=== PATIENT | male | born 1940 | race Caucasian/White ===

== ENCOUNTER 2020-05-05 14:12 | Inpatient (IN) | payer MEDICARE, BC ==
[~2020-05-05 14:12] MED LIST: Iopamidol 370 76% 100 ML VIAL ONE; Iopamidol 370 76% 50 ML VIAL FS ONE; Metoprolol Tartrate 5 MG/5 ML VIAL ONE; Nitroglycerin 0.4 MG TAB (25 Tab Bottle) ONE
[2020-05-05 14:35] LABS: #Eosinphils 0.1 thou/uL (0.0-0.7); #Lymphocytes 2.1 thou/uL (1.20-3.40); #Monocytes 1.1 thou/uL (0.11-0.59); #Neutrophils 8.2 thou/uL (1.40-6.50); %Basophils 0.3 % (0.0-1.0); %Eosinophils 0.4 % (0.0-10.0); %Monocytes 9.8 % (0.0-10.0); %Neutrophils 71.5 % (42.0-75.0); Hemoglobin 15.4 g/dL (14.0-18.0); Mean Corpuscular HGB CONC 33.9 g/dL (32.0-36.0); Mean Corpuscular Volume 91.4 fL (78.0-98.0); Mean Platelet Volume 9.6 fL (7.4-10.4); Platelet Count 188 thou/uL (130-400); RBC Distribution Width 11.5 % (11.5-14.5); Red Blood Cell (RBC) Count 4.96 mill/uL (4.70-6.10); White Blood Cell (WBC) Count 11.5 thou/uL (4.8-10.8)
--- NOTE | 2020-05-05 14:45 | RAD ---
Portable frontal chest radiograph: 05/05/2020 COMPARISON: None HISTORY: Chest pain FINDINGS: There is prominence of the cardiac silhouette. There is atherosclerotic ulceration aortic a rch. Cervical spine fusion hardware is present. Linear interstitial density in the perihilar regions and both lung bases noted, nonspecific and of uncertain chronicity. No focal consolidation or alveolar edema. IMPRESSION: Interstitial prominence as above.
[2020-05-05 14:56] LABS: ALT (SGPT) 24 U/L (8-55); AST (SGOT) 46 U/L (5-34); Albumin 3.8 g/dL (3.4-4.8); Alkaline Phosphatase 72 U/L (40-110); Anion Gap 16 mmol/L (10-20); BUN (Urea Nitrogen) 36 mg/dL (8.4-25.7); Bilirubin, Total 1.2 mg/dL (0.2-1.2); Calc. Creatinine Clearance 0 mL/min (70-130); Calcium 9.2 mg/dL (7.8-10.44); Carbon Dioxide 22 mmol/L (23-31); Chloride 106 mmol/L (98-107); Glucose 180 mg/dL (83-110); Potassium 4.7 mmol/L (3.5-5.1); Protein, Total 6.8 g/dL (5.8-8.1); Sodium 139 mmol/L (136-145)
[2020-05-05 15:39] LABS: CKMB 32.9 ng/mL (0-6.6)
[2020-05-05] MEDS ORDERED: Acetaminophen/Codeine 30-300mg Tablet PO PRN ×2 (16:15)
[2020-05-05] MEDS ORDERED: Nitroglycerin 0.4 MG TAB (25 Tab Bottle) SL PRN (16:15)
[2020-05-05] MEDS ORDERED: Nitroglycerin 0.4 MG TAB (25 Tab Bottle) ONE (17:08)
[2020-05-05] MEDS ORDERED: Morphine 2 MG/ML VIAL ONE ×4 (17:33→21:40)
[2020-05-05] MEDS ORDERED: Morphine 2 MG/ML VIAL SLOW IVP PRN (17:54)
[2020-05-05] MEDS ORDERED: Digoxin 0.5 MG/2 ML AMP SLOW IVP SCH (18:00)
--- NOTE | 2020-05-05 18:31 | HP ---
INDICATION FOR ADMISSION: A 79-year-old patient with acute anterolateral myocardial infarction. HISTORY OF PRESENT ILLNESS: This is a 79-year-old gentleman with a history of known coronary artery disease, who suffered a myocardial infarction approximately 4 years ago and underwent angioplasty and stent placement in [place], [place] at [facility]. He was uncertain as to which vessel had been stented. He has since then been doing relatively well. He sees a bankruptcy judge in [place], [place]. He has a history of dyslipidemia, hypercholesterolemia, hypertension, and diabetes. No tobacco abuse. No early family history of heart disease. He woke this morning around 2 o'clock with chest pain. He said the pain became worse. He then called 911. It took quite a while apparently to get him, he says about two and half hours. He then was brought to the hospital. We were seeing him urgently when the patient came in. At this time. He said his pain was still about 2 to 4/[address]-segment elevation in the leads V3 through V6 with severe elevation in V4 and V5. It is also noted in V3, he had decreased R-wave progression and what appeared to be an old inferior myocardial infarction with Q-waves in II, III, and aVF and some T-wave inversions in V1 and V2, as well as in aVL. He also has atrial fibrillation with a rapid ventricular response. He has an interventricular conduction abnormality. It was deemed having acute myocardial infarction. He denied any other significant problems. He said the pain was in the chest area heavy, did not have any radiation. He did not have any diaphoresis or worsening of shortness of breath. PAST MEDICAL HISTORY: Significant for cataract surgery. He has had a bilateral inguinal hernia repairs. He has had a myocardial infarction in the past, angioplasty and stent placement. He has had a prostatectomy. He had prostatectomy due to prostate cancer. He has had a left rotator cuff repair. He has had a C3 through C6 spinal fusion. He had more surgery, I believe second surgery was performed in the neck and later back in 1996 and 1982 for nerve entrapment. The bilateral inguinal hernia repairs were in the 1960s. He also has a history of arthritis. SOCIAL HISTORY: He is . He has children, who are alive and well with no heart disease. He has had no tobacco abuse. He has occasional alcohol use. He is retired. FAMILY HISTORY: Noncontributory. ALLERGIES: HE IS ALLERGIC TO PENICILLIN, ALSO CODEINE AND MORPHINE. REVIEW OF SYSTEMS: A 12-point review of systems mainly is unremarkable as noted in the history of present illness and also urinary incontinence. PRESENT MEDICATIONS: At home included; 1. Plavix 75 mg a day. 2. Coreg 12.5 mg b.i.d. 3. Lasix 20 mg a day. 4. Vitamins. 5. He had had a history of atrial fibrillation in the past and been on anticoagulation, but says the medication was stopped. PHYSICAL EXAMINATION: GENERAL: Reveals an elderly gentleman. He is in no acute distress at this time. VITAL SIGNS: Blood pressure is 118/78 and heart rate is in the 90s to one teens with atrial fibrillation. He is afebrile. HEENT: Shows the head to be normocephalic and atraumatic. I do not hear any carotid bruits. CHEST: Clear to auscultation anteriorly. CARDIOVASCULAR: Reveals an irregularly irregular tachycardia. I cannot hear any gross murmurs. Heart sounds are somewhat distant. ABDOMEN: Shows obesity with positive bowel sounds. EXTREMITIES: Showed no clubbing or cyanosis. He has 2+ lower extremity edema. Pedal pulses are present, but difficult to palpate. Femoral pulses are present. NEUROLOGIC: He appears to be grossly intact. LABORATORY DATA: EKG shows atrial fibrillation with acute anterolateral myocardial infarction with rapid ventricular response. Now please note that the laboratory data, which were pending at the time of original dictation, the creatinine was 2.45 with a BUN was 36, sodium was 137, chloride was 106, potassium was 4.7, and blood sugar was 180. His troponin I is 8.5 and CPK-MB was 32.9. AST is 46 with ALT of 24. Hemoglobin is 15.4, hematocrit 45.3, and WBC is 11.5 with a platelet count of 188,000. ASSESSMENT AND PLAN: Acute anterolateral myocardial infarction. The patient will be advised to undergo a cardiac catheterization on an urgent basis. I have explained the procedure and the risks to him to include bleeding, infection, possible myocardial infarction, cerebrovascular accident, renal insufficiency, allergic contrast reaction, and possibility of . He understands and agrees to proceed at now. Job ID: [id number]
[2020-05-05] MEDS ORDERED: HUMULIN R 100 UNITS in Sodium Chloride 0.9% 100 ML IVPB SCH (20:00)
[2020-05-05] MEDS ORDERED: Dextrose 50% Abboject 50 ML SYRINGE SLOW IVP PRN (20:00)
[2020-05-05] MEDS ORDERED: Heparin 10,000 UNITS/ 10 ML VIAL SLOW IVP SCH (20:00)
[2020-05-05] MEDS ORDERED: Insulin Regular 300 UNITS/3 ML VIAL SC PRN (20:00)
[2020-05-05] MEDS ORDERED: Dextrose 5% in Water 1,000 ML IV PRN (20:00)
[2020-05-05] MEDS ORDERED: Heparin 25,000 units/D5W 500 ML IV SCH (20:00)
[2020-05-05] MEDS: Carvedilol 6.25 MG TAB PO SCH (20:36)
[2020-05-05] MEDS: Insulin Regular 300 UNITS/3 ML VIAL SC PRN (20:37)
[2020-05-05] MEDS ORDERED: Furosemide 40 MG/4 ML VIAL ONE (21:24)
[2020-05-05 21:56] LABS: CKMB 31.6 ng/mL (0-6.6); Critical Call CKMB RESULT DECREASING
[2020-05-05] MEDS ORDERED: Furosemide 40 MG/4 ML VIAL SLOW IVP SCH (22:00)
--- NOTE | 2020-05-05 22:13 | RAD ---
PORTABLE SUPINE FRONTAL CHEST RADIOGRAPH: 05/05/20 COMPARISON: 05/05/20 HISTORY: Short of breath. FINDINGS: Increased linear interstitial densities noted in the perihilar regions in the medial aspect of both l tobias bases, nonspecific and grossly unchanged. There is cervical spine fusion hardware present. Heart and mediastinal contours are stable. IMPRESSION: No significant interval change. POS: PACO
[2020-05-05] MEDS ORDERED: Morphine 4 MG/ML VIAL ONE (22:23)
[2020-05-05] MEDS ORDERED: Morphine 4 MG/ML VIAL SLOW IVP SCH (22:25)
[2020-05-05] MEDS ORDERED: Nitroglycerin 50 MG/250 ML BOT 250 ML ONE (22:37)
[2020-05-05] MEDS ORDERED: Nitroglycerin 50 MG/250 ML BOT 250 ML IVPB SCH (22:45)
--- NOTE | 2020-05-05 23:40 | CON ---
DATE OF CONSULTATION: HISTORY OF PRESENT ILLNESS: This is a 79-year-old gentleman, with a history of an acute right coronary artery occlusion 3 to 4 years ago, at which time he underwent stenting of his right coronary artery in [place]. He had AFib with RVR and was to be cardioverted, but had some possible thrombus in the appendage and was treated with Coumadin for six months. He evidently had no recurrence of his AFib and his Coumadin was stopped. Unfortunately, his followup was spotty, mostly due to the patient being unhappy with his doctors. He had a statin intolerance and Zetia intolerance. He was doing relatively well until about midnight last night or about 18 hours ago when he developed chest pain that did not resolve and he was picked up by the EMS and brought to the hospital. I am not sure of the course of events because he states he requested to come to [facility], but he could not report to the emergency room until about 2 o'clock in the afternoon, so I do not know what happened in the intervening 12 hours. In any event, his troponin was elevated at 8. He was taken to the r and d lab technician, where he was found to have about a 60% left main, but also had subtotal lesions in an LAD that was rather diffusely diseased. His circumflex had moderate disease and his right coronary artery had moderate diffuse distal disease after a stented area and then about a 70% to 80% mid PDA lesion. Left ventricular systolic function was severely impaired with anteroapical akinesis. LV systolic pressure was about 92 and LVEDP was 19 to 21. PAST MEDICAL HISTORY: Patient's past medical history includes a remote stroke about 20 years ago, etiology unknown. He has a history of robotic prostatectomy in 2002 at [facility]. He has also had rotator cuff surgery, C3 through 6 fusion and then repeat surgery for nerve entrapment. He has had bilateral inguinal hernia repairs and cholecystectomy. His past medical history otherwise includes hypertension, dyslipidemia, arthritis, coronary artery disease, prostate cancer with normal PSAs recently. He has borderline diabetes. SOCIAL HISTORY: He used tobacco products. He is . HOME MEDICATIONS: Included; 1. Carvedilol 12.5 b.i.d. 2. Lasix 20 a day. 3. Vitamin D2. 4. Plavix 75 a day. ALLERGIES: HE HAS ALLERGIES TO MORPHINE, WHICH MAKES HIM CRAZY POTASSIUM. HE ALSO HAS STATIN INTOLERANCE AND DOES NOT TAKE HIS ZETIA DUE TO SIDE EFFECTS. PHYSICAL EXAMINATION: GENERAL: He is alert, cooperative gentleman, in no distress. Short statured, resting comfortably in the PACU. NECK: No carotid bruits. LUNGS: He has increase in his chest AP diameter, but clear lung trejo anteriorly. No wheezes. He does have a productive cough. CARDIAC: Irregular rhythm and I do not appreciate any murmurs. VITAL SIGNS: Blood pressure is 110 on a nitroglycerin drip and his heart rate is variable between 80 and 110. ABDOMEN: Quite obese. Nontender. EXTREMITIES: He has 2+ edema of his left lower extremity and 1+ edema of his right lower extremity and I do feel a palpable left posterior tibial pulse. LABORATORY VALUES: Troponin of 8. Creatinine 2.45. Hemoglobin 15. ASSESSMENT AND PLAN: At this time, patient appears to have had an anteroseptal infarction based on the fact that his anteroapical wall is akinetic and he had a reported normal echo about a year and a half ago. He also had reported fairly normal EKG in August of this year compared to a markedly abnormal EKG now. His LAD is diffusely diseased, but it does have a bypassable segment. However, as the patient is 18 hours into an anterior septal CO, I think urgent surgical intervention was probably not appropriate. Job ID: [id number] [facility]
[2020-05-06] MEDS ORDERED: Morphine 4 MG/ML VIAL ONE (01:04)
[2020-05-06] MEDS ORDERED: Sodium Chloride 0.9% 10 ML ONE (01:05)
[2020-05-06] MEDS ORDERED: Morphine 4 MG/ML VIAL SLOW IVP PRN (01:52)
--- NOTE | 2020-05-06 01:57 | CON ---
DATE OF CONSULTATION: REASON FOR ADMISSION: Chest pain. HISTORY OF PRESENT ILLNESS: This is a 79-year-old male patient with known history of coronary artery disease. He presents to the emergency room reporting chest pain that is localized in the retrosternal area described as pressure-like in nature, occurred at rest, lasted more than 2.5 hours. In the ER, he was found to have ST-elevation UT. He was emergently taken to the label folder. His cardiac cath did show multivessel disease not amenable to stenting. He then developed atrial fibrillation. He was started on a heparin drip and currently he is in the PACU. He continues to complain off and on chest pain. He did complain of sudden onset of shortness of breath. He denies any fevers. Denies any chills. He was seen by Cardiology and he was given digoxin for his atrial fibrillation. PAST MEDICAL HISTORY: 1. Cataract surgery. 2. Diabetes. 3. Coronary artery disease, status post UT four years ago, status post angioplasty and stent placement. 4. High cholesterol. 5. High blood pressure. 6. Status post prostatectomy for prostate cancer. 7. Status post left rotator cuff repair. 8. C3 through C6 spinal fusion. 9. Back surgery. 10. Bilateral inguinal hernia repair. 11. Arthritis. 12. Asbestosis. SOCIAL HISTORY: He does not smoke. Does not drink. FAMILY HISTORY: Noncontributory. REVIEW OF SYSTEMS: All systems reviewed except the above mentioned found to be negative. ALLERGIES: CODEINE, MORPHINE, AND PENICILLIN. PHYSICAL EXAMINATION: GENERAL: He is awake, alert, oriented, does not appear in distress. Does appear a bit tachypneic. VITAL SIGNS: His blood pressure is 151/93, his heart rate is 90, pulse ox 95% on 4 L nasal cannula. HEENT: Head is nontraumatic, normocephalic. Pupils equal, reactive. Extraocular movements are intact. He does have puffiness underneath his eyes. NECK: Supple. No adenopathy. No murmur. Thyroid is not palpable. Trachea is midline. No supraclavicular adenopathy. HEART: S1, S2. Irregular. No murmur. No gallops. No friction rubs. No displacement of PMI. LUNGS: Decreased air entry bilaterally. Diffuse expiratory wheezing. ABDOMEN: Bowel sounds are positive. Nontender abdomen. EXTREMITIES: He does have 3+ pitting edema bilateral lower extremity, which is chronic as per him. NEURO: Cranial nerves 2 through 12 within normal limits. Normal motor function. Normal sensory function. LABORATORY DATA: Blood work shows WBC of 11.5, hemoglobin of 15.4, platelets of 188. PTT 54.9. Sodium 139, bicarb 22, BUN 36, creatinine 2.45. CK-MB 32.9. Troponin 8.555, repeat 11.739. EKG shows atrial fibrillation, significant ST-segment elevation in leads V3 through V6 with severe elevation in V4 and V5. Chest x-ray shows interstitial prominence. ASSESSMENT AND PLAN: This is a 79-year-old male patient presenting with ST-elevation myocardial infarction, underwent a cardiac cath that showed multivessel disease. Recommendation is for him to undergo open-heart surgery. While he was in the label folder, developed rapid atrial fibrillation. Currently, I believe he is in congestive heart failure. As reported during the cardiac cath, his EF is 20%. Cardiac: The patient is on heparin drip. I gave him an extra dose of IV Lasix and see if he responds to that. I did stop his IV fluids for now and I am considering also using DuoNeb since he does have history of asbestosis. He does use inhalers every now and then. Renal system, electrolytes: The patient does have acute on chronic renal insufficiency. He did receive IV contrast and hence he was on IV fluids but he might be fluid overloaded, so we will hold off on the IV fluids for now until his breathing improves and then we will reassess. Also, we will recheck his electrolytes in the morning. Endocrinology. The patient is diabetic. He will be on insulin sliding scale. Deep venous thrombosis prophylaxis, on SCDs and he is on heparin drip. I did discuss with him his code status and he wishes to be a full code. Job ID: [id number]
[2020-05-06 04:17] LABS: CKMB 32.8 ng/mL (0-6.6)
[2020-05-06 04:22] LABS: Anion Gap 15 mmol/L (10-20); BUN (Urea Nitrogen) 37 mg/dL (8.4-25.7); CK (CPK) 466 U/L (30-200); Calc. Creatinine Clearance 0 mL/min (70-130); Calcium 8.7 mg/dL (7.8-10.44); Carbon Dioxide 19 mmol/L (23-31); Chloride 108 mmol/L (98-107); Glucose 176 mg/dL (83-110); Potassium 4.4 mmol/L (3.5-5.1); Sodium 138 mmol/L (136-145)
[2020-05-06] MEDS: Aspirin 325 MG TAB PO SCH (08:33)
[2020-05-06] MEDS: Furosemide 20 MG TAB PO SCH ×2 (08:34→10:25)
[2020-05-06] MEDS: Carvedilol 6.25 MG TAB PO SCH ×2 (08:34→20:59)
[2020-05-06] MEDS: Sodium Chloride 0.9% 1,000 ML IV SCH ×2 (08:34→22:13)
[2020-05-06] MEDS ORDERED: Furosemide 40 MG/4 ML VIAL ONE (08:39)
[2020-05-06 09:07] LABS: INR-International Normal Ratio 1.2; Prothrombin Time 15.2 sec (12.0-14.7)
[2020-05-06 09:08] LABS: PTT 69.7 sec (22.9-36.1)
--- NOTE | 2020-05-06 09:09 | PRG ---
DATE OF SERVICE: 05/06/2020 SUBJECTIVE: The patient is resting comfortably in bed this morning and states he feels better than yesterday. He is mildly dyspneic with conversation and does have a productive cough, which he states is a chronic condition related to allergies. He remains in atrial fibrillation with heart rate of 80 to 100. His troponin has peaked at about 11, and his total CPK was only about 466 this morning. His creatinine is 2.3. The patient is awake and alert and comfortable. He states he is very thirsty this morning, but is without chest pain. Examination was limited due to pending COVID test, but we will check his cardiac echo today. His enzymes, although elevated, did not rise to the level that would be consistent with massive anterior septal infarction, raising the question of whether some of this muscle is still viable. We will follow up with his echo, continue his heparin and no commitment at this time as to whether the patient is a candidate for coronary artery bypass grafting at this juncture. Certainly if echo shows improvement in EF, then would proceed with cabg keeping in mind recent plavix therapy Job ID: [id number] [facility]
[2020-05-06 09:38] LABS: Troponin I 13.461 ng/mL (< 0.028)
--- NOTE | 2020-05-06 09:55 | PDOC.HOSPP ---
- Subjective Encounter Date: 05/06/20 Encounter Time: 12:00 Subjective: Patient feels tired and short of breath. No chest pain. Maybe a little better than admission. - Objective Vital Signs & Weight: Vital Signs (12 hours) BP Pulse Ox 05/06/20 08:34 151/93 H 05/06/20 08:00 95 Most Recent Monitor Data Heart Rate from ECG 110 NIBP 143/91 NIBP BP-Mean 108 Respiration from ECG 27 SpO2 92 I&O: 05/05/20 05/06/20 05/07/20 06:59 06:59 06:59 Intake Total 235 Output Total 875 Balance -640 Result Diagrams: 05/05/20 14:25 05/06/20 03:30 Additional Labs: Accuchecks 05/05/20 20:19 POC Glucose 196 H Hospitalist ROS - Review of Systems Constitutional: reports: weakness. denies: fever, chills Respiratory: reports: shortness of breath. denies: cough Cardiovascular: denies: chest pain, palpitations Gastrointestinal: denies: nausea, vomiting, abdominal pain Genitourinary: denies: dysuria, hematuria - Medication Medications: Active Medications Generic Name Dose Route Start Last Admin Trade Name Freq PRN Reason Stop Dose Admin Aspirin 325 mg 05/06/20 09:00 05/06/20 08:33 Aspirin 325 Mg Tab PO 325 mg DAILY SAUD Administration Carvedilol 12.5 mg 05/05/20 21:00 05/06/20 08:34 Carvedilol 6.25 Mg Tab PO 12.5 mg BID SAUD Administration Furosemide 20 mg 05/06/20 09:00 05/06/20 08:34 Furosemide 20 Mg Tab PO 20 mg QAM SAUD Administration Heparin Sodium (Porcine) 0 units 05/05/20 20:00 05/05/20 22:08 Heparin 10,000 Units/ 10 Ml Vial SLOW IVP 2,640 unit WILLCALL SAUD Administration Sodium Chloride 1,000 mls @ 70 mls/hr 05/05/20 18:15 05/06/20 08:34 Normal Saline 0.9% IV 1,000 mls .[id number] SAUD Administration Insulin Human Regular 0 units 05/05/20 20:15 05/05/20 20:37 Insulin Regular 300 Units/3 Ml Vial SC 2 unit .MILD SLIDING PRN Administration MILD SLIDING SCALE Protocol Sodium Chloride 10 ml 05/05/20 21:00 05/06/20 08:34 Flush - Normal Saline 10 Ml Syringe IVF 10 ml Q12HR SAUD Administration - Exam General Appearance: NAD, awake alert ENT: moist mucosa Heart: RRR, no murmur, no gallops, no rubs Respiratory: CTAB, no wheezes, no rales, no ronchi Gastrointestinal: soft, non-tender, non-distended, normal bowel sounds Psychiatric: normal affect, normal behavior, A&O x 3 Hosp A/P (1) STEMI (ST elevation myocardial infarction) Status: Acute (2) CAD (coronary artery disease) Code(s): I25.10 - ATHSCL HEART DISEASE OF [place] CORONARY ARTERY W/O ANG PCTRS Status: Acute (3) Afib Code(s): I48.91 - UNSPECIFIED ATRIAL FIBRILLATION Status: Acute (4) Acute systolic (congestive) heart failure Code(s): I50.21 - ACUTE SYSTOLIC (CONGESTIVE) HEART FAILURE Status: Acute (5) Acute on chronic renal failure Code(s): N17.9 - ACUTE KIDNEY FAILURE, UNSPECIFIED; N18.9 - CHRONIC KIDNEY DISEASE, UNSPECIFIED Status: Acute - Plan Patient on heparin drip for STEMI. No plan as of yet for CABG. ECHO pending. Had fluids for renal failure with recent dye load for cardiac cath, but developed some trouble breathing last night so was given some Lasix. Heart rate in the 90s-100s with the afib.
[2020-05-06] MEDS: Insulin Regular 300 UNITS/3 ML VIAL SC PRN (10:31)
--- NOTE | 2020-05-06 10:40 | PRG ---
DATE OF SERVICE: 05/06/2020 SUBJECTIVE: This 79-year-old gentleman who presented yesterday with acute anterolateral myocardial infarction and history of coronary artery disease in the past had undergone angioplasty and stent placement to the right coronary artery and has been doing relatively well. Had a relatively normal echocardiogram less than a year ago and also had a relatively normal EKG. He presented with acute ST-segment elevation in anterolateral leads and also had atrial fibrillation with rapid ventricular response. He was taken emergently to the cardiac sleep lab technologist where he was found to have left main stenosis as well as subtotal occlusion of the left anterior descending artery in multiple areas. He also had significant disease in the distal right coronary artery and also obtuse marginal branch of left circumflex. Due to the diffuse disease in the left anterior descending artery, he was advised to at least have consultation with the CT surgeons to see whether or not he would be a candidate for bypass surgery. His ejection fraction appeared to be significantly compromised on the left ventriculogram. Ejection fraction was felt to be less than 20% to 25%. He also had some chest pain after procedure which he had most of time he left the sleep lab technologist. His chest pain was about 2/10, but then later on couple of hours later, chest pain was 4 to 5/10. This morning, he is free of any significant chest pain. He was placed on IV nitroglycerin as well as IV heparin and has remained stable otherwise throughout the night. His laboratory datashows that the peak CPK-MB thus far is only 32.8, it actually decreased slightly and then increased again to 32.8. Troponin I peak yesterday evening was 11.7. This will be repeated this morning. Does not appear that this is an acute large anterior myocardial infarction. Otherwise, I would suspect that the troponin I would be significantly more elevated. It is quite possible he has had ongoing ischemia and myocardial infarctions in the past that he was unaware of, but otherwise at this time, remains relatively stable. An echocardiogram is pending for today or tomorrow. We will determine whether or not what the ejection fraction looks like by echocardiogram and whether or not there are any other structural abnormalities. OBJECTIVE: GENERAL: This morning, he is awake. He is alert. He denies any symptoms. VITAL SIGNS: His blood pressure is 125/92, heart rate is 109, it shows atrial fibrillation, O2 saturations are 93%. He is afebrile. HEENT: Unremarkable. CHEST: Has bilateral expiratory wheezing. CARDIOVASCULAR: Irregularly irregular rhythm. No gross murmurs are noted. ABDOMEN: Shows obesity. Positive bowel sounds. EXTREMITIES: Show 2+ lower extremity edema. NEUROLOGIC: He appears to be grossly intact. LABORATORY DATA: Shows sodium 138, potassium was 4.4, BUN is 37 with a creatinine of 2.34 and on admission, creatinine was 2.45 and post cath this morning, the creatinine is 2.34 and remained stable. He did receive approximately 55 mL of contrast required for the procedure. His WBC is 11.5, hemoglobin 15.4, hematocrit 45.3, and platelet count was 188,000. IMPRESSION: 1. A 79-year-old gentleman, status post acute ST-segment elevation myocardial infarction involving the anterolateral wall of left ventricle with severe 3-vessel coronary artery disease, and also left main stenosis. He is being evaluated by CT surgery for possible bypass surgery. An echocardiogram will be pending for today. 2. History of coronary artery disease known in the past with angioplasty and stent placement. 3. Atrial fibrillation. We will continue to control the heart rate. He did have a history of atrial fibrillation in the past, had been on anticoagulation, but this medication was stopped after he had returned to sinus rhythm. 4. At this time, severe decrease in left ventricular systolic function and some evidence the patient may have congestive heart failure. We will start him on diuretics. He will need to be placed on standard medications except he cannot take SAE inhibitors due to the elevation in the renal function or creatinine, probably chronic renal insufficiency. We will add beta blockers. He has been taking Coreg 12.5 b.i.d. We will continue this medication. We will continue the heparin as well as the IV nitroglycerin to titrate to chest pain. Job ID: [id number]
--- NOTE | 2020-05-06 17:23 | CON ---
DATE OF CONSULTATION: 05/06/2020 HISTORY OF PRESENT ILLNESS: Keo Yousif a 79-year-old male, who woke up at 1 in the morning with chest discomfort radiating to both arms. He has a history of coronary stenting four years ago at [facility] in [place]. He does not remember which driver starting gate saw him. He has undergone cardiac catheterization. He has also been seen by the heart surgeon, Dr. Loredo. It is unclear at this point whether or not he is having surgery anytime in the near future. I was consulted because of his presence in the Critical Care Unit. He is felt to have an acute anterior lateral AL. PAST MEDICAL HISTORY: Remarkable for: 1. Atrial fib requiring cardioversion. 2. History of anticoagulation. 3. History of statin intolerance. 4. History of stroke 20 years ago reportedly. 5. History of prostatectomy in 2002 for cancer. 6. History of rotator cuff surgery. 7. History of cervical spine surgery. 8. History of herniorrhaphies bilaterally in his groin. 9. History of hypertension. 10. Lipid disorder. 11. History of borderline diabetes. SOCIAL HISTORY: He is not a smoker, not a drinker at this time. He is not . There is no family in the room with him. MEDICATIONS: Reviewed. FAMILY HISTORY: Negative for lung disease in early age. REVIEW OF SYSTEMS: Otherwise negative. He has never been told he has COPD. PHYSICAL EXAMINATION: VITAL SIGNS: Heart rate is 95, blood pressure 103/71, respiratory rates in the 20s, and oximetry is in low 90s. HEENT: Pupils are equal. Sclerae are anicteric. NECK: Supple. LUNGS: Clear anteriorly. HEART: Regular rhythm. ABDOMEN: Soft and nontender. EXTREMITIES: Without clubbing, cyanosis, or edema. LABORATORY DATA: White count 11.5, hemoglobin 15.4, and platelets 188. Troponin was 13 this morning. Electrolytes were unremarkable. Anion gap was 11. Creatinine was 2.34. Creatinine in our system last time it was checked was in 2011 and was normal. IMPRESSION: 1. Myocardial infarction. 2. History of coronary artery disease. 3. History of stroke. 4. Acute on chronic kidney disease. 5. Supportive care appears to have been recommended by the surgeons now because of the recent acute myocardial infarction. At some point in time, he will be a candidate for surgery, but this will be determined by the heart surgeon. He is having no respiratory issues at this point in time. This was a 70 min consult with greater than 50% of the time spent on the unit with coordination of care. Job ID: [id number] MTDD
[2020-05-06 18:17] LABS: SARS-CoV-2 MS2 Positive; SARS-CoV-2 N Gene Negative; SARS-CoV-2 S Gene Negative; SARS-CoV-2 by NAA Not Detected (NotDetected); SARS-CoV-2 orf1ab Negative
--- NOTE | 2020-05-06 21:09 | EKG ---
Test Reason : Blood Pressure : / mmHG Vent. Rate : 076 BPM Atrial Rate : 057 BPM P-R Int : 000 ms QRS Dur : 130 ms QT Int : 414 ms P-R-T Axes : 000 -64 041 degrees QTc Int : 465 ms Atrial fibrillation Left axis deviation Right bundle branch block Inferior infarct (cited on or before 05-MAY-2020) Anterior injury pattern ACUTE MT / STEMI Abnormal ECG When compared with ECG of 05-MAY-2020 14:21, (Unconfirmed) Previous ECG has undetermined rhythm, needs review Serial changes of evolving Inferior infarct Present Confirmed by Oliver ZAMBRANO ([id number]) on 05/06/2020 9:08:57 PM Referred By: JUAN MANUEL Confirmed By:Oliver ZAMBRANO
[2020-05-07] MEDS: Simethicone Chewable 80 MG TAB PO PRN (02:24)
[2020-05-07 04:48] LABS: CKMB 30.5 ng/mL (0-6.6); Critical Call CKMB RESULT DECREASING
[2020-05-07] MEDS: Carvedilol 6.25 MG TAB PO SCH ×2 (08:33→20:39)
[2020-05-07] MEDS: Furosemide 20 MG TAB PO SCH (08:34)
[2020-05-07] MEDS: Aspirin 325 MG TAB PO SCH (08:34)
[2020-05-07 08:51] LABS: Troponin I 20.153 ng/mL (< 0.028)
[2020-05-07] MEDS ORDERED: Famotidine/PF 20 mg/2ml Vial SLOW IVP SCH (09:00)
[2020-05-07] MEDS: Ondansetron ODT 4 MG TAB SL PRN (09:14)
[2020-05-07] MEDS ORDERED: FLU VACC QS2020-21(65YR UP)/PF 240 MCG/0.7 ML SYRINGE IM ONE (10:30)
--- NOTE | 2020-05-07 10:56 | PRG ---
DATE OF SERVICE: 05/07/2020 SUBJECTIVE: Mr. Yousif is afebrile. Heart rate is in the 70s, blood pressure 122/96. He denies chest pain. He still a sheath in. OBJECTIVE: LUNGS: Clear anteriorly. HEART: Regular rhythm. ABDOMEN: Soft and nontender. EXTREMITIES: Without asymmetry or edema. LABORATORY DATA: There is no new lab except troponin which is 20. DIAGNOSTIC DATA: His echocardiogram showed ejection fraction of 20% to 25%. IMPRESSION AND PLAN: Myocardial infarction. I talked to Dr. Loredo that surgery has not planned for at least a few weeks if he remains stable. his heparin drip will be stopped with Dr. Figueroa approval and then the sheath will be removed. We will see any reason to leave the sheath or an arterial line in. He probably needs to have a lab repeated in the morning just to make sure his hemoglobin had dropped. His renal function had deteriorated significantly. Yesterday's creatinine was improved compared to the prior day. We will continue to follow. Job ID: [id number]
[2020-05-07] MEDS ORDERED: Furosemide 40 MG/4 ML VIAL ONE (11:10)
[2020-05-07] MEDS ORDERED: DOPamine 400 MG/D5W 250 ML 250 ML IVPB SCH (11:15)
[2020-05-07] MEDS ORDERED: Furosemide 40 MG/4 ML VIAL SLOW IVP SCH (11:15)
[2020-05-07 13:19] LABS: Actual Bicarbonate (HCO3a) 14.9 mEq/L (22-28); Base Excess (BEa) -10.4 mEq/L (-2.0 to +3.0); CO2 Tension 31.4 mmHg (35.0-45.0); Calcium, Ionized (arterial) 1.15 mmol/L (1.12-1.30); Carboxyhemoglobin (COHb) 0.3 gm% (0.0-3.0); Hemoglobin (Hb) 14.3 g/dL (14.0-18.0); O2 Tension (PaO2), arterial 358.4 mmHg (> 70.0); Potassium - ABG Lab 4.32 mmol/L (3.70-5.30); pH, Arterial 7.29 (7.35-7.45)
[2020-05-07 13:21] LABS: Puncture Site L.R.
[2020-05-07] MEDS: Sodium Chloride 0.9% 1,000 ML IV SCH (15:49)
--- NOTE | 2020-05-07 17:16 | PDOC.HOSPP ---
- Subjective Encounter Date: 05/07/20 Encounter Time: 17:15 Subjective: f/u for anterolateral STEMI on prior Heparin gtt and current med mgmt with likely surgical intervention at later date if remains stable. - Objective Vital Signs & Weight: Vital Signs (12 hours) Temp Pulse Resp BP Pulse Ox 05/07/20 12:00 100 05/07/20 11:00 72 27 H 96 05/07/20 10:00 98.6 F 05/07/20 09:00 98.6 F 05/07/20 08:33 144/78 H 05/07/20 08:00 98.6 F 96 Weight Weight 194 lb 0.108 oz Most Recent Monitor Data Heart Rate from ECG 75 NIBP 118/72 NIBP BP-Mean 87 Respiration from ECG 16 SpO2 99 I&O: 05/06/20 05/07/20 05/08/20 06:59 06:59 06:59 Intake Total 235 3919 100 Output Total 875 905 700 Balance -640 3014 -600 Result Diagrams: 05/05/20 14:25 05/06/20 03:30 Additional Labs: Accuchecks 05/07/20 05/07/20 05/07/20 16:55 12:11 05:50 POC Glucose 141 H 147 H 128 H 05/06/20 05/06/20 21:20 17:16 POC Glucose 105 H 115 H Laboratory Tests 05/05/20 05/05/20 05/05/20 14:25 17:19 20:39 Creatine Kinase Troponin I 8.525 H* 9.765 H* 11.739 H* SARS-CoV-2 (PCR) 05/06/20 05/06/20 05/07/20 07:45 08:30 03:20 Creatine Kinase 430 H Troponin I 13.461 H* SARS-CoV-2 (PCR) Not Detected 05/07/20 05/07/20 03:20 08:05 Creatine Kinase Troponin I 19.609 H* 20.153 H* SARS-CoV-2 (PCR) Radiology Reviewed by me: Yes (Echo - EF 20-25%, akinetic apex, global hypokinesis) EKG Reviewed by me: Yes (Tele - A-fib in 70's) Hospitalist ROS - Medication Medications: Active Medications Generic Name Dose Route Start Last Admin Trade Name Freq PRN Reason Stop Dose Admin Aspirin 325 mg 05/06/20 09:00 05/07/20 08:34 Aspirin 325 Mg Tab PO 325 mg DAILY SAUD Administration Carvedilol 12.5 mg 05/05/20 21:00 05/07/20 08:33 Carvedilol 6.25 Mg Tab PO 12.5 mg BID SAUD Administration Furosemide 20 mg 05/06/20 09:00 05/07/20 08:34 Furosemide 20 Mg Tab PO 20 mg QAM SAUD Administration Sodium Chloride 1,000 mls @ 70 mls/hr 05/05/20 18:15 05/07/20 15:49 Normal Saline 0.9% IV Not Given .[id number] [facility] Insulin Human Regular 0 units 05/05/20 20:15 05/06/20 10:31 Insulin Regular 300 Units/3 Ml Vial SC 2 unit .MILD SLIDING PRN Administration MILD SLIDING SCALE Protocol Nitroglycerin 0.4 mg 05/05/20 16:15 05/06/20 23:05 Nitroglycerin 0.4 Mg Tab (25 Tab Bottle) SL 0.4 mg Q5MIN PRN Administration Chest Pain Ondansetron HCl 8 mg 05/07/20 09:10 05/07/20 09:14 Ondansetron Odt 4 Mg Tab SL 8 mg BID PRN Administration Nausea/Vomiting Simethicone 80 mg 05/07/20 01:49 05/07/20 02:24 Simethicone Chewable 80 Mg Tab PO 80 mg PCHS PRN Administration Gas Pain Sodium Chloride 10 ml 05/05/20 16:15 05/07/20 10:07 Flush - Normal Saline 10 Ml Syringe IVF 10 ml PRN PRN Administration Saline Flush Sodium Chloride 10 ml 05/05/20 21:00 05/07/20 10:07 Flush - Normal Saline 10 Ml Syringe IVF Not Given Q12HR [facility] - Exam General Appearance: NAD, awake alert Eye: PERRL, anicteric sclera ENT: normocephalic atraumatic, no oropharyngeal lesions Neck: supple, symmetric, no JVD, no thyromegaly, no lymphadenopathy Heart: no gallops, no rubs, normal peripheral pulses, irregular Heart - other findings: S1, S2 Respiratory - other findings: few basilar crackles and rhonchi Gastrointestinal: soft, non-tender, non-distended, normal bowel sounds, no palpable masses Gastrointestinal - other findings: obese Extremities: no cyanosis, 2+ LE edema Skin: normal turgor, no lesions Neurological: cranial nerve grossly intact, no new deficit Musculoskeletal: normal tone, generalized weakness Psychiatric: normal affect, A&O x 3 Hosp A/P (1) STEMI (ST elevation myocardial infarction) Status: Acute Qualifiers: Involved coronary artery: left main coronary artery Qualified Code(s): I21.01 - ST elevation (STEMI) myocardial infarction involving left main coronary artery Plan: Continue med mgmt, likely surgical intervention at a later date when stabilizing, continue ASA/Coreg/Nitro gtt (2) CAD (coronary artery disease) Code(s): I25.10 - ATHSCL HEART DISEASE OF [place] CORONARY ARTERY W/O ANG PCTRS Status: Acute Plan: See above #1, med mgmt and monitor clinical response (3) Acute systolic (congestive) heart failure Code(s): I50.21 - ACUTE SYSTOLIC (CONGESTIVE) HEART FAILURE Status: Acute Plan: Secondary to #1, continue Lasix/ASA/Coreg, holding SAE-i due to HONG/CKD (4) Afib Code(s): I48.91 - UNSPECIFIED ATRIAL FIBRILLATION Status: Chronic Qualifiers: Atrial fibrillation type: longstanding persistent Qualified Code(s): I48.11 - Longstanding persistent atrial fibrillation Plan: Rate-controlled currently, intermediate anticoagulation after d/c (5) Acute on chronic renal failure Code(s): N17.9 - ACUTE KIDNEY FAILURE, UNSPECIFIED; N18.9 - CHRONIC KIDNEY DISEASE, UNSPECIFIED Status: Acute Plan: Avoid nephrotoxic meds and limit contrast exposure, serial creatinine - Plan child welfare social worker, respiratory therapy, incentive spirometry, DVT proph w/SCDs Continue critical support Continue ASA/Coreg/Nitro gtt Continue Lasix CABG when clinically stabilized AM lab: BMP, CBC, PT/PTT
[2020-05-07 17:50] LABS: Hemoglobin 13.4 g/dL (14.0-18.0)
[2020-05-07 17:56] LABS: INR-International Normal Ratio 1.3; Prothrombin Time 16.6 sec (12.0-14.7)
[2020-05-07 17:57] LABS: PTT 37.8 sec (22.9-36.1)
[2020-05-07] MEDS ORDERED: Heparin 10,000 UNITS/ 10 ML VIAL SLOW IVP SCH (21:00)
[2020-05-07] MEDS ORDERED: Heparin 25,000 units/D5W 500 ML IV SCH (21:00)
[2020-05-08 03:36] LABS: INR-International Normal Ratio 1.3; Prothrombin Time 16.1 sec (12.0-14.7)
[2020-05-08] MEDS: Sodium Chloride 0.9% 1,000 ML IV SCH (03:44)
[2020-05-08 04:02] LABS: Anion Gap 16 mmol/L (10-20); BUN (Urea Nitrogen) 63 mg/dL (8.4-25.7); Calc. Creatinine Clearance 29 mL/min (70-130); Calcium 8.3 mg/dL (7.8-10.44); Carbon Dioxide 18 mmol/L (23-31); Chloride 107 mmol/L (98-107); Glucose 134 mg/dL (83-110); Potassium 4.3 mmol/L (3.5-5.1); Sodium 137 mmol/L (136-145)
[2020-05-08 04:28] LABS: Critical Call Chem Troponin I RESULT DECREASING; Troponin I 18.207 ng/mL (< 0.028)
[2020-05-08] MEDS ORDERED: Furosemide 20 MG/2 ML VIAL SLOW IVP SCH (04:45)
[2020-05-08 04:56] LABS: Band 2 % (5-11); Eosinophils 1 % (0-10); Hemoglobin 13.3 g/dL (14.0-18.0); Lymphocytes 15 % (21-51); MDiff Complete? YES; Mean Corpuscular HGB CONC 34.5 g/dL (32.0-36.0); Mean Corpuscular Hemoglobin 31.7 pg (27.0-31.0); Mean Corpuscular Volume 91.8 fL (78.0-98.0); Mean Platelet Volume 10.3 fL (7.4-10.4); Monocytes 6 % (0-10); Neutrophil 76 % (42-75); Platelet Count 155 thou/uL (130-400); RBC Distribution Width 11.4 % (11.5-14.5); Red Blood Cell (RBC) Count 4.19 mill/uL (4.70-6.10); White Blood Cell (WBC) Count 9.8 thou/uL (4.8-10.8)
--- NOTE | 2020-05-08 06:55 | PRG ---
DATE OF SERVICE: 05/08/2020 The patient is stable overnight and denies any chest pain for the past 24 hours. His blood pressure has been in the 120 range and his heart rate is 70, atrial fibrillation, occasionally pause. His I's and O's are fairly equal in the past 24 hours. His hemoglobin is 13. His creatinine is stable at 2.5. His troponin is stable at about 18. The patient still has a cough and his lung exam reveals some rhonchi. Otherwise, he has no peripheral edema at this time. Based on his echo and EKG, it appears he has had a completed anterior apical infarct. That target vessel was a not a very good target vessel to begin with, and I think conservative or medical management at this time is probably the most appropriate course of action. Job ID: [id number]
[2020-05-08] MEDS ORDERED: Aspirin 325 MG TAB PO SCH (09:00)
[2020-05-08] MEDS: Carvedilol 6.25 MG TAB PO SCH ×2 (09:00→20:18)
[2020-05-08] MEDS: Furosemide 20 MG TAB PO SCH (09:00)
[2020-05-08] MEDS ORDERED: Furosemide 40 MG/4 ML VIAL SLOW IVP SCH (09:00)
[2020-05-08] MEDS: Famotidine/PF 20 mg/2ml Vial SLOW IVP SCH (09:20)
[2020-05-08] MEDS ORDERED: Carvedilol 6.25 MG TAB PO SCH (10:15)
--- NOTE | 2020-05-08 10:40 | PRG ---
DATE OF SERVICE: 05/08/2020 SUBJECTIVE: This is a very pleasant 79-year-old gentleman, who has history of COPD, coronary artery disease, status post myocardial infarction in the past with angioplasty stent placed into the right coronary artery, who presented with anterolateral myocardial infarction. Cardiac enzymes were not significantly elevated, but the patient was having chest pain. He was taken to cardiac veterinarian laboratory animal care where he was found to have diffuse coronary artery disease with left main stenosis and 95% left anterior descending artery in several places proximal, mid, and distal as well as distal right coronary artery stenosis and plaque formation of about 30% noted in the circumflex vessel. He has remained relatively stable. He did have some episode yesterday with bradycardia and hypotension when the sheath was being removed. This was likely vagal.He has been seen by CV Surgery and is deemed not to be a very good candidate for bypass surgery at this time. He did undergo an echocardiogram, which shows ejection fraction of 20% to 25%. Only the base of the heart appears to be moving, the remainder of the segments appeared to be akinetic. It may be best to treat him medically due to his severe disease and severe decrease in left ventricular systolic function. He also has a history of COPD. He has had intermittent atrial fibrillation. He has diabetes. OBJECTIVE: VITAL SIGNS: Today show a heart rate in the 50s, he has a sinus rhythm with occasional PACs, respiratory rates in the 20 to 24 range, O2 saturations are still stable 90% range, blood pressure is 116/63. HEENT: Unremarkable. CHEST: Has diffuse rhonchi throughout. CARDIOVASCULAR: Reveals a regular rhythm. I do not have any gross murmurs. He does have a systolic murmur at the apex. ABDOMEN: Shows morbid obesity. Positive bowel sounds are present. EXTREMITIES: Show 2+ lower extremity edema. NEUROLOGIC: The patient appears to be intact. LABORATORY DATA: Today shows a WBC of 9.8, hemoglobin 13.3, and platelet count 155,000. Sodium is 137, potassium 4.3, chloride 107, BUN was 63, creatinine is 2.55, blood sugar is 134. His troponin I is 18.2, and this is actually trending downwards now. His peak troponin I after admission was 20.1. It appears that he has suffered anterior myocardial infarction in the past. This most likely is just a reinfarction of the same area on extension and would suspect with a large acute anterior myocardial infarction that he would have had significantly higher troponin I and then a peak of 20. He has been placed on heparin due to his chronic renal insufficiency and also his PTT has been maintained anywhere between 50 to 70. He has had no further chest pain within the last 24 hours. PRESENT MEDICATIONS: Include: 1. Heparin this has been IV. We will switch this over to some other oral anticoagulation. 2. He is on aspirin 325 mg a day and can switch this to 81 mg a day. 3. He is on Coreg 12.5 mg b.i.d. 4. Pepcid IV 20 mg. 5. He has been given furosemide p.o. Today, he appears to be volume overloaded. We will give IV Lasix today. 6. He is on nitroglycerin p.r.n. as needed. 7. He is on albuterol treatment. IMPRESSION: 1. A 79-year-old gentleman, status post anterolateral myocardial infarction with a history of inferior myocardial infarction in the past with severe decrease in left ventricular systolic function. He was evaluated for possible bypass surgery. However, he is a very poor candidate due to his left main stenosis and severe 3-vessel disease, which includes multiple lesions in the left anterior descending artery. We will continue to treat him aggressively with medications. Could consider starting oral anticoagulation due to his decrease in left ventricular systolic function. He will need to be evaluated for LifeVest and then again will need to be re-evaluated in the future to see whether or not he will need to undergo an AICD implant due to his severe cardiomyopathy. 2. Cardiomyopathy, which will be treated aggressively medically. 3. Intermittent atrial fibrillation. He has a first-degree AV heart block. We will continue anticoagulation. We will consider starting him on Eliquis. 4. Diabetes dealt with by the primary care service. 5. History of chronic obstructive pulmonary disease. I believe he was still smoking prior to admission. This will need to be strongly encouraged that he stop smoking altogether. We will continue to follow the patient throughout his hospital course, but appears at this time that best management for the patient is aggressive medical therapy. Job ID: [id number] MTDD
[2020-05-08] MEDS: Apixaban 2.5 MG TAB PO SCH ×2 (10:56→20:18)
[2020-05-08] MEDS ORDERED: Aspirin Chewable 81 MG TAB PO SCH (11:00)
[2020-05-08] MEDS: Aspirin 325 MG TAB PO SCH (11:05)
[2020-05-08] MEDS: Insulin Regular 300 UNITS/3 ML VIAL SC PRN ×3 (11:11→21:58)
[2020-05-08] MEDS: Ondansetron ODT 4 MG TAB SL PRN (11:24)
--- NOTE | 2020-05-08 16:53 | PRG ---
DATE OF SERVICE: 05/08/2020 Mr. Yousif remains stable. Cardiology and Cardiothoracic surgery have recommended medical management. I have added routine nebulizer treatments to his care. I will not do pulmonary function tests at this time as it will not change our management. We will continue to follow. Job ID: [id number]
--- NOTE | 2020-05-08 18:37 | PDOC.HOSPP ---
- Subjective Encounter Date: 05/08/20 Encounter Time: 17:00 Subjective: f/u for STEMI medically managed and not deemed a good candidate for CABG. Receiving Eliquis/ASA/Coreg/Lasix. - Objective Vital Signs & Weight: Vital Signs (12 hours) Temp BP 05/08/20 12:00 98.6 F 05/08/20 10:47 136/60 05/08/20 09:00 136/60 05/08/20 08:00 98.1 F Weight Weight 194 lb 0.108 oz Most Recent Monitor Data Heart Rate from ECG 63 NIBP 129/73 NIBP BP-Mean 91 Respiration from ECG 30 SpO2 100 I&O: 05/07/20 05/08/20 05/09/20 06:59 06:59 06:59 Intake Total 3919 1916.3 727 Output Total 905 1730 395 Balance 3014 186.3 332 Result Diagrams: 05/08/20 03:09 05/08/20 03:09 Additional Labs: Accuchecks 05/08/20 05/08/20 05/08/20 16:05 11:03 06:20 POC Glucose 179 H 201 H 130 H 05/07/20 21:01 POC Glucose 134 H Laboratory Tests 05/05/20 05/05/20 05/05/20 14:25 17:19 20:39 Creatine Kinase Troponin I 8.525 H* 9.765 H* 11.739 H* SARS-CoV-2 (PCR) 05/06/20 05/06/20 05/07/20 07:45 08:30 03:20 Creatine Kinase 430 H Troponin I 13.461 H* SARS-CoV-2 (PCR) Not Detected 05/07/20 05/07/20 03:20 08:05 Creatine Kinase Troponin I 19.609 H* 20.153 H* SARS-CoV-2 (PCR) EKG Reviewed by me: Yes (Tele - SR) Hospitalist ROS - Medication Medications: Active Medications Generic Name Dose Route Start Last Admin Trade Name Freq PRN Reason Stop Dose Admin Apixaban 2.5 mg 05/08/20 09:00 05/08/20 10:56 Apixaban 2.5 Mg Tab PO 2.5 mg BID SAUD Administration Famotidine 20 mg 05/08/20 09:00 05/08/20 09:20 Famotidine/Pf 20 Mg/2ml Vial SLOW IVP 20 mg 0900 SAUD Administration Insulin Human Regular 0 units 05/05/20 20:15 05/08/20 16:09 Insulin Regular 300 Units/3 Ml Vial SC 2 unit .MILD SLIDING PRN Administration MILD SLIDING SCALE Protocol Morphine Sulfate 4 mg 05/06/20 01:52 05/08/20 00:17 Morphine 4 Mg/Ml Vial SLOW IVP 4 mg Q1H PRN Administration Chest Pain Nitroglycerin 0.4 mg 05/05/20 16:15 05/06/20 23:05 Nitroglycerin 0.4 Mg Tab (25 Tab Bottle) SL 0.4 mg Q5MIN PRN Administration Chest Pain Ondansetron HCl 8 mg 05/07/20 09:10 05/08/20 11:24 Ondansetron Odt 4 Mg Tab SL 8 mg BID PRN Administration Nausea/Vomiting Simethicone 80 mg 05/07/20 01:49 05/07/20 02:24 Simethicone Chewable 80 Mg Tab PO 80 mg PCHS PRN Administration Gas Pain Sodium Chloride 10 ml 05/05/20 16:15 05/07/20 10:07 Flush - Normal Saline 10 Ml Syringe IVF 10 ml PRN PRN Administration Saline Flush Sodium Chloride 10 ml 05/05/20 21:00 05/08/20 10:35 Flush - Normal Saline 10 Ml Syringe IVF 10 ml Q12HR SAUD Administration - Exam General Appearance: NAD, awake alert Eye: PERRL, anicteric sclera ENT: normocephalic atraumatic, no oropharyngeal lesions Neck: supple, symmetric, no JVD, no thyromegaly, no lymphadenopathy Heart: RRR, no gallops, no rubs, normal peripheral pulses, murmur present Heart - other findings: S1, S2 Respiratory: no tachypnea Respiratory - other findings: coarse rhonchi, few exp wheezes Gastrointestinal: soft, non-tender, non-distended, normal bowel sounds, no palpable masses Extremities: no cyanosis, 2+ LE edema Skin: normal turgor, no lesions Neurological: cranial nerve grossly intact, no new deficit Musculoskeletal: normal tone, generalized weakness Psychiatric: normal affect, A&O x 3 Hosp A/P (1) STEMI (ST elevation myocardial infarction) Status: Acute Qualifiers: Involved coronary artery: left main coronary artery Qualified Code(s): I21.01 - ST elevation (STEMI) myocardial infarction involving left main coronary artery Plan: Continue Eliquis/ASA/Coreg/Lasix (2) CAD (coronary artery disease) Code(s): I25.10 - ATHSCL HEART DISEASE OF [place] CORONARY ARTERY W/O ANG PCTRS Status: Acute Plan: Medical mgmt as pt not deemed an appropriate candidate for surgical intervention (3) Acute systolic (congestive) heart failure Code(s): I50.21 - ACUTE SYSTOLIC (CONGESTIVE) HEART FAILURE Status: Acute Plan: EF 20-25%, LifeVest for home, continue medical mgmt, Lasix 40mg po daily (4) Afib Code(s): I48.91 - UNSPECIFIED ATRIAL FIBRILLATION Status: Chronic Qualifiers: Atrial fibrillation type: longstanding persistent Qualified Code(s): I48.11 - Longstanding persistent atrial fibrillation (5) Acute on chronic renal failure Code(s): N17.9 - ACUTE KIDNEY FAILURE, UNSPECIFIED; N18.9 - CHRONIC KIDNEY DISEASE, UNSPECIFIED Status: Acute (6) Hyperglycemia Code(s): R73.9 - HYPERGLYCEMIA, UNSPECIFIED Status: Chronic Plan: Check A1C level in am - Plan social services director, respiratory therapy, out of bed/ambulate, DVT proph w/SCDs Continue critical support Continue ASA/Coreg/Eliquis Continue Lasix Continue medical mgmt as pt not deemed a surgical candidate AM lab: BMP, CBC, A1C
[2020-05-09 03:43] LABS: #Eosinphils 0.1 thou/uL (0.0-0.7); #Lymphocytes 1.4 thou/uL (1.20-3.40); #Monocytes 1.2 thou/uL (0.11-0.59); %Basophils 0.2 % (0.0-1.0); %Eosinophils 1.3 % (0.0-10.0); %Lymphocytes 14.2 % (21.0-51.0); %Monocytes 12.5 % (0.0-10.0); %Neutrophils 71.8 % (42.0-75.0); Hemoglobin 13.4 g/dL (14.0-18.0); Mean Corpuscular HGB CONC 33.9 g/dL (32.0-36.0); Mean Corpuscular Hemoglobin 31.2 pg (27.0-31.0); Mean Platelet Volume 10.1 fL (7.4-10.4); Platelet Count 206 thou/uL (130-400); RBC Distribution Width 11.5 % (11.5-14.5); Red Blood Cell (RBC) Count 4.28 mill/uL (4.70-6.10); White Blood Cell (WBC) Count 9.8 thou/uL (4.8-10.8)
[2020-05-09 03:46] LABS: Hemoglobin A1c 6.4 % (4.0-6.0)
[2020-05-09 04:01] LABS: Anion Gap 17 mmol/L (10-20); BUN (Urea Nitrogen) 77 mg/dL (8.4-25.7); Calc. Creatinine Clearance 24 mL/min (70-130); Calcium 8.6 mg/dL (7.8-10.44); Carbon Dioxide 21 mmol/L (23-31); Chloride 104 mmol/L (98-107); Glucose 169 mg/dL (83-110); Potassium 4.5 mmol/L (3.5-5.1); Sodium 137 mmol/L (136-145)
[2020-05-09] MEDS: Insulin Regular 300 UNITS/3 ML VIAL SC PRN ×4 (06:22→20:38)
[2020-05-09] MEDS: Apixaban 2.5 MG TAB PO SCH ×2 (08:37→20:34)
[2020-05-09] MEDS: Furosemide 20 MG TAB PO SCH (08:37)
[2020-05-09] MEDS: Aspirin Chewable 81 MG TAB PO SCH (08:37)
[2020-05-09] MEDS: Famotidine/PF 20 mg/2ml Vial SLOW IVP SCH (08:37)
[2020-05-09] MEDS: Carvedilol 6.25 MG TAB PO SCH ×2 (08:37→23:14)
[2020-05-09] MEDS ORDERED: Magnesium Sulfate 3 GM in Sodium Chloride 0.9% 100 ML IVPB SCH (10:30)
--- NOTE | 2020-05-09 10:47 | RAD ---
RADIOGRAPH CHEST 1 VIEW: DATE: 05/09/2020 TIME: 10:38 AM HISTORY: 79-year-old male with congestive heart failure COMPARISON: 05/05/2020 FINDINGS: Interval development of small mild airspace densities at the medial bases of bilateral lower lobes. N ew silhouetting of the left hemidiaphragm. Lateral costophrenic angles bilaterally are questionably effaced, questionable for bilateral small pleural effusions. Upper and mid lung zones remain clear. N o pneumothorax. IMPRESSION: Worsening of aeration of the bases of bilateral lower lobes.
--- NOTE | 2020-05-09 10:50 | PRG ---
DATE OF SERVICE: 05/09/2020 SUBJECTIVE: Keo Yousif is little more bronchospastic today. OBJECTIVE: VITAL SIGNS: Blood pressure 135/79, heart rate is 60, respiratory rates in the 20s, oximetry is 97. LUNGS: Remarkable for distant breath sounds with prolonged expiratory phase. HEART: Regular rhythm. ABDOMEN: Soft. EXTREMITIES: Without asymmetry. LABORATORY DATA: White count 9.8, hemoglobin 13.4, platelets 206. BUN 77, creatinine 3.16, up from 2.55. IMPRESSION AND PLAN: 1. Status post myocardial infarction. 2. Chronic obstructive pulmonary disease with bronchospasm. Intake and output are only positive 242, so I doubt this is cardiac asthma. We will check a chest x-ray in the morning. We will give him steroids. We will give a dose of magnesium. We will continue to follow. He probably needs to stay in the Critical Care Unit for now. Job ID: [id number]
[2020-05-09] MEDS: methylPREDNISolone Sod Succ 40 MG VIAL IVP SCH ×3 (11:58→23:31)
--- NOTE | 2020-05-09 15:32 | EKG ---
Test Reason : Blood Pressure : / mmHG Vent. Rate : 113 BPM Atrial Rate : 051 BPM P-R Int : 000 ms QRS Dur : 124 ms QT Int : 376 ms P-R-T Axes : 000 -58 086 degrees QTc Int : 515 ms Undetermined rhythm Left axis deviation Right bundle branch block Left ventricular hypertrophy with repolarization abnormality Inferior infarct , age undetermined Abnormal ECG ACUTE RI / STEMI Confirmed by YANA MAHARAJ ([id number]), video news editor SOFÍA MULLER ([id number]) on 05/09/2020 3:31:59 PM Referred By: Confirmed By:YANA Gonzalez
--- NOTE | 2020-05-09 18:52 | PDOC.HOSPP ---
- Subjective Encounter Date: 05/09/20 Encounter Time: 08:45 Subjective: Patient seen and examined for medical management. Denies any chest pain, shortness of breath or palpitations. No fever or chills. - Objective Vital Signs & Weight: Vital Signs (12 hours) Temp Pulse Resp BP Pulse Ox 05/09/20 16:00 97.5 F L 05/09/20 14:30 49 L 24 H 97 05/09/20 12:00 97.9 F 05/09/20 11:11 56 L 28 H 95 05/09/20 08:37 135/79 05/09/20 08:00 98.2 F 93 L Weight Weight 194 lb 0.108 oz Most Recent Monitor Data Heart Rate from ECG 53 NIBP 153/71 NIBP BP-Mean 98 Respiration from ECG 22 SpO2 94 I&O: 05/08/20 05/09/20 05/10/20 06:59 06:59 06:59 Intake Total 1916.3 1417 829.9 Output Total 1730 1175 457 Balance 186.3 242 372.9 Result Diagrams: 05/09/20 03:06 05/09/20 03:06 Additional Labs: Accuchecks 05/09/20 05/08/20 11:38 21:01 POC Glucose 153 H 170 H Abnormal Lab Results - Last 48 hrs 05/05/20 14:26: Crossmatch See Detail 05/08/20 03:09: Carbon Dioxide 18 L, BUN 63 H, Creatinine 2.55 H 05/08/20 03:09: RBC 4.19 L, Hgb 13.3 L, Hct 38.5 L, MCH 31.7 H, RDW 11.4 L, Neutrophils % (Manual) 76 H, Band Neuts % (Manual) 2 L, Lymphocytes % (Manual) 15 L 05/08/20 03:09: Troponin I 18.207 H* 05/08/20 03:09: PT 16.1 H 05/08/20 03:09: APTT 53.1 H 05/09/20 03:06: Carbon Dioxide 21 L, BUN 77 H, Creatinine 3.16 H 05/09/20 03:06: Hemoglobin A1c 6.4 H 05/09/20 03:06: RBC 4.28 L, Hgb 13.4 L, Hct 39.4 L, MCH 31.2 H, Lymphocytes % 14.2 L, Monocytes % 12.5 H, Neutrophils # 7.0 H, Monocytes # 1.2 H EKG Reviewed by me: Yes (Sinus rhythm on telemetry) Hospitalist ROS - Review of Systems Respiratory: denies: cough, dry, shortness of breath, hemoptysis, SOB with excertion, pleuritic pain, sputum, wheezing, other Cardiovascular: denies: chest pain, palpitations, orthopnea, paroxysmal noc. dyspnea, edema, light headedness, other - Medication Medications: Active Medications Generic Name Dose Route Start Last Admin Trade Name Freq PRN Reason Stop Dose Admin Albuterol/Ipratropium 3 ml 05/09/20 10:30 05/09/20 14:30 Ipratropium/Albuterol Sulfate 3 Ml Neb NEB 3 ml [id number] SAUD Administration Apixaban 2.5 mg 05/08/20 09:00 05/09/20 08:37 Apixaban 2.5 Mg Tab PO 2.5 mg BID SAUD Administration Aspirin 81 mg 05/09/20 09:00 05/09/20 08:37 Aspirin Chewable 81 Mg Tab PO 81 mg DAILY SADU Administration Carvedilol 6.25 mg 05/08/20 21:00 05/09/20 08:37 Carvedilol 6.25 Mg Tab PO 6.25 mg BID SAUD Administration Famotidine 20 mg 05/08/20 09:00 05/09/20 08:37 Famotidine/Pf 20 Mg/2ml Vial SLOW IVP 20 mg 0900 SAUD Administration Furosemide 40 mg 05/09/20 09:00 05/09/20 08:37 Furosemide 20 Mg Tab PO 40 mg QAM SAUD Administration Insulin Human Regular 0 units 05/05/20 20:15 05/09/20 16:58 Insulin Regular 300 Units/3 Ml Vial SC 3 unit .MILD SLIDING PRN Administration MILD SLIDING SCALE Protocol Methylprednisolone Sodium Succinate 20 mg 05/09/20 12:00 05/09/20 18:01 Methylprednisolone Sod Succ 40 Mg Vial IVP 20 mg Q6HR SAUD Administration Morphine Sulfate 4 mg 05/06/20 01:52 05/08/20 00:17 Morphine 4 Mg/Ml Vial SLOW IVP 4 mg Q1H PRN Administration Chest Pain Nitroglycerin 0.4 mg 05/05/20 16:15 05/06/20 23:05 Nitroglycerin 0.4 Mg Tab (25 Tab Bottle) SL 0.4 mg Q5MIN PRN Administration Chest Pain Ondansetron HCl 8 mg 05/07/20 09:10 05/08/20 11:24 Ondansetron Odt 4 Mg Tab SL 8 mg BID PRN Administration Nausea/Vomiting Simethicone 80 mg 05/07/20 01:49 05/07/20 02:24 Simethicone Chewable 80 Mg Tab PO 80 mg PCHS PRN Administration Gas Pain Sodium Chloride 10 ml 05/05/20 16:15 05/07/20 10:07 Flush - Normal Saline 10 Ml Syringe IVF 10 ml PRN PRN Administration Saline Flush Sodium Chloride 10 ml 05/05/20 21:00 05/09/20 11:51 Flush - Normal Saline 10 Ml Syringe IVF 10 ml Q12HR SAUD Administration - Exam General Appearance: NAD Heart: RRR, no gallops Respiratory: no wheezes, no ronchi Gastrointestinal: non-tender, normal bowel sounds Extremities: no cyanosis Neurological: no new deficit Hosp A/P - Plan Acute kidney injury on CKD stage IV COPD exacerbation Acute anterolateral myocardial infarction Acute systolic heart failureejection fraction 20 to 25% due to ischemic cardiomyopathy Hypertension Coronary artery disease Chronic metabolic acidosis probably due to renal insufficiency History of prostate cancer Chronic low back pain Impaired glucose tolerance Plan: Continue nebulizer treatment with steroids. Continue aspirin, beta-blockers. Add statins if okay with cardiology hold SAE inhibitor due to renal insufficiency. Recheck labs in a.m. Discontinue Ballard catheter in a.m.
[2020-05-09] MEDS ORDERED: Polyethylene Glycol 3350 17 GM Packet PO PRN (19:04)
[2020-05-09] MEDS: Senokot S 8.6-50 MG TAB PO SCH (20:34)
[2020-05-09] MEDS ORDERED: Atorvastatin Calcium 40 MG TAB PO SCH (21:00)
[2020-05-10 03:57] LABS: #Monocytes 0.5 thou/uL (0.11-0.59); #Neutrophils 7.3 thou/uL (1.40-6.50); %Basophils 0.1 % (0.0-1.0); %Eosinophils 0.2 % (0.0-10.0); %Lymphocytes 11.7 % (21.0-51.0); %Monocytes 5.7 % (0.0-10.0); %Neutrophils 82.4 % (42.0-75.0); Hemoglobin 13.8 g/dL (14.0-18.0); Mean Corpuscular HGB CONC 34.4 g/dL (32.0-36.0); Mean Corpuscular Hemoglobin 31.6 pg (27.0-31.0); Mean Platelet Volume 10.3 fL (7.4-10.4); Platelet Count 244 thou/uL (130-400); RBC Distribution Width 11.5 % (11.5-14.5); Red Blood Cell (RBC) Count 4.36 mill/uL (4.70-6.10); White Blood Cell (WBC) Count 8.8 thou/uL (4.8-10.8)
[2020-05-10 04:14] LABS: Anion Gap 18 mmol/L (10-20); BUN (Urea Nitrogen) 82 mg/dL (8.4-25.7); Calc. Creatinine Clearance 25 mL/min (70-130); Carbon Dioxide 17 mmol/L (23-31); Cardiac Risk 8.3 (Less than 4.5); Chloride 105 mmol/L (98-107); Cholesterol 165 mg/dl (< 200 Desired); Glucose 235 mg/dL (83-110); HDL Cholesterol 20 mg/dL (>60 Neg Risk); LDL Cholesterol, Calculated 118 mg/dL; Potassium 4.7 mmol/L (3.5-5.1); Sodium 135 mmol/L (136-145); Triglycerides 137 mg/dL (Less than 150)
[2020-05-10] MEDS: methylPREDNISolone Sod Succ 40 MG VIAL IVP SCH ×4 (06:35→23:51)
[2020-05-10] MEDS: Insulin Regular 300 UNITS/3 ML VIAL SC PRN ×4 (06:37→21:06)
[2020-05-10] MEDS: Furosemide 20 MG TAB PO SCH (08:41)
[2020-05-10] MEDS: Apixaban 2.5 MG TAB PO SCH ×2 (08:42→21:10)
[2020-05-10] MEDS: Senokot S 8.6-50 MG TAB PO SCH ×2 (08:42→21:09)
[2020-05-10] MEDS: Aspirin Chewable 81 MG TAB PO SCH (08:42)
[2020-05-10] MEDS: Famotidine/PF 20 mg/2ml Vial SLOW IVP SCH (08:43)
[2020-05-10] MEDS: Carvedilol 6.25 MG TAB PO SCH ×2 (08:46→21:10)
[2020-05-10] MEDS: Simethicone Chewable 80 MG TAB PO PRN ×2 (12:50→21:17)
[2020-05-10 14:59] LABS: Actual Bicarbonate (HCO3a) 16.5 mEq/L (22-28); Base Excess (BEa) -8.1 mEq/L (-2.0 to +3.0); CO2 Tension 31.7 mmHg (35.0-45.0); Calcium, Ionized (arterial) 1.22 mmol/L (1.12-1.30); Carboxyhemoglobin (COHb) 0.1 gm% (0.0-3.0); Hemoglobin (Hb) 14.2 g/dL (14.0-18.0); O2 Tension (PaO2), arterial 98.3 mmHg (> 70.0); Potassium - ABG Lab 4.42 mmol/L (3.70-5.30); pH, Arterial 7.34 (7.35-7.45)
[2020-05-10 15:00] LABS: ALV-art Gradient 118.755 mmHg (0-20); Puncture Site L.R.
--- NOTE | 2020-05-10 17:16 | PRG ---
DATE OF SERVICE: 05/10/2020 SUBJECTIVE: Mr. Yousif continues to wheeze. He says he intermittently wheeze much of his adult life independent of his myocardial infarction, arguing that this is not cardiac asthma. I suspect he has chronic persistent asthma. He only smoked briefly when he was young man. His heart rate is in the 50s, respiratory rates in the 20s, and oximetry is 95. This afternoon, he said he was getting a little tired, so we placed him on BiPAP. Hopefully this will give him some muscle rest and then we can remove this in the morning. OBJECTIVE: VITAL SIGNS: Blood pressure this evening is 147/89. Intake and outputs -7 mL. LUNGS: Remarkable for faint wheezes. HEART: Regular rhythm. ABDOMEN: Soft. LABORATORY DATA: White count 8.8, hemoglobin 13.8, and platelets 244. Sodium 135, potassium 4.7, chloride 105, bicarb 17, BUN 82, creatinine 3.04. IMPRESSION AND PLAN: 1. Myocardial infarction with systolic cardiomyopathy. 2. Acute renal insufficiency on top of chronic kidney disease, appears to have stabilizing. 3. Chronic persistent asthma that is the biggest issue he is facing at this point in time. We will continue bilevel positive airway pressure, steroids, and nebulizer treatments, he will remain in the critical care unit for now. Job ID: [id number]
--- NOTE | 2020-05-10 19:03 | PDOC.HOSPP ---
- Subjective Encounter Date: 05/10/20 Encounter Time: 10:30 Subjective: Patient seen and examined for medical management. Denies any chest pain. Shortness of breath improving. No overnight events. - Objective Vital Signs & Weight: Vital Signs (12 hours) Temp Pulse Resp BP Pulse Ox 05/10/20 18:10 57 L 20 05/10/20 16:10 100 05/10/20 15:18 56 L 19 94 L 05/10/20 15:08 56 L 24 H 95 05/10/20 10:57 55 L 21 H 97 05/10/20 08:46 143/82 H 05/10/20 08:00 97.7 F 05/10/20 07:40 96 05/10/20 07:05 57 L 19 98 Weight Weight 194 lb 0.108 oz Most Recent Monitor Data Heart Rate from ECG 54 NIBP 164/91 NIBP BP-Mean 115 Respiration from ECG 18 SpO2 97 I&O: 05/09/20 05/10/20 05/11/20 06:59 06:59 06:59 Intake Total 1417 1069.9 720 Output Total 1175 1077 0 Balance 242 -7.1 720 Result Diagrams: 05/10/20 03:13 05/10/20 03:13 Additional Labs: Accuchecks 05/10/20 05/10/20 12:27 06:36 POC Glucose 247 H 244 H Abnormal Lab Results - Last 48 hrs 05/05/20 14:26: Crossmatch See Detail 05/09/20 03:06: Carbon Dioxide 21 L, BUN 77 H, Creatinine 3.16 H 05/09/20 03:06: Hemoglobin A1c 6.4 H 05/09/20 03:06: RBC 4.28 L, Hgb 13.4 L, Hct 39.4 L, MCH 31.2 H, Lymphocytes % 14.2 L, Monocytes % 12.5 H, Neutrophils # 7.0 H, Monocytes # 1.2 H 05/10/20 03:13: Sodium 135 L, Carbon Dioxide 17 L, BUN 82 H, Creatinine 3.04 H 05/10/20 03:13: RBC 4.36 L, Hgb 13.8 L, Hct 40.1 L, MCH 31.6 H, Neutrophils % 82.4 H, Lymphocytes % 11.7 L, Neutrophils # 7.3 H, Lymphocytes # 1.0 L 05/10/20 14:55: Bicarbonate Actual 16.5 L, ABG pH 7.34 L, ABG pCO2 31.7 L, ABG pO2 98.3 H, ABG Base Excess -8.1 L, A-a O2 Gradient 118.755 H, Sodium 131 L EKG Reviewed by me: Yes (Sinus rhythm on telemetry) Hospitalist ROS - Review of Systems Cardiovascular: denies: chest pain, palpitations, orthopnea, paroxysmal noc. dyspnea, edema, light headedness, other Gastrointestinal: denies: nausea, vomiting, abdominal pain, diarrhea, constipation, melena, hematochezia, other - Medication Medications: Active Medications Generic Name Dose Route Start Last Admin Trade Name Freq PRN Reason Stop Dose Admin Albuterol/Ipratropium 3 ml 05/09/20 10:30 05/10/20 18:10 Ipratropium/Albuterol Sulfate 3 Ml Neb NEB 3 ml [id number] SAUD Administration Apixaban 2.5 mg 05/08/20 09:00 05/10/20 08:42 Apixaban 2.5 Mg Tab PO 2.5 mg BID SAUD Administration Aspirin 81 mg 05/09/20 09:00 05/10/20 08:42 Aspirin Chewable 81 Mg Tab PO 81 mg DAILY SAUD Administration Carvedilol 6.25 mg 05/08/20 21:00 05/10/20 08:46 Carvedilol 6.25 Mg Tab PO 6.25 mg BID SAUD Administration Famotidine 20 mg 05/08/20 09:00 05/10/20 08:43 Famotidine/Pf 20 Mg/2ml Vial SLOW IVP 20 mg 0900 SAUD Administration Furosemide 40 mg 05/09/20 09:00 05/10/20 08:41 Furosemide 20 Mg Tab PO 40 mg QAM SAUD Administration Insulin Human Regular 0 units 05/05/20 20:15 05/10/20 18:20 Insulin Regular 300 Units/3 Ml Vial SC 3 unit .MILD SLIDING PRN Administration MILD SLIDING SCALE Protocol Methylprednisolone Sodium Succinate 20 mg 05/09/20 12:00 05/10/20 18:21 Methylprednisolone Sod Succ 40 Mg Vial IVP 20 mg Q6HR SAUD Administration Morphine Sulfate 4 mg 05/06/20 01:52 05/08/20 00:17 Morphine 4 Mg/Ml Vial SLOW IVP 4 mg Q1H PRN Administration Chest Pain Nitroglycerin 0.4 mg 05/05/20 16:15 05/06/20 23:05 Nitroglycerin 0.4 Mg Tab (25 Tab Bottle) SL 0.4 mg Q5MIN PRN Administration Chest Pain Ondansetron HCl 8 mg 05/07/20 09:10 05/08/20 11:24 Ondansetron Odt 4 Mg Tab SL 8 mg BID PRN Administration Nausea/Vomiting Senna/Docusate Sodium 1 tab 05/09/20 21:00 05/10/20 08:42 Senokot S 8.6-50 Mg Tab PO 1 tab BID SAUD Administration Simethicone 80 mg 05/07/20 01:49 05/10/20 12:50 Simethicone Chewable 80 Mg Tab PO 80 mg PCHS PRN Administration Gas Pain Sodium Chloride 10 ml 05/05/20 16:15 05/07/20 10:07 Flush - Normal Saline 10 Ml Syringe IVF 10 ml PRN PRN Administration Saline Flush Sodium Chloride 10 ml 05/05/20 21:00 05/10/20 08:44 Flush - Normal Saline 10 Ml Syringe IVF 10 ml Q12HR SAUD Administration - Exam General Appearance: NAD Neck: supple Heart: RRR, no gallops Respiratory: no wheezes, normal chest expansion Gastrointestinal: soft, non-distended Extremities: no cyanosis, no clubbing Hosp A/P - Plan HONG on CKD IV Asthma exacerbation Acute anterolateral myocardial infarction Acute systolic heart failureejection fraction 20 to 25% due to ischemic cardiomyopathy Hypertension Coronary artery disease Chronic metabolic acidosis probably due to renal insufficiency History of prostate cancer Chronic low back pain Impaired glucose tolerance Constipation Plan: Continue nebulizer treatment with steroids for asthma exacerbation. Continue carvedilol with aspirin and statins. Monitor renal function closely. Blood sugars elevated due to steroids. Change sliding scale to moderate. Add NPH while on steroids. Recent hemoglobin A1c was 6.4. DVT prophylaxis. Diabetic diet. Abllard catheter DC'd. Treat constipation
[2020-05-10] MEDS ORDERED: Bisacodyl 10 MG SUPP PR PRN (19:08)
[2020-05-10] MEDS ORDERED: NPH, Human Insulin Isophane 300 UNIT/3 ML VIAL SC SCH (19:15)
[2020-05-10] MEDS ORDERED: Polyethylene Glycol 3350 17 GM Packet PO SCH (21:00)
[2020-05-10] MEDS: Atorvastatin Calcium 40 MG TAB PO SCH (21:10)
[2020-05-11] MEDS: Insulin Regular 300 UNITS/3 ML VIAL SC PRN ×3 (02:33→13:21)
[2020-05-11] MEDS: methylPREDNISolone Sod Succ 40 MG VIAL IVP SCH ×3 (05:40→18:30)
--- NOTE | 2020-05-11 07:29 | PRG ---
DATE OF SERVICE: 05/11/2020 SUBJECTIVE: Mr. Yousif was on BiPAP all night. Says he feels much better. He thought he was very comfortable on BiPAP. We will take it off later this morning and see how he does. OBJECTIVE: LUNGS: Still remarkable for distant wheezes. HEART: Regular rhythm. ABDOMEN: Soft. EXTREMITIES: Without asymmetry. LABORATORY DATA: White count was not repeated today. Electrolytes are not repeated today. We will order lab on him this morning. IMPRESSION: 1. Chronic persistent asthma. 2. Severe coronary artery disease. 3. Severe cardiomyopathy. 4. Status post myocardial infarction. 5. Obesity with probable sleep apnea. Try to switch him to nocturnal BiPAP. He will remain in the critical care unit. Job ID: [id number]
[2020-05-11 08:31] LABS: Anion Gap 17 mmol/L (10-20); BUN (Urea Nitrogen) 83 mg/dL (8.4-25.7); Calc. Creatinine Clearance 24 mL/min (70-130); Calcium 9.3 mg/dL (7.8-10.44); Carbon Dioxide 25 mmol/L (23-31); Chloride 104 mmol/L (98-107); Glucose 184 mg/dL (83-110); Magnesium 3.1 mg/dL (1.6-2.6); Potassium 4.8 mmol/L (3.5-5.1); Sodium 141 mmol/L (136-145)
[2020-05-11] MEDS: Aspirin Chewable 81 MG TAB PO SCH (09:31)
[2020-05-11] MEDS: Milk Of Magnesia 30 ML UDCUP PO SCH (09:31)
[2020-05-11] MEDS: Carvedilol 6.25 MG TAB PO SCH ×2 (09:32→21:47)
[2020-05-11] MEDS: Apixaban 2.5 MG TAB PO SCH ×2 (09:32→21:47)
[2020-05-11] MEDS: Furosemide 20 MG TAB PO SCH (09:32)
[2020-05-11] MEDS: NPH, Human Insulin Isophane 300 UNIT/3 ML VIAL SC SCH (09:32)
[2020-05-11] MEDS: Senokot S 8.6-50 MG TAB PO SCH ×2 (09:35→21:47)
[2020-05-11] MEDS: Famotidine/PF 20 mg/2ml Vial SLOW IVP SCH (09:35)
[2020-05-11] MEDS ORDERED: Bisacodyl 10 MG SUPP PR PRN (10:22)
[2020-05-11] MEDS ORDERED: Fleet Enema 133 ML BOT PR PRN (10:22)
--- NOTE | 2020-05-11 12:27 | RAD ---
ABDOMEN 1 VIEW: Date: 05/11/2020 HISTORY: Abdominal pain. FINDINGS: There is moderate gaseous distention of the stomach. There is some scattered gas and fecal material i n the colon. No evidence for large or small bowel obstruction. Postop laminectomy changes of the mid and lower lumbar spine. Evidence for small pleural effusions and vascular congestion. IMPRESSION: 1. Some distention and dilatation of the stomach with air. Depending upon concern, follow-up NG tube placement might be of benefit. 2. No evidence for large or small bowel obstruction, overt calculus, or other acute process. 3. Minimal bibasilar pleural and parenchymal changes in the lungs. POS: RRE
[2020-05-11] MEDS ORDERED: Polyethylene Glycol 3350 17 GM Packet PO SCH (17:15)
[2020-05-11] MEDS: Atorvastatin Calcium 40 MG TAB PO SCH (21:46)
[2020-05-11] MEDS: Simethicone Chewable 80 MG TAB PO SCH ×2 (21:46→22:06)
[2020-05-11] MEDS: Polyethylene Glycol 3350 17 GM Packet PO SCH (21:48)
--- NOTE | 2020-05-11 22:11 | PDOC.HOSPP ---
- Subjective Encounter Date: 05/11/20 Encounter Time: 11:00 Subjective: Patient seen and examined for medical management. Required BiPAP last night. Ballard catheter was placed. Short of breath on minimal exertion. Complains of abdominal bloating from this morning. - Objective Vital Signs & Weight: Vital Signs (12 hours) Temp Pulse Resp BP Pulse Ox 05/11/20 21:47 136/77 05/11/20 20:00 98.5 F 05/11/20 18:38 69 18 96 05/11/20 16:00 98.9 F 05/11/20 14:12 55 L 19 98 05/11/20 12:00 97.8 F 05/11/20 10:30 96 05/11/20 10:28 64 20 96 Weight Weight 194 lb 0.108 oz Most Recent Monitor Data Heart Rate from ECG 69 NIBP 144/77 NIBP BP-Mean 99 Respiration from ECG 15 SpO2 94 I&O: 05/10/20 05/11/20 05/12/20 06:59 06:59 06:59 Intake Total 1069.9 1040 530 Output Total 1077 0 1070 Balance -7.1 1040 -540 Result Diagrams: 05/10/20 03:13 05/12/20 03:11 Additional Labs: Accuchecks 05/11/20 05/11/20 05/11/20 21:46 16:42 11:54 POC Glucose 189 H 120 H 182 H 05/11/20 05/10/20 05/09/20 02:19 17:06 20:37 POC Glucose 218 H 213 H 224 H 05/09/20 05/09/20 16:45 06:21 POC Glucose 221 H 165 H Radiology Reviewed by me: Yes ( KUB-gastric distention) EKG Reviewed by me: Yes (Melva wellington on telemetry) Hospitalist ROS - Review of Systems Respiratory: denies: cough, dry, shortness of breath, hemoptysis, SOB with excertion, pleuritic pain, sputum, wheezing, other Cardiovascular: denies: chest pain, palpitations, orthopnea, paroxysmal noc. dyspnea, edema, light headedness, other - Medication Medications: Active Medications Generic Name Dose Route Start Last Admin Trade Name Freq PRN Reason Stop Dose Admin Albuterol/Ipratropium 3 ml 05/09/20 10:30 05/11/20 18:38 Ipratropium/Albuterol Sulfate 3 Ml Neb NEB 3 ml [id number] SAUD Administration Apixaban 2.5 mg 05/08/20 09:00 05/11/20 21:47 Apixaban 2.5 Mg Tab PO 2.5 mg BID SAUD Administration Aspirin 81 mg 05/09/20 09:00 05/11/20 09:31 Aspirin Chewable 81 Mg Tab PO 81 mg DAILY SAUD Administration Atorvastatin Calcium 40 mg 05/10/20 21:00 05/11/20 21:46 Atorvastatin Calcium 40 Mg Tab PO 40 mg HS SAUD Administration Bisacodyl 10 mg 05/11/20 10:22 05/11/20 16:38 Bisacodyl 10 Mg Supp NV 10 mg DAILYPRN PRN Administration Constipation Carvedilol 6.25 mg 05/08/20 21:00 05/11/20 21:47 Carvedilol 6.25 Mg Tab PO 6.25 mg BID SAUD Administration Furosemide 40 mg 05/09/20 09:00 05/11/20 09:32 Furosemide 20 Mg Tab PO 40 mg QAM SAUD Administration Insulin Human NPH 10 unit 05/11/20 09:00 05/11/20 09:32 Nph, Human Insulin Isophane 300 Unit/3 Ml Vial SC 10 unit DAILY SAUD Administration Insulin Human Regular 0 units 05/10/20 19:04 05/11/20 13:21 Insulin Regular 300 Units/3 Ml Vial SC 2 unit .MODERATE SLIDING SC PRN Administration Moderate Correctional Scale Insulin Human Regular 0 units 05/10/20 19:04 05/11/20 02:33 Insulin Regular 300 Units/3 Ml Vial SC 2 unit .BEDTIME SLIDING SC PRN Administration Bedtime Correctional Scale Magnesium Hydroxide 30 ml 05/11/20 09:00 05/11/20 09:31 Milk Of Magnesia 30 Ml Udcup PO 05/13/20 09:01 30 ml DAILY SAUD Administration Methylprednisolone Sodium Succinate 20 mg 05/09/20 12:00 05/11/20 18:30 Methylprednisolone Sod Succ 40 Mg Vial IVP 20 mg Q6HR SAUD Administration Morphine Sulfate 4 mg 05/06/20 01:52 05/08/20 00:17 Morphine 4 Mg/Ml Vial SLOW IVP 4 mg Q1H PRN Administration Chest Pain Nitroglycerin 0.4 mg 05/05/20 16:15 05/06/20 23:05 Nitroglycerin 0.4 Mg Tab (25 Tab Bottle) SL 0.4 mg Q5MIN PRN Administration Chest Pain Ondansetron HCl 8 mg 05/07/20 09:10 05/08/20 11:24 Ondansetron Odt 4 Mg Tab SL 8 mg BID PRN Administration Nausea/Vomiting Polyethylene Glycol 17 gm 05/11/20 21:00 05/11/20 21:48 Polyethylene Glycol 3350 17 Gm Packet PO 17 gm BID SAUD Administration Senna/Docusate Sodium 2 tab 05/10/20 21:00 05/11/20 21:47 Senokot S 8.6-50 Mg Tab PO 2 tab BID SAUD Administration Simethicone 80 mg 05/07/20 01:49 05/10/20 21:17 Simethicone Chewable 80 Mg Tab PO 80 mg PCHS PRN Administration Gas Pain Simethicone 80 mg 05/11/20 19:00 05/11/20 22:06 Simethicone Chewable 80 Mg Tab PO Not Given PCHS SAUD Sodium Chloride 10 ml 05/05/20 16:15 05/07/20 10:07 Flush - Normal Saline 10 Ml Syringe IVF 10 ml PRN PRN Administration Saline Flush Sodium Chloride 10 ml 05/05/20 21:00 05/11/20 21:48 Flush - Normal Saline 10 Ml Syringe IVF 10 ml Q12HR SAUD Administration - Exam General Appearance: NAD Neck: supple, no JVD Heart: no gallops, irregular Respiratory: rhonchi, tachypneic Gastrointestinal: soft, non-tender, no rigidity Extremities: no cyanosis, no clubbing Neurological: no new deficit Hosp A/P - Plan DVT proph w/SCDs Acute hypoxic respiratory failure requiring noninvasive positive pressure ventilation HONG on CKD IV Asthma exacerbation Acute anterolateral myocardial infarction Acute systolic heart failureejection fraction 20 to 25% due to ischemic cardiomyopathy Hypertension Coronary artery disease Chronic metabolic acidosis probably due to renal insufficiency History of prostate cancer Chronic low back pain Impaired glucose tolerance Constipation Plan: KUB showed gastric distention. NG tube for gastric decompression. Continue nebulizer treatment. Continue steroids. Continue aspirin, carvedilol and statins. Continue current dose of NPH with sliding scale. Continue other medications as above Add Dulcolax suppository. Continue MiraLAX with Senokot-S
[2020-05-12] MEDS: methylPREDNISolone Sod Succ 40 MG VIAL IVP SCH ×4 (00:31→18:55)
[2020-05-12 03:48] LABS: Anion Gap 15 mmol/L (10-20); BUN (Urea Nitrogen) 80 mg/dL (8.4-25.7); Calc. Creatinine Clearance 26 mL/min (70-130); Carbon Dioxide 24 mmol/L (23-31); Chloride 105 mmol/L (98-107); Glucose 166 mg/dL (83-110); Potassium 4.6 mmol/L (3.5-5.1); Sodium 139 mmol/L (136-145)
[2020-05-12] MEDS ORDERED: Acetaminophen 325 MG TAB PO PRN (04:27)
[2020-05-12] MEDS: Insulin Regular 300 UNITS/3 ML VIAL SC PRN ×3 (05:22→17:26)
[2020-05-12] MEDS: Apixaban 2.5 MG TAB PO SCH ×2 (08:12→22:06)
[2020-05-12] MEDS: Multivit, Therapeutic 1 TAB PO SCH (08:12)
[2020-05-12] MEDS: Famotidine 20 MG TAB PO SCH (08:12)
[2020-05-12] MEDS: Simethicone Chewable 80 MG TAB PO SCH ×3 (08:13→18:56)
[2020-05-12] MEDS: Senokot S 8.6-50 MG TAB PO SCH ×2 (08:13→22:06)
[2020-05-12] MEDS: Carvedilol 6.25 MG TAB PO SCH ×2 (08:14→22:06)
[2020-05-12] MEDS: Aspirin Chewable 81 MG TAB PO SCH (08:14)
[2020-05-12] MEDS: Furosemide 20 MG TAB PO SCH (08:14)
[2020-05-12] MEDS: Cyanocobalamin (Vitamin B-12) 1,000 MCG TAB PO SCH (08:14)
[2020-05-12] MEDS: Folic Acid 1 MG TAB PO SCH (08:14)
[2020-05-12] MEDS: NPH, Human Insulin Isophane 300 UNIT/3 ML VIAL SC SCH (08:15)
[2020-05-12] MEDS: Milk Of Magnesia 30 ML UDCUP PO SCH (08:15)
[2020-05-12] MEDS: Polyethylene Glycol 3350 17 GM Packet PO SCH ×2 (08:15→22:06)
--- NOTE | 2020-05-12 14:44 | PDOC.FMACP ---
Advance Care Planning - Problem (1) Palliative care encounter Status: Acute Code(s): Z51.5 - ENCOUNTER FOR PALLIATIVE CARE (2) Acute systolic (congestive) heart failure Status: Acute Code(s): I50.21 - ACUTE SYSTOLIC (CONGESTIVE) HEART FAILURE (3) CAD (coronary artery disease) Status: Acute Code(s): I25.10 - ATHSCL HEART DISEASE OF [place] CORONARY ARTERY W/O ANG PCTRS (4) Afib Status: Chronic Code(s): I48.91 - UNSPECIFIED ATRIAL FIBRILLATION Qualifiers: Atrial fibrillation type: longstanding persistent Qualified Code(s): I48.11 - Longstanding persistent atrial fibrillation - Note Participants: patient, family, palliative care Summary: Palliative Care introduced Advanced Care Planning to patient and his son. The diagnosis, prognosis and goals of care were discussed. Appropriate forms and documentation to accomplish the goals of care were discussed. All questions were answered. Mr Yousif was understanding of disease process, continues to wish to remain with full resuscitation measures and aggressive therapies. Hopeful for transition to Rehab to gain strength, agreeable to life vest if needed. Discussed with continued disease trajectory hospice may be an option. MPOA and Directive to physician was completed. Original and copies given to the patient, copy placed on chart for medical records. Please also refer to Palliative Care notes in note section. Time Spent (mins): 15
--- NOTE | 2020-05-12 15:06 | PRG ---
DATE OF SERVICE: 05/12/2020 SUBJECTIVE: Mr. Yousif is stable. He slept with BiPAP until about 2:00 to 3:00 in the morning. He needs to wear it all night. I had a doubt that he has some degree of sleep apnea. OBJECTIVE: VITAL SIGNS: Blood pressure 139/79, heart rate 54, respiratory rate 16, oximetry is 92% to 99% today. LUNGS: Clear and distant. Still has slightly prolonged expiratory phase. HEART: Regular rhythm. ABDOMEN: Soft. EXTREMITIES: Unchanged. LABORATORY DATA: White count 8.8 two days ago. Sodium 139, potassium 4.6, chloride 105, bicarb 24, BUN 80, creatinine 2.85. His creatinine was 3.07 yesterday. IMPRESSION: 1. Chronic persistent asthma. 2. Myocardial infarction. 3. Systolic congestive heart failure. 4. Acute on chronic kidney disease. 5. Diabetes. 6. Obesity and deconditioning. PLAN: I am not sure he will ever be a candidate for surgery. With regard to BiPAP, initially this was used for respiratory muscle support, but now he needs it just for sleep apnea at bedtime. We will continue to follow. Job ID: [id number]
--- NOTE | 2020-05-12 20:00 | PDOC.HOSPP ---
- Subjective Encounter Date: 05/12/20 Encounter Time: 12:30 Subjective: Patient seen and examined for medical management. Shortness of breath improving. Denies any chest pain or Palpitations. Required BiPAP last night - Objective Vital Signs & Weight: Vital Signs (12 hours) Temp Pulse Resp BP Pulse Ox 05/12/20 18:43 58 L 21 H 95 05/12/20 18:00 97.4 F L 05/12/20 16:00 97.4 F L 05/12/20 15:05 56 L 21 H 95 05/12/20 11:11 60 17 97 05/12/20 08:14 125/73 Weight Weight 194 lb 0.108 oz Most Recent Monitor Data Heart Rate from ECG 54 NIBP 137/74 NIBP BP-Mean 95 Respiration from ECG 21 SpO2 95 I&O: 05/11/20 05/12/20 05/13/20 06:59 06:59 06:59 Intake Total 6023 886 2225 Output Total 0 1755 710 Balance 1040 -775 290 Result Diagrams: 05/10/20 03:13 05/13/20 03:26 Additional Labs: Accuchecks 05/12/20 05/12/20 05/12/20 11:33 05:21 02:16 POC Glucose 174 H 178 H 157 H 05/11/20 21:46 POC Glucose 189 H EKG Reviewed by me: Yes (Atrial fibrillation on telemetry) Hospitalist ROS - Review of Systems Cardiovascular: denies: chest pain, palpitations, orthopnea, paroxysmal noc. dyspnea, edema, light headedness, other Gastrointestinal: denies: nausea, vomiting, abdominal pain, diarrhea, constipation, melena, hematochezia, other - Medication Medications: Active Medications Generic Name Dose Route Start Last Admin Trade Name Freq PRN Reason Stop Dose Admin Acetaminophen 650 mg 05/12/20 04:27 05/12/20 04:34 Acetaminophen 325 Mg Tab PO 650 mg Q6H PRN Administration Fever/Mild Pain Albuterol/Ipratropium 3 ml 05/09/20 10:30 05/12/20 18:43 Ipratropium/Albuterol Sulfate 3 Ml Neb NEB 3 ml [id number] SAUD Administration Apixaban 2.5 mg 05/08/20 09:00 05/12/20 08:12 Apixaban 2.5 Mg Tab PO 2.5 mg BID SAUD Administration Aspirin 81 mg 05/09/20 09:00 05/12/20 08:14 Aspirin Chewable 81 Mg Tab PO 81 mg DAILY SAUD Administration Atorvastatin Calcium 40 mg 05/10/20 21:00 05/11/20 21:46 Atorvastatin Calcium 40 Mg Tab PO 40 mg HS SAUD Administration Bisacodyl 10 mg 05/11/20 10:22 05/11/20 16:38 Bisacodyl 10 Mg Supp PA 10 mg DAILYPRN PRN Administration Constipation Carvedilol 6.25 mg 05/08/20 21:00 05/12/20 08:14 Carvedilol 6.25 Mg Tab PO 6.25 mg BID SAUD Administration Cyanocobalamin 1,000 mcg 05/12/20 09:00 05/12/20 08:14 Cyanocobalamin (Vitamin B-12) 1,000 Mcg Tab PO 1,000 mcg DAILY SAUD Administration Famotidine 20 mg 05/12/20 09:00 05/12/20 08:12 Famotidine 20 Mg Tab PO 20 mg 0900 SAUD Administration Folic Acid 1 mg 05/12/20 09:00 05/12/20 08:14 Folic Acid 1 Mg Tab PO 1 mg DAILY SAUD Administration Furosemide 40 mg 05/09/20 09:00 05/12/20 08:14 Furosemide 20 Mg Tab PO 40 mg QAM SAUD Administration Insulin Human NPH 10 unit 05/11/20 09:00 05/12/20 08:15 Nph, Human Insulin Isophane 300 Unit/3 Ml Vial SC 10 unit DAILY SAUD Administration Insulin Human Regular 0 units 05/10/20 19:04 05/12/20 17:26 Insulin Regular 300 Units/3 Ml Vial SC 2 unit .MODERATE SLIDING SC PRN Administration Moderate Correctional Scale Insulin Human Regular 0 units 05/10/20 19:04 05/11/20 02:33 Insulin Regular 300 Units/3 Ml Vial SC 2 unit .BEDTIME SLIDING SC PRN Administration Bedtime Correctional Scale Magnesium Hydroxide 30 ml 05/11/20 09:00 05/12/20 08:15 Milk Of Magnesia 30 Ml Udcup PO 05/13/20 09:01 30 ml DAILY SAUD Administration Methylprednisolone Sodium Succinate 20 mg 05/09/20 12:00 05/12/20 18:55 Methylprednisolone Sod Succ 40 Mg Vial IVP 20 mg Q6HR SAUD Administration Morphine Sulfate 4 mg 05/06/20 01:52 05/08/20 00:17 Morphine 4 Mg/Ml Vial SLOW IVP 4 mg Q1H PRN Administration Chest Pain Multivitamins 1 tab 05/12/20 09:00 05/12/20 08:12 Multivit, Therapeutic 1 Tab PO 1 tab DAILY SAUD Administration Nitroglycerin 0.4 mg 05/05/20 16:15 05/06/20 23:05 Nitroglycerin 0.4 Mg Tab (25 Tab Bottle) SL 0.4 mg Q5MIN PRN Administration Chest Pain Ondansetron HCl 8 mg 05/07/20 09:10 05/08/20 11:24 Ondansetron Odt 4 Mg Tab SL 8 mg BID PRN Administration Nausea/Vomiting Polyethylene Glycol 17 gm 05/11/20 21:00 05/12/20 08:15 Polyethylene Glycol 3350 17 Gm Packet PO 17 gm BID SAUD Administration Senna/Docusate Sodium 2 tab 05/10/20 21:00 05/12/20 08:13 Senokot S 8.6-50 Mg Tab PO 2 tab BID SAUD Administration Simethicone 80 mg 05/07/20 01:49 05/10/20 21:17 Simethicone Chewable 80 Mg Tab PO 80 mg PCHS PRN Administration Gas Pain Simethicone 80 mg 05/11/20 19:00 05/12/20 18:56 Simethicone Chewable 80 Mg Tab PO 80 mg PCHS SAUD Administration Sodium Chloride 10 ml 05/05/20 16:15 05/07/20 10:07 Flush - Normal Saline 10 Ml Syringe IVF 10 ml PRN PRN Administration Saline Flush Sodium Chloride 10 ml 05/05/20 21:00 05/12/20 08:16 Flush - Normal Saline 10 Ml Syringe IVF 10 ml Q12HR SAUD Administration - Exam General Appearance: NAD Neck: supple, no JVD Heart: no gallops, irregular Respiratory: no wheezes, normal chest expansion Gastrointestinal: soft, non-tender, normal bowel sounds Extremities: no cyanosis Psychiatric: A&O x 3 Hosp A/P - Plan DVT proph w/SCDs Acute hypoxic respiratory failure requiring noninvasive positive pressure ventilation 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 Continue aspirin, statins, beta-blockers, Lasix and anticoagulation. On IV steroids. Continue current dose of NPH. Reduce MiraLAX to once a day. AM labs.
[2020-05-12] MEDS: Atorvastatin Calcium 40 MG TAB PO SCH (22:06)
[2020-05-13] MEDS: Simethicone Chewable 80 MG TAB PO SCH ×4 (00:33→19:51)
[2020-05-13] MEDS: methylPREDNISolone Sod Succ 40 MG VIAL IVP SCH ×3 (00:33→12:37)
[2020-05-13 04:14] LABS: Anion Gap 15 mmol/L (10-20); BUN (Urea Nitrogen) 80 mg/dL (8.4-25.7); Calc. Creatinine Clearance 28 mL/min (70-130); Calcium 9.1 mg/dL (7.8-10.44); Carbon Dioxide 25 mmol/L (23-31); Chloride 103 mmol/L (98-107); Glucose 176 mg/dL (83-110); Potassium 4.9 mmol/L (3.5-5.1); Sodium 138 mmol/L (136-145)
[2020-05-13] MEDS: Insulin Regular 300 UNITS/3 ML VIAL SC PRN ×3 (06:17→17:41)
[2020-05-13] MEDS: Apixaban 2.5 MG TAB PO SCH ×2 (08:36→20:00)
[2020-05-13] MEDS: Famotidine 20 MG TAB PO SCH (08:37)
[2020-05-13] MEDS: Folic Acid 1 MG TAB PO SCH (08:37)
[2020-05-13] MEDS: Cyanocobalamin (Vitamin B-12) 1,000 MCG TAB PO SCH (08:37)
[2020-05-13] MEDS: Aspirin Chewable 81 MG TAB PO SCH (08:37)
[2020-05-13] MEDS: Carvedilol 6.25 MG TAB PO SCH ×2 (08:37→20:01)
[2020-05-13] MEDS: Furosemide 20 MG TAB PO SCH (08:37)
[2020-05-13] MEDS: Milk Of Magnesia 30 ML UDCUP PO SCH (08:38)
[2020-05-13] MEDS: Multivit, Therapeutic 1 TAB PO SCH (08:38)
[2020-05-13] MEDS: NPH, Human Insulin Isophane 300 UNIT/3 ML VIAL SC SCH (08:39)
[2020-05-13] MEDS: Senokot S 8.6-50 MG TAB PO SCH ×2 (08:39→20:00)
[2020-05-13] MEDS: Polyethylene Glycol 3350 17 GM Packet PO SCH (08:39)
--- NOTE | 2020-05-13 16:44 | PRG ---
DATE OF SERVICE: 05/13/2020 SUBJECTIVE: Mr. Yousif has had no new problems reported. OBJECTIVE: VITAL SIGNS: He is afebrile. Heart rates in the 50s, respiratory rates in the teens, blood pressure 130/69. LUNGS: Remarkable for distant breath sounds. HEART: Regular rhythm. ABDOMEN: Soft. LABORATORY DATA: BUN is 80, creatinine 2.84, which is essentially the same as yesterday. IMPRESSION: 1. Chronic persistent asthma. 2. Myocardial infarction. 3. Systolic cardiomyopathy with congestive heart failure. 4. Acute on chronic kidney disease. 5. Diabetes. 6. Obesity. 7. Probable sleep apnea. PLAN: He needs to continue with nebulizer treatments. He needs to continue to sleep with BiPAP. He can be switched to prednisone. He is stable to move out of the critical care unit. Job ID: [id number]
--- NOTE | 2020-05-13 19:49 | PDOC.HOSPP ---
- Subjective Encounter Date: 05/13/20 Encounter Time: 08:30 Subjective: Patient seen and examined for medical management. Shortness of breath improving. Denies any chest pain. Sitting on the chair. - Objective Vital Signs & Weight: Vital Signs (12 hours) Temp Pulse Pulse Pulse Resp BP BP 05/13/20 19:31 05/13/20 19:22 98.1 F 64 20 05/13/20 15:32 98.2 F 62 20 05/13/20 14:28 52 L 16 05/13/20 12:00 97.9 F 05/13/20 10:39 63 20 05/13/20 09:15 64 64 137/66 05/13/20 08:38 65 60 134/84 05/13/20 08:37 134/84 05/13/20 08:00 97.7 F BP BP Pulse Ox Pulse Ox Pulse Ox 05/13/20 19:31 96 05/13/20 19:22 165/86 H 100 05/13/20 15:32 129/76 99 05/13/20 14:28 05/13/20 12:00 05/13/20 10:39 96 05/13/20 09:15 147/77 H 94 L 99 05/13/20 08:38 115/61 92 L 91 L 05/13/20 08:37 05/13/20 08:00 96 Weight Weight 207 lb 7.28 oz Most Recent Monitor Data Heart Rate from ECG 55 NIBP 134/69 NIBP BP-Mean 90 Respiration from ECG 17 SpO2 97 I&O: 05/12/20 05/13/20 05/14/20 06:59 06:59 06:59 Intake Total 980 1000 1240 Output Total 1755 1530 930 Balance -775 -530 310 Result Diagrams: 05/10/20 03:13 05/13/20 03:26 Additional Labs: Accuchecks 05/13/20 05/13/20 05/13/20 17:14 11:43 06:15 POC Glucose 174 H 246 H 195 H 05/12/20 22:03 POC Glucose 199 H EKG Reviewed by me: Yes (Sinus rhythm on telemetry) Hospitalist ROS - Review of Systems Cardiovascular: denies: chest pain, palpitations, orthopnea, paroxysmal noc. dyspnea, edema, light headedness, other Gastrointestinal: denies: nausea, vomiting, abdominal pain, diarrhea, constipation, melena, hematochezia, other - Medication Medications: Active Medications Generic Name Dose Route Start Last Admin Trade Name Freq PRN Reason Stop Dose Admin Acetaminophen 650 mg 05/12/20 04:27 05/12/20 04:34 Acetaminophen 325 Mg Tab PO 650 mg Q6H PRN Administration Fever/Mild Pain Albuterol/Ipratropium 3 ml 05/09/20 10:30 05/13/20 19:31 Ipratropium/Albuterol Sulfate 3 Ml Neb NEB 3 ml [id number] SAUD Administration Apixaban 2.5 mg 05/08/20 09:00 05/13/20 08:36 Apixaban 2.5 Mg Tab PO 2.5 mg BID SAUD Administration Aspirin 81 mg 05/09/20 09:00 05/13/20 08:37 Aspirin Chewable 81 Mg Tab PO 81 mg DAILY SAUD Administration Atorvastatin Calcium 40 mg 05/10/20 21:00 05/12/20 22:06 Atorvastatin Calcium 40 Mg Tab PO 40 mg HS SAUD Administration Bisacodyl 10 mg 05/11/20 10:22 05/11/20 16:38 Bisacodyl 10 Mg Supp DC 10 mg DAILYPRN PRN Administration Constipation Carvedilol 6.25 mg 05/08/20 21:00 05/13/20 08:37 Carvedilol 6.25 Mg Tab PO 6.25 mg BID SAUD Administration Cyanocobalamin 1,000 mcg 05/12/20 09:00 05/13/20 08:37 Cyanocobalamin (Vitamin B-12) 1,000 Mcg Tab PO 1,000 mcg DAILY SAUD Administration Famotidine 20 mg 05/12/20 09:00 05/13/20 08:37 Famotidine 20 Mg Tab PO 20 mg 0900 SAUD Administration Folic Acid 1 mg 05/12/20 09:00 05/13/20 08:37 Folic Acid 1 Mg Tab PO 1 mg DAILY SAUD Administration Furosemide 40 mg 05/09/20 09:00 05/13/20 08:37 Furosemide 20 Mg Tab PO 40 mg QAM SAUD Administration Insulin Human NPH 10 unit 05/11/20 09:00 05/13/20 08:39 Nph, Human Insulin Isophane 300 Unit/3 Ml Vial SC 10 unit DAILY SAUD Administration Insulin Human Regular 0 units 05/10/20 19:04 05/13/20 17:41 Insulin Regular 300 Units/3 Ml Vial SC 2 unit .MODERATE SLIDING SC PRN Administration Moderate Correctional Scale Insulin Human Regular 0 units 05/10/20 19:04 05/11/20 02:33 Insulin Regular 300 Units/3 Ml Vial SC 2 unit .BEDTIME SLIDING SC PRN Administration Bedtime Correctional Scale Morphine Sulfate 4 mg 05/06/20 01:52 05/08/20 00:17 Morphine 4 Mg/Ml Vial SLOW IVP 4 mg Q1H PRN Administration Chest Pain Multivitamins 1 tab 05/12/20 09:00 05/13/20 08:38 Multivit, Therapeutic 1 Tab PO 1 tab DAILY SAUD Administration Nitroglycerin 0.4 mg 05/05/20 16:15 05/06/20 23:05 Nitroglycerin 0.4 Mg Tab (25 Tab Bottle) SL 0.4 mg Q5MIN PRN Administration Chest Pain Ondansetron HCl 8 mg 05/07/20 09:10 05/08/20 11:24 Ondansetron Odt 4 Mg Tab SL 8 mg BID PRN Administration Nausea/Vomiting Polyethylene Glycol 17 gm 05/13/20 09:00 05/13/20 08:39 Polyethylene Glycol 3350 17 Gm Packet PO Not Given DAILY SAUD Senna/Docusate Sodium 1 tab 05/13/20 06:04 05/13/20 08:39 Senokot S 8.6-50 Mg Tab PO Not Given BID SAUD Simethicone 80 mg 05/07/20 01:49 05/10/20 21:17 Simethicone Chewable 80 Mg Tab PO 80 mg PCHS PRN Administration Gas Pain Sodium Chloride 10 ml 05/05/20 16:15 05/07/20 10:07 Flush - Normal Saline 10 Ml Syringe IVF 10 ml PRN PRN Administration Saline Flush Sodium Chloride 10 ml 05/05/20 21:00 05/13/20 08:40 Flush - Normal Saline 10 Ml Syringe IVF 10 ml Q12HR SAUD Administration - Exam General Appearance: NAD Heart: RRR, no gallops Respiratory: no wheezes, no rales Gastrointestinal: soft, non-distended, normal bowel sounds Extremities: no cyanosis, no clubbing Neurological: no new deficit Hosp A/P - Plan Acute hypoxic respiratory failure requiring noninvasive positive pressure ventilation 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 Obstructive sleep apnea Plan: Steroids changed to oral. Continue antiplatelet agent. Continue statins, beta- blockers with Lasix. Increase NPH to 15 units daily. Continue sliding scale. A.m. labs ordered. Continue fluid restriction. Transfer to telemetry.
[2020-05-13] MEDS: Atorvastatin Calcium 40 MG TAB PO SCH (20:01)
[2020-05-14 04:46] LABS: #Eosinphils 0.1 thou/uL (0.0-0.7); #Lymphocytes 1.1 thou/uL (1.20-3.40); #Monocytes 1.2 thou/uL (0.11-0.59); #Neutrophils 10.1 thou/uL (1.40-6.50); %Lymphocytes 8.7 % (21.0-51.0); %Monocytes 9.8 % (0.0-10.0); %Neutrophils 80.4 % (42.0-75.0); Mean Corpuscular HGB CONC 31.9 g/dL (32.0-36.0); Mean Corpuscular Hemoglobin 30.3 pg (27.0-31.0); Mean Corpuscular Volume 95.2 fL (78.0-98.0); Mean Platelet Volume 9.2 fL (7.4-10.4); Platelet Count 277 thou/uL (130-400); RBC Distribution Width 11.9 % (11.5-14.5); Red Blood Cell (RBC) Count 4.94 mill/uL (4.70-6.10); White Blood Cell (WBC) Count 12.6 thou/uL (4.8-10.8)
[2020-05-14 04:59] LABS: Anion Gap 17 mmol/L (10-20); BUN (Urea Nitrogen) 76 mg/dL (8.4-25.7); Calc. Creatinine Clearance 29 mL/min (70-130); Calcium 9.1 mg/dL (7.8-10.44); Carbon Dioxide 22 mmol/L (23-31); Chloride 104 mmol/L (98-107); Glucose 134 mg/dL (83-110); Potassium 4.4 mmol/L (3.5-5.1); Sodium 139 mmol/L (136-145)
[2020-05-14] MEDS: Famotidine 20 MG TAB PO SCH (09:01)
[2020-05-14] MEDS: Folic Acid 1 MG TAB PO SCH (09:01)
[2020-05-14] MEDS: Carvedilol 6.25 MG TAB PO SCH ×2 (09:01→20:37)
[2020-05-14] MEDS: Furosemide 20 MG TAB PO SCH (09:01)
[2020-05-14] MEDS: predniSONE 20 MG TAB PO SCH (09:01)
[2020-05-14] MEDS: Multivit, Therapeutic 1 TAB PO SCH (09:01)
[2020-05-14] MEDS: Aspirin Chewable 81 MG TAB PO SCH (09:03)
[2020-05-14] MEDS: Polyethylene Glycol 3350 17 GM Packet PO SCH (09:03)
[2020-05-14] MEDS: Apixaban 2.5 MG TAB PO SCH ×2 (09:03→20:36)
[2020-05-14] MEDS: Senokot S 8.6-50 MG TAB PO SCH ×2 (09:03→20:37)
[2020-05-14] MEDS: Cyanocobalamin (Vitamin B-12) 1,000 MCG TAB PO SCH (09:03)
[2020-05-14] MEDS: NPH, Human Insulin Isophane 300 UNIT/3 ML VIAL SC SCH (09:05)
[2020-05-14] MEDS: Insulin Regular 300 UNITS/3 ML VIAL SC PRN ×2 (13:19→17:58)
--- NOTE | 2020-05-14 14:31 | PDOC.HOSPP ---
- Subjective Encounter Date: 05/14/20 Encounter Time: 09:30 Subjective: Patient seen and examined for medical management. Denies any chest pain or palpitations. Shortness of breath improving. Tolerating BiPAP nightly. No nausea, vomiting or abdominal pain. - Objective Vital Signs & Weight: Vital Signs (12 hours) Temp Pulse Pulse Pulse Resp BP BP 05/14/20 12:15 97.7 F 75 16 05/14/20 11:01 60 16 05/14/20 10:00 58 L 55 L 130/64 05/14/20 09:01 160/80 H 05/14/20 07:55 98.6 F 74 16 05/14/20 07:04 69 16 05/14/20 03:56 97.9 F 50 L 15 05/14/20 03:02 BP BP Pulse Ox 05/14/20 12:15 130/65 95 05/14/20 11:01 05/14/20 10:00 142/77 H 05/14/20 09:01 05/14/20 07:55 143/69 H 98 05/14/20 07:04 05/14/20 03:56 164/76 H 99 05/14/20 03:02 96 Weight Weight 214 lb 3.2 oz Most Recent Monitor Data Heart Rate from ECG 55 NIBP 134/69 NIBP BP-Mean 90 Respiration from ECG 17 SpO2 97 I&O: 05/13/20 05/14/20 05/15/20 06:59 06:59 06:59 Intake Total 1000 1720 Output Total 1530 2180 Balance -530 -460 Result Diagrams: 05/14/20 04:10 05/14/20 04:10 Additional Labs: Accuchecks 05/14/20 05/14/20 05/14/20 10:37 06:09 02:05 POC Glucose 172 H 137 H 147 H 05/13/20 05/13/20 20:20 17:14 POC Glucose 153 H 174 H Abnormal Lab Results - Last 48 hrs 05/13/20 03:26: BUN 80 H, Creatinine 2.84 H 05/14/20 04:10: WBC 12.6 H, MCHC 31.9 L, Neutrophils % 80.4 H, Lymphocytes % 8.7 L, Neutrophils # 10.1 H, Lymphocytes # 1.1 L, Monocytes # 1.2 H 05/14/20 04:10: Carbon Dioxide 22 L, BUN 76 H, Creatinine 2.79 H EKG Reviewed by me: Yes (Melva wellington on telemetry) Hospitalist ROS - Review of Systems Constitutional: denies: fever, chills, sweats, weakness, malaise, other Gastrointestinal: denies: nausea, vomiting, abdominal pain, diarrhea, constipation, melena, hematochezia, other - Medication Medications: Active Medications Generic Name Dose Route Start Last Admin Trade Name Freq PRN Reason Stop Dose Admin Acetaminophen 650 mg 05/12/20 04:27 05/12/20 04:34 Acetaminophen 325 Mg Tab PO 650 mg Q6H PRN Administration Fever/Mild Pain Albuterol/Ipratropium 3 ml 05/09/20 10:30 05/14/20 11:01 Ipratropium/Albuterol Sulfate 3 Ml Neb NEB 3 ml [id number] SAUD Administration Apixaban 2.5 mg 05/08/20 09:00 05/14/20 09:03 Apixaban 2.5 Mg Tab PO 2.5 mg BID SAUD Administration Aspirin 81 mg 05/09/20 09:00 05/14/20 09:03 Aspirin Chewable 81 Mg Tab PO 81 mg DAILY SAUD Administration Atorvastatin Calcium 40 mg 05/10/20 21:00 05/13/20 20:01 Atorvastatin Calcium 40 Mg Tab PO 40 mg HS SAUD Administration Bisacodyl 10 mg 05/11/20 10:22 05/11/20 16:38 Bisacodyl 10 Mg Supp [place] 10 mg DAILYPRN PRN Administration Constipation Carvedilol 6.25 mg 05/08/20 21:00 05/14/20 09:01 Carvedilol 6.25 Mg Tab PO 6.25 mg BID SAUD Administration Cyanocobalamin 1,000 mcg 05/12/20 09:00 05/14/20 09:03 Cyanocobalamin (Vitamin B-12) 1,000 Mcg Tab PO 1,000 mcg DAILY SAUD Administration Famotidine 20 mg 05/12/20 09:00 05/14/20 09:01 Famotidine 20 Mg Tab PO 20 mg 0900 SAUD Administration Folic Acid 1 mg 05/12/20 09:00 05/14/20 09:01 Folic Acid 1 Mg Tab PO 1 mg DAILY SAUD Administration Furosemide 40 mg 05/09/20 09:00 05/14/20 09:01 Furosemide 20 Mg Tab PO 40 mg QAM SAUD Administration Insulin Human NPH 15 unit 05/14/20 09:00 05/14/20 09:05 Nph, Human Insulin Isophane 300 Unit/3 Ml Vial SC 15 units DAILY SAUD Administration Insulin Human Regular 0 units 05/10/20 19:04 05/14/20 13:19 Insulin Regular 300 Units/3 Ml Vial SC 2 unit .MODERATE SLIDING SC PRN Administration Moderate Correctional Scale Insulin Human Regular 0 units 05/10/20 19:04 05/11/20 02:33 Insulin Regular 300 Units/3 Ml Vial SC 2 unit .BEDTIME SLIDING SC PRN Administration Bedtime Correctional Scale Morphine Sulfate 4 mg 05/06/20 01:52 05/08/20 00:17 Morphine 4 Mg/Ml Vial SLOW IVP 4 mg Q1H PRN Administration Chest Pain Multivitamins 1 tab 05/12/20 09:00 05/14/20 09:01 Multivit, Therapeutic 1 Tab PO 1 tab DAILY SAUD Administration Nitroglycerin 0.4 mg 05/05/20 16:15 05/06/20 23:05 Nitroglycerin 0.4 Mg Tab (25 Tab Bottle) SL 0.4 mg Q5MIN PRN Administration Chest Pain Ondansetron HCl 8 mg 05/07/20 09:10 05/08/20 11:24 Ondansetron Odt 4 Mg Tab SL 8 mg BID PRN Administration Nausea/Vomiting Polyethylene Glycol 17 gm 05/13/20 09:00 05/14/20 09:03 Polyethylene Glycol 3350 17 Gm Packet PO Not Given DAILY SAUD Prednisone 40 mg 05/14/20 08:00 05/14/20 09:01 Prednisone 20 Mg Tab PO 40 mg QAM-WM SAUD Administration Senna/Docusate Sodium 1 tab 05/13/20 06:04 05/14/20 09:03 Senokot S 8.6-50 Mg Tab PO 1 tab BID SAUD Administration Simethicone 80 mg 05/07/20 01:49 05/10/20 21:17 Simethicone Chewable 80 Mg Tab PO 80 mg PCHS PRN Administration Gas Pain Sodium Chloride 10 ml 05/05/20 16:15 05/07/20 10:07 Flush - Normal Saline 10 Ml Syringe IVF 10 ml PRN PRN Administration Saline Flush Sodium Chloride 10 ml 05/05/20 21:00 05/14/20 09:10 Flush - Normal Saline 10 Ml Syringe IVF 10 ml Q12HR SAUD Administration - Exam General Appearance: NAD Heart: no gallops, irregular Respiratory: no wheezes, no rales, rhonchi Gastrointestinal: soft, non-tender, normal bowel sounds Extremities: no cyanosis, no clubbing, 1+ LE edema Hosp A/P - Plan Acute hypoxic respiratory failure requiring noninvasive positive pressure ventilation 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 Obstructive sleep apnea Plan: Continue supportive care. DC Ballard in a.m. Renal function gradually improving. Continue sliding scale. Continue current dose of NPH. Continue Lasix. Co ntinue carvedilol, aspirin with Lipitor. Solu-Medrol transition to prednisone. Discontinue Ballard catheter in a.m. Continue BiPAP nightly. Continue fluid restriction. Nebulizer treatment as needed and every 4 hourly scheduled.
[2020-05-14 14:58] VITALS: BMI 31.6
[2020-05-14 16:50] LABS: Bacteria/HPF 4+ HPF (None Seen); Bilirubin Negative (Negative); Blood, Urine 3+ (Negative); Clarity Turbid (Clear); Glucose, Urine (Dipstick) Normal (Negative); Ketone, Urine Negative (Negative); Leukocyte 500 Leu/uL (Negative); Nitrite Negative (Negative); Protein, Urine (Dipstick) 10 mg/dL (Neg-Trace); RBC/HPF 21-50 HPF (0-3); Specific Gravity, Urine 1.014 (1.002-1.036); Squamous Epithelial 0-3 HPF (0-3); Urobilinogen Normal mg/dL (Less than 2); WBC/HPF Greater than 50 HPF (0-3)
[2020-05-14 17:14] LABS: Urine Culture Reflex Yes Yes
[2020-05-14] MEDS ORDERED: cefTRIAXone\\ROCEPHIN 1 GM in Sodium Chloride 0.9% 100 ML IVPB SCH (18:00)
--- NOTE | 2020-05-14 19:11 | PRG ---
DATE OF SERVICE: 05/14/2020 SUBJECTIVE: Mr. Yousif has no complaints. He is no longer wheezing. He wore BiPAP last night. OBJECTIVE: VITAL SIGNS: He is afebrile. Heart rate is in the 50s, respiratory rate in the , oximetry is 95% on room air, blood pressure 130/64. LUNGS: Clear. HEART: Regular rate and rhythm. ABDOMEN: Soft. IMPRESSION: 1. Chronic persistent asthma, clinically improved after requirement of a noninvasive ventilation. 2. Congestive heart failure. 3. Myocardial infarction. Between his deconditioning, his obesity, his chronic persistent asthma and his severe cardiomyopathy, I doubt he will ever be a candidate for surgery. I suspect he still has some pulmonary edema in his lung bases that is mild. He is doing well on room air. He is 100% better than he was 5 days ago. Job ID: [id number]
[2020-05-14] MEDS: Atorvastatin Calcium 40 MG TAB PO SCH (20:36)
[2020-05-15 04:08] LABS: #Eosinphils 0.1 thou/uL (0.0-0.7); #Lymphocytes 1.8 thou/uL (1.20-3.40); #Monocytes 1.3 thou/uL (0.11-0.59); #Neutrophils 10.8 thou/uL (1.40-6.50); %Eosinophils 0.8 % (0.0-10.0); %Lymphocytes 12.9 % (21.0-51.0); %Monocytes 9.4 % (0.0-10.0); %Neutrophils 76.9 % (42.0-75.0); Mean Corpuscular HGB CONC 33.3 g/dL (32.0-36.0); Mean Corpuscular Hemoglobin 30.9 pg (27.0-31.0); Mean Corpuscular Volume 92.7 fL (78.0-98.0); Mean Platelet Volume 9.1 fL (7.4-10.4); Platelet Count 239 thou/uL (130-400); RBC Distribution Width 11.7 % (11.5-14.5); Red Blood Cell (RBC) Count 4.54 mill/uL (4.70-6.10); White Blood Cell (WBC) Count 14.1 thou/uL (4.8-10.8)
[2020-05-15 04:29] LABS: Anion Gap 16 mmol/L (10-20); BUN (Urea Nitrogen) 70 mg/dL (8.4-25.7); Calc. Creatinine Clearance 35 mL/min (70-130); Calcium 8.6 mg/dL (7.8-10.44); Carbon Dioxide 21 mmol/L (23-31); Chloride 104 mmol/L (98-107); Glucose 114 mg/dL (83-110); Magnesium 2.5 mg/dL (1.6-2.6); Potassium 4.3 mmol/L (3.5-5.1); Sodium 137 mmol/L (136-145)
[2020-05-15] MEDS: Aspirin Chewable 81 MG TAB PO SCH (08:56)
[2020-05-15] MEDS: predniSONE 20 MG TAB PO SCH (08:56)
[2020-05-15] MEDS: Senokot S 8.6-50 MG TAB PO SCH ×2 (08:56→20:55)
[2020-05-15] MEDS: Multivit, Therapeutic 1 TAB PO SCH (08:57)
[2020-05-15] MEDS: Furosemide 20 MG TAB PO SCH (08:57)
[2020-05-15] MEDS: Cyanocobalamin (Vitamin B-12) 1,000 MCG TAB PO SCH (08:57)
[2020-05-15] MEDS: Carvedilol 6.25 MG TAB PO SCH ×2 (08:58→20:51)
[2020-05-15] MEDS: Famotidine 20 MG TAB PO SCH (08:58)
[2020-05-15] MEDS: Apixaban 2.5 MG TAB PO SCH ×2 (08:58→20:51)
[2020-05-15] MEDS: Folic Acid 1 MG TAB PO SCH (09:00)
[2020-05-15] MEDS: NPH, Human Insulin Isophane 300 UNIT/3 ML VIAL SC SCH (09:04)
[2020-05-15] MEDS: Polyethylene Glycol 3350 17 GM Packet PO SCH (09:04)
[2020-05-15] MEDS: Insulin Regular 300 UNITS/3 ML VIAL SC PRN (11:41)
--- NOTE | 2020-05-15 12:51 | PDOC.HOSPP ---
- Subjective Encounter Date: 05/15/20 Encounter Time: 07:00 Subjective: Patient seen and examined for medical management. Denies any chest pain or shortness of breath at rest. No fever or chills. Overall symptomatically feels better. - Objective Vital Signs & Weight: Vital Signs (12 hours) Temp Pulse Resp BP BP Pulse Ox 05/15/20 11:25 97.5 F L 78 18 116/58 L 97 05/15/20 09:58 78 17 05/15/20 08:58 141/80 H 05/15/20 07:07 69 20 05/15/20 06:55 97.7 F 80 16 141/70 H 95 05/15/20 04:00 98.3 F 50 L 15 140/67 98 Weight Admit Weight 194 lb Weight 213 lb 1.6 oz Most Recent Monitor Data Heart Rate from ECG 55 NIBP 134/69 NIBP BP-Mean 90 Respiration from ECG 17 SpO2 97 I&O: 05/14/20 05/15/20 05/16/20 06:59 06:59 06:59 Intake Total 1720 1780 Output Total 2180 3850 Balance -460 -2069 Result Diagrams: 05/15/20 03:45 05/15/20 03:45 Additional Labs: Accuchecks 05/15/20 05/15/20 05/15/20 11:10 06:02 02:26 POC Glucose 205 H 142 H 112 H 05/14/20 05/14/20 05/12/20 20:04 16:40 16:14 POC Glucose 181 H 268 H 189 H Abnormal Lab Results - Last 48 hrs 05/14/20 04:10: WBC 12.6 H, MCHC 31.9 L, Neutrophils % 80.4 H, Lymphocytes % 8.7 L, Neutrophils # 10.1 H, Lymphocytes # 1.1 L, Monocytes # 1.2 H 05/14/20 04:10: Carbon Dioxide 22 L, BUN 76 H, Creatinine 2.79 H 05/14/20 16:17: Urine Clarity Turbid A, Urine Blood 3+ A, Ur Leukocyte Esterase 500 A, Urine RBC 21-50 A, Urine WBC Greater than 50 A, Urine Bacteria 4+ A, Urine Culture Reflexed Yes A 05/15/20 03:45: WBC 14.1 H, RBC 4.54 L, Neutrophils % 76.9 H, Lymphocytes % 12.9 L, Neutrophils # 10.8 H, Monocytes # 1.3 H 05/15/20 03:45: Carbon Dioxide 21 L, BUN 70 H, Creatinine 2.36 H EKG Reviewed by me: Yes (Atrial fibrillation on telemetry) Hospitalist ROS - Review of Systems Respiratory: reports: SOB with excertion. denies: cough, dry, shortness of breath, hemoptysis, pleuritic pain, sputum, wheezing, other Gastrointestinal: denies: nausea, vomiting, abdominal pain, diarrhea, constipation, melena, hematochezia, other - Medication Medications: Active Medications Generic Name Dose Route Start Last Admin Trade Name Freq PRN Reason Stop Dose Admin Acetaminophen 650 mg 05/12/20 04:27 05/12/20 04:34 Acetaminophen 325 Mg Tab PO 650 mg Q6H PRN Administration Fever/Mild Pain Albuterol/Ipratropium 3 ml 05/09/20 10:30 05/15/20 09:58 Ipratropium/Albuterol Sulfate 3 Ml Neb NEB 3 ml [id number] SAUD Administration Apixaban 2.5 mg 05/08/20 09:00 05/15/20 08:58 Apixaban 2.5 Mg Tab PO 2.5 mg BID SAUD Administration Aspirin 81 mg 05/09/20 09:00 05/15/20 08:56 Aspirin Chewable 81 Mg Tab PO 81 mg DAILY SAUD Administration Atorvastatin Calcium 40 mg 05/10/20 21:00 05/14/20 20:36 Atorvastatin Calcium 40 Mg Tab PO 40 mg HS SAUD Administration Bisacodyl 10 mg 05/11/20 10:22 05/11/20 16:38 Bisacodyl 10 Mg Supp [place] 10 mg DAILYPRN PRN Administration Constipation Carvedilol 6.25 mg 05/08/20 21:00 05/15/20 08:58 Carvedilol 6.25 Mg Tab PO 6.25 mg BID SAUD Administration Cyanocobalamin 1,000 mcg 05/12/20 09:00 05/15/20 08:57 Cyanocobalamin (Vitamin B-12) 1,000 Mcg Tab PO 1,000 mcg DAILY SAUD Administration Famotidine 20 mg 05/12/20 09:00 05/15/20 08:58 Famotidine 20 Mg Tab PO 20 mg 0900 SAUD Administration Folic Acid 1 mg 05/12/20 09:00 05/15/20 09:00 Folic Acid 1 Mg Tab PO 1 mg DAILY SAUD Administration Furosemide 40 mg 05/09/20 09:00 05/15/20 08:57 Furosemide 20 Mg Tab PO 40 mg QAM SAUD Administration Ceftriaxone Sodium 1 gm/ 100 mls @ 200 mls/hr 05/14/20 18:00 05/14/20 17:51 Sodium Chloride IVPB 100 mls Q24HR SAUD Administration Insulin Human NPH 15 unit 05/14/20 09:00 05/15/20 09:04 Nph, Human Insulin Isophane 300 Unit/3 Ml Vial SC 15 units DAILY SAUD Administration Insulin Human Regular 0 units 05/10/20 19:04 05/15/20 11:41 Insulin Regular 300 Units/3 Ml Vial SC 4 unit .MODERATE SLIDING SC PRN Administration Moderate Correctional Scale Insulin Human Regular 0 units 05/10/20 19:04 05/11/20 02:33 Insulin Regular 300 Units/3 Ml Vial SC 2 unit .BEDTIME SLIDING SC PRN Administration Bedtime Correctional Scale Multivitamins 1 tab 05/12/20 09:00 05/15/20 08:57 Multivit, Therapeutic 1 Tab PO 1 tab DAILY SAUD Administration Nitroglycerin 0.4 mg 05/05/20 16:15 05/06/20 23:05 Nitroglycerin 0.4 Mg Tab (25 Tab Bottle) SL 0.4 mg Q5MIN PRN Administration Chest Pain Ondansetron HCl 8 mg 05/07/20 09:10 05/08/20 11:24 Ondansetron Odt 4 Mg Tab SL 8 mg BID PRN Administration Nausea/Vomiting Polyethylene Glycol 17 gm 05/13/20 09:00 05/15/20 09:04 Polyethylene Glycol 3350 17 Gm Packet PO Not Given DAILY SAUD Senna/Docusate Sodium 1 tab 05/13/20 06:04 05/15/20 08:56 Senokot S 8.6-50 Mg Tab PO 1 tab BID SAUD Administration Simethicone 80 mg 05/07/20 01:49 05/10/20 21:17 Simethicone Chewable 80 Mg Tab PO 80 mg PCHS PRN Administration Gas Pain Sodium Chloride 10 ml 05/05/20 16:15 05/07/20 10:07 Flush - Normal Saline 10 Ml Syringe IVF 10 ml PRN PRN Administration Saline Flush Sodium Chloride 10 ml 05/05/20 21:00 05/15/20 09:04 Flush - Normal Saline 10 Ml Syringe IVF 10 ml Q12HR SAUD Administration - Exam General Appearance: NAD Neck: supple, no JVD Heart: RRR, no gallops Respiratory: no wheezes, normal chest expansion, rhonchi Gastrointestinal: soft, non-tender Extremities: no cyanosis, no clubbing Neurological: no new deficit Hosp A/P - Plan Acute hypoxic respiratory failure requiring noninvasive positive pressure ventilation HONG on CKD IV Asthma exacerbation Acute anterolateral myocardial infarction Acute systolic heart failureejection fraction 20 to 25% due to ischemic cardiomyopathy Hypertension Coronary artery disease Chronic metabolic acidosis probably due to renal insufficiency History of prostate cancer Chronic low back pain Impaired glucose tolerance Constipationresolved ? Obstructive sleep apnea On BiPAP nightly while in the hospital needs a sleep study as outpatient Plan: [place] catheter discontinued this morning. Will recheck UA to rule out UTI. Continue current dose of Lasix, carvedilol. Continue low-dose prednisone. A.m. labs. Prednisone taper. Continue nebulizer treatments. Continue other medications as above
--- NOTE | 2020-05-15 13:04 | PRG ---
DATE OF SERVICE: 05/15/2020 SUBJECTIVE: Mr. Yousif is in no distress. Says he slept well. I have explained him that he needs to contact me after he gets out of the hospital, so that he can set him up with a sleep study. OBJECTIVE: VITAL SIGNS: He is afebrile, heart rate is in 70s, respiratory rates in the teens, blood pressure 141/80, and oximetry is 97% on room air. LUNGS: Clear. HEART: Regular rhythm. ABDOMEN: Soft. IMPRESSION: 1. Chronic persistent asthma. 2. Coronary artery disease. 3. Systolic cardiomyopathy. 4. Diabetes. 5. Obesity and deconditioning. As he appears to be stable at this point in time from a pulmonary standpoint, we will sign off. His cultures are negative. His IV antimicrobial therapy can be discontinued. He could be treated with p.o. antimicrobial therapy that would cover aspiration pathogens such as Omnicef or Ceftin. He is allergic to Augmentin and penicillin. I will be happy to follow him and see him as an outpatient. Job ID: [id number]
[2020-05-15] MEDS: Atorvastatin Calcium 40 MG TAB PO SCH (20:51)
[2020-05-16 05:12] LABS: #Basophils 0.1 thou/uL (0.0-0.2); #Eosinphils 0.1 thou/uL (0.0-0.7); #Lymphocytes 1.8 thou/uL (1.20-3.40); #Monocytes 1.2 thou/uL (0.11-0.59); #Neutrophils 11.4 thou/uL (1.40-6.50); %Basophils 0.4 % (0.0-1.0); %Eosinophils 0.9 % (0.0-10.0); %Monocytes 8.2 % (0.0-10.0); %Neutrophils 78.4 % (42.0-75.0); Hemoglobin 15.7 g/dL (14.0-18.0); Mean Corpuscular HGB CONC 32.8 g/dL (32.0-36.0); Mean Corpuscular Hemoglobin 30.9 pg (27.0-31.0); Mean Corpuscular Volume 94.3 fL (78.0-98.0); Mean Platelet Volume 9.7 fL (7.4-10.4); Platelet Count 252 thou/uL (130-400); RBC Distribution Width 11.9 % (11.5-14.5); Red Blood Cell (RBC) Count 5.08 mill/uL (4.70-6.10); White Blood Cell (WBC) Count 14.6 thou/uL (4.8-10.8)
[2020-05-16 05:31] LABS: Anion Gap 17 mmol/L (10-20); BUN (Urea Nitrogen) 66 mg/dL (8.4-25.7); Calc. Creatinine Clearance 35 mL/min (70-130); Calcium 8.9 mg/dL (7.8-10.44); Carbon Dioxide 22 mmol/L (23-31); Chloride 103 mmol/L (98-107); Glucose 136 mg/dL (83-110); Potassium 4.4 mmol/L (3.5-5.1); Sodium 138 mmol/L (136-145)
[2020-05-16 05:56] LABS: Bacteria/HPF None Seen HPF (None Seen); Bilirubin Negative (Negative); Blood, Urine Negative (Negative); Clarity Clear (Clear); Glucose, Urine (Dipstick) Normal (Negative); Ketone, Urine Negative (Negative); Leukocyte Negative Leu/uL (Negative); Nitrite Negative (Negative); Protein, Urine (Dipstick) Negative (Neg-Trace); RBC/HPF 0-3 HPF (0-3); Specific Gravity, Urine 1.015 (1.002-1.036); Squamous Epithelial None Seen HPF (0-3); Urobilinogen Normal mg/dL (Less than 2); WBC/HPF 0-3 HPF (0-3); pH, Urine 5.5 (5.0-9.0)
[2020-05-16 05:57] LABS: Urine Culture Reflex No No
[2020-05-16] MEDS ORDERED: predniSONE 20 MG TAB PO SCH (08:00)
[2020-05-16] MEDS: Carvedilol 6.25 MG TAB PO SCH ×2 (09:21→21:11)
[2020-05-16] MEDS: Multivit, Therapeutic 1 TAB PO SCH (09:22)
[2020-05-16] MEDS: Famotidine 20 MG TAB PO SCH (09:22)
[2020-05-16] MEDS: Folic Acid 1 MG TAB PO SCH (09:22)
[2020-05-16] MEDS: Cyanocobalamin (Vitamin B-12) 1,000 MCG TAB PO SCH (09:22)
[2020-05-16] MEDS: Apixaban 2.5 MG TAB PO SCH ×2 (09:22→21:11)
[2020-05-16] MEDS: Polyethylene Glycol 3350 17 GM Packet PO SCH (09:23)
[2020-05-16] MEDS: Aspirin Chewable 81 MG TAB PO SCH (09:23)
[2020-05-16] MEDS: NPH, Human Insulin Isophane 300 UNIT/3 ML VIAL SC SCH (09:23)
[2020-05-16] MEDS: Furosemide 20 MG TAB PO SCH (09:23)
[2020-05-16] MEDS: Senokot S 8.6-50 MG TAB PO SCH ×2 (09:24→21:12)
--- NOTE | 2020-05-16 12:08 | PDOC.HOSPP ---
- Subjective Encounter Date: 05/16/20 Encounter Time: 11:00 Subjective: no sob, is sitting on bed and watching tv no chest pain or palp now - Objective Vital Signs & Weight: Vital Signs (12 hours) Temp Pulse Resp BP Pulse Ox 05/16/20 07:01 77 16 05/16/20 04:25 97.5 F L 88 20 136/69 94 L 05/16/20 01:16 98 Weight Admit Weight 194 lb Weight 208 lb 11.2 oz Most Recent Monitor Data Heart Rate from ECG 55 NIBP 134/69 NIBP BP-Mean 90 Respiration from ECG 17 SpO2 97 I&O: 05/15/20 05/16/20 05/17/20 06:59 06:59 06:59 Intake Total 1780 1160 Output Total 3850 800 Balance -2070 360 Result Diagrams: 05/16/20 04:48 05/16/20 04:48 Additional Labs: Accuchecks 05/16/20 05/16/20 05/15/20 11:00 05:28 20:48 POC Glucose 172 H 125 H 190 H 05/15/20 17:10 POC Glucose 154 H Hospitalist ROS - Medication Medications: Active Medications Generic Name Dose Route Start Last Admin Trade Name Freq PRN Reason Stop Dose Admin Acetaminophen 650 mg 05/12/20 04:27 05/12/20 04:34 Acetaminophen 325 Mg Tab PO 650 mg Q6H PRN Administration Fever/Mild Pain Albuterol/Ipratropium 3 ml 05/09/20 10:30 05/16/20 11:42 Ipratropium/Albuterol Sulfate 3 Ml Neb NEB Not Given [id number] SAUD Apixaban 2.5 mg 05/08/20 09:00 05/16/20 09:22 Apixaban 2.5 Mg Tab PO 2.5 mg BID SAUD Administration Aspirin 81 mg 05/09/20 09:00 05/16/20 09:23 Aspirin Chewable 81 Mg Tab PO 81 mg DAILY SAUD Administration Atorvastatin Calcium 40 mg 05/10/20 21:00 05/15/20 20:51 Atorvastatin Calcium 40 Mg Tab PO 40 mg HS SAUD Administration Bisacodyl 10 mg 05/11/20 10:22 05/11/20 16:38 Bisacodyl 10 Mg Supp [place] 10 mg DAILYPRN PRN Administration Constipation Carvedilol 6.25 mg 05/08/20 21:00 05/16/20 09:21 Carvedilol 6.25 Mg Tab PO 6.25 mg BID SAUD Administration Cyanocobalamin 1,000 mcg 05/12/20 09:00 05/16/20 09:22 Cyanocobalamin (Vitamin B-12) 1,000 Mcg Tab PO 1,000 mcg DAILY SAUD Administration Famotidine 20 mg 05/12/20 09:00 05/16/20 09:22 Famotidine 20 Mg Tab PO 20 mg 0900 SAUD Administration Folic Acid 1 mg 05/12/20 09:00 05/16/20 09:22 Folic Acid 1 Mg Tab PO 1 mg DAILY SAUD Administration Furosemide 40 mg 05/09/20 09:00 05/16/20 09:23 Furosemide 20 Mg Tab PO 40 mg QAM SAUD Administration Insulin Human NPH 15 unit 05/14/20 09:00 05/16/20 09:23 Nph, Human Insulin Isophane 300 Unit/3 Ml Vial SC 15 units DAILY SAUD Administration Insulin Human Regular 0 units 05/10/20 19:04 05/15/20 11:41 Insulin Regular 300 Units/3 Ml Vial SC 4 unit .MODERATE SLIDING SC PRN Administration Moderate Correctional Scale Insulin Human Regular 0 units 05/10/20 19:04 05/11/20 02:33 Insulin Regular 300 Units/3 Ml Vial SC 2 unit .BEDTIME SLIDING SC PRN Administration Bedtime Correctional Scale Multivitamins 1 tab 05/12/20 09:00 05/16/20 09:22 Multivit, Therapeutic 1 Tab PO 1 tab DAILY SAUD Administration Nitroglycerin 0.4 mg 05/05/20 16:15 05/06/20 23:05 Nitroglycerin 0.4 Mg Tab (25 Tab Bottle) SL 0.4 mg Q5MIN PRN Administration Chest Pain Ondansetron HCl 8 mg 05/07/20 09:10 05/08/20 11:24 Ondansetron Odt 4 Mg Tab SL 8 mg BID PRN Administration Nausea/Vomiting Polyethylene Glycol 17 gm 05/13/20 09:00 05/16/20 09:23 Polyethylene Glycol 3350 17 Gm Packet PO Not Given DAILY SAUD Senna/Docusate Sodium 1 tab 05/13/20 06:04 05/16/20 09:24 Senokot S 8.6-50 Mg Tab PO Not Given BID [facility] Simethicone 80 mg 05/07/20 01:49 05/10/20 21:17 Simethicone Chewable 80 Mg Tab PO 80 mg PCHS PRN Administration Gas Pain Sodium Chloride 10 ml 05/05/20 16:15 05/07/20 10:07 Flush - Normal Saline 10 Ml Syringe IVF 10 ml PRN PRN Administration Saline Flush Sodium Chloride 10 ml 05/05/20 21:00 05/16/20 09:24 Flush - Normal Saline 10 Ml Syringe IVF 10 ml Q12HR SAUD Administration - Exam General Appearance: awake alert Eye: anicteric sclera ENT: no oropharyngeal lesions, dry oral mucosa Neck: supple, no JVD Heart: RRR, no murmur Respiratory: no wheezes, no rales, rhonchi Gastrointestinal: soft, non-tender, non-distended, normal bowel sounds Extremities: no cyanosis, 1+ LE edema Neurological: cranial nerve grossly intact, no focal deficits Psychiatric: A&O x 3 Hosp A/P (1) Acute systolic (congestive) heart failure Code(s): I50.21 - ACUTE SYSTOLIC (CONGESTIVE) HEART FAILURE Status: Acute (2) STEMI (ST elevation myocardial infarction) Status: Acute Qualifiers: Involved coronary artery: left main coronary artery Qualified Code(s): I21.01 - ST elevation (STEMI) myocardial infarction involving left main coronary artery (3) Acute on chronic renal failure Code(s): N17.9 - ACUTE KIDNEY FAILURE, UNSPECIFIED; N18.9 - CHRONIC KIDNEY DISEASE, UNSPECIFIED Status: Acute Qualifiers: Chronic kidney disease stage: stage 3 (moderate) (4) Physical deconditioning Code(s): R53.81 - OTHER MALAISE Status: Acute (5) Asthma Code(s): J45.909 - UNSPECIFIED ASTHMA, UNCOMPLICATED Status: Chronic Qualifiers: Asthma severity: moderate Asthma persistence: persistent Asthma complication type: unspecified Qualified Code(s): J45.40 - Moderate persistent asthma, uncomplicated (6) HTN (hypertension) Code(s): I10 - ESSENTIAL (PRIMARY) HYPERTENSION Status: Chronic Qualifiers: Hypertension type: essential hypertension Qualified Code(s): I10 - Essential (primary) hypertension (7) H/O prostate cancer Code(s): Z85.46 - PERSONAL HISTORY OF MALIGNANT NEOPLASM OF PROSTATE Status: Chronic (8) Dyslipidemia Code(s): E78.5 - HYPERLIPIDEMIA, UNSPECIFIED Status: Chronic (9) CAD (coronary artery disease) Code(s): I25.10 - ATHSCL HEART DISEASE OF [place] CORONARY ARTERY W/O ANG PCTRS Status: Acute Qualifiers: Coronary Disease-Associated Artery/Lesion type: [place] artery [place] vs. transplanted heart: [place] heart Associated angina: with stable angina Qualified Code(s): I25.118 - Atherosclerotic heart disease of [place] coronary artery with other forms of angina pectoris (10) Afib Code(s): I48.91 - UNSPECIFIED ATRIAL FIBRILLATION Status: Chronic Qualifiers: Atrial fibrillation type: longstanding persistent Qualified Code(s): I48.11 - Longstanding persistent atrial fibrillation (11) Hyperglycemia Code(s): R73.9 - HYPERGLYCEMIA, UNSPECIFIED Status: Chronic - Plan is on eliquis, asp, lipitor, coreg, lasix, nebs, nph 15u, prednisone renal function is still high and is slowly trending down prognosis guarded is wearing life vest hemostable add omnicef for uti/asthma flare up anterolat stemi with diffuse disease of LAD/multivessel disease and ef of 20% with severe hypokinesis/akinesis of LV
--- NOTE | 2020-05-16 16:29 | PDOC.CPN ---
- Subjective Date: 05/16/20 Time: 11:50 Interval history: No complaints. No overnight events. Patient sitting up to bedside. Edema present, but improved. - Review of Systems General: denies: fever/chills, weight/appetite/sleep changes, night sweats, fatigue Respiratory: reports: shortness of breath Cardiovascular: denies: chest pain, palpitation, edema, paroxysmal nocturnal dyspnea, orthopnea Musculoskeletal: denies: pain, tenderness, stiffness, swelling, arthritis/arthralgias Neurological: denies: numbness, syncope, seizure, weakness - Objective Allergies/Adverse Reactions: Allergies Allergy/AdvReac Type Severity Reaction Status Date / Time codeine Allergy Verified 05/05/20 16:11 Penicillins Allergy Verified 05/05/20 20:32 Visit Medications: Current Medications Acetaminophen (Acetaminophen 325 Mg Tab) 650 mg PO Q6H PRN PRN Reason: Fever/Mild Pain Last Admin: 05/12/20 04:34 Dose: 650 mg Documented by: Albuterol/Ipratropium (Ipratropium/Albuterol Sulfate 3 Ml Neb) 3 ml EZPAP Q2HR- RT PRN PRN Reason: SOB &/or Wheezing Albuterol/Ipratropium (Ipratropium/Albuterol Sulfate 3 Ml Neb) 3 ml NEB [id number] [facility] Last Admin: 05/16/20 14:08 Dose: 3 ml Documented by: Apixaban (Apixaban 2.5 Mg Tab) 2.5 mg PO BID [facility] Last Admin: 05/16/20 09:22 Dose: 2.5 mg Documented by: Aspirin (Aspirin Chewable 81 Mg Tab) 81 mg PO DAILY [facility] Last Admin: 05/16/20 09:23 Dose: 81 mg Documented by: Atorvastatin Calcium (Atorvastatin Calcium 40 Mg Tab) 40 mg PO HS [facility] Last Admin: 05/15/20 20:51 Dose: 40 mg Documented by: Bisacodyl (Bisacodyl 10 Mg Supp) 10 mg NE DAILYPRN PRN PRN Reason: Constipation Last Admin: 05/11/20 16:38 Dose: 10 mg Documented by: Carvedilol (Carvedilol 6.25 Mg Tab) 6.25 mg PO BID [facility] Last Admin: 05/16/20 09:21 Dose: 6.25 mg Documented by: Cefdinir (Cefdinir 300 Mg Cap) 300 mg PO DAILY SAUD Cyanocobalamin (Cyanocobalamin (Vitamin B-12) 1,000 Mcg Tab) 1,000 mcg PO DAILY [facility] Last Admin: 05/16/20 09:22 Dose: 1,000 mcg Documented by: Dextrose/Water (Dextrose 50% Abboject 50 Ml Syringe) 25 gm SLOW IVP PRN PRN PRN Reason: PER HYPOGLYCEMIC PROTOCOL Famotidine (Famotidine 20 Mg Tab) 20 mg PO 0900 [facility] Last Admin: 05/16/20 09:22 Dose: 20 mg Documented by: Folic Acid (Folic Acid 1 Mg Tab) 1 mg PO DAILY [facility] Last Admin: 05/16/20 09:22 Dose: 1 mg Documented by: Furosemide (Furosemide 20 Mg Tab) 40 mg PO QAM [facility] Last Admin: 05/16/20 09:23 Dose: 40 mg Documented by: Glucagon (Glucagon 1 Mg/Ml Vial) 1 mg SC PRN PRN PRN Reason: PER HYPOGLYCEMIC PROTOCOL Dextrose/Water (D5w) 1,000 mls @ 0 mls/hr IV INF PRN PRN Reason: PRN HYPOGLYCEMIC PROTOCOL Insulin Human NPH (Nph, Human Insulin Isophane 300 Unit/3 Ml Vial) 15 unit SC DAILY [facility] Last Admin: 05/16/20 09:23 Dose: 15 units Documented by: Insulin Human Regular (Insulin Regular 300 Units/3 Ml Vial) 0 units SC .MODERATE SLIDING SC PRN PRN Reason: Moderate Correctional Scale Last Admin: 05/15/20 11:41 Dose: 4 unit Documented by: Insulin Human Regular (Insulin Regular 300 Units/3 Ml Vial) 0 units SC .BEDTIME SLIDING SC PRN PRN Reason: Bedtime Correctional Scale Last Admin: 05/11/20 02:33 Dose: 2 unit Documented by: Multivitamins (Multivit, Therapeutic 1 Tab) 1 tab PO DAILY [facility] Last Admin: 05/16/20 09:22 Dose: 1 tab Documented by: Nitroglycerin (Nitroglycerin 0.4 Mg Tab (25 Tab Bottle)) 0.4 mg SL Q5MIN PRN PRN Reason: Chest Pain Last Admin: 05/06/20 23:05 Dose: 0.4 mg Documented by: Ondansetron HCl (Ondansetron Odt 4 Mg Tab) 8 mg SL BID PRN PRN Reason: Nausea/Vomiting Last Admin: 05/08/20 11:24 Dose: 8 mg Documented by: Polyethylene Glycol (Polyethylene Glycol 3350 17 Gm Packet) 17 gm PO DAILY PRN PRN Reason: Constipation Polyethylene Glycol (Polyethylene Glycol 3350 17 Gm Packet) 17 gm PO DAILY [facility] Last Admin: 05/16/20 09:23 Dose: Not Given Documented by: Prednisone (Prednisone 20 Mg Tab) 20 mg PO QAM[facility] Senna/Docusate Sodium (Senokot S 8.6-50 Mg Tab) 1 tab PO BID [facility] Last Admin: 05/16/20 09:24 Dose: Not Given Documented by: Simethicone (Simethicone Chewable 80 Mg Tab) 80 mg PO PCHS PRN PRN Reason: Gas Pain Last Admin: 05/10/20 21:17 Dose: 80 mg Documented by: Sodium Biphosphate/Sodium Phosphate (Fleet Enema 133 Ml Bot) 133 ml NE DAILY PRN PRN Reason: Constipation Sodium Chloride (Flush - Normal Saline 10 Ml Syringe) 10 ml IVF PRN PRN PRN Reason: Saline Flush Last Admin: 05/07/20 10:07 Dose: 10 ml Documented by: Sodium Chloride (Flush - Normal Saline 10 Ml Syringe) 10 ml IVF Q12HR [facility] Last Admin: 05/16/20 09:24 Dose: 10 ml Documented by: Vital Signs & Weight: Vital Signs Temp Pulse Pulse Pulse Resp BP BP 05/16/20 14:08 102 H 17 05/16/20 11:33 66 84 143/71 H 130/61 05/16/20 11:10 98.3 F 60 18 05/16/20 07:40 98.4 F 76 16 05/16/20 07:01 77 16 BP BP Pulse Ox 05/16/20 14:08 05/16/20 11:33 05/16/20 11:10 126/64 97 05/16/20 07:40 139/73 97 05/16/20 07:01 Admit Weight 194 lb Weight 208 lb 11.2 oz - Physical Exam General: alert & oriented x3, appears well, no apparent distress HEENT: mucus membranes moist Neck: supple neck Cardiac: regular rate and rhythm Lungs: normal breath sounds, normal exam Neuro: grossly intact Abdomen: soft, non-tender Extremities: 1+ LE edema Skin: clear Musculoskeletal: no pain - Labs Result Diagrams: 05/16/20 04:48 05/17/20 04:03 Troponin/CKMB CK-MB (CK-2) 30.5 ng/mL (0-6.6) H* 05/07/20 03:20 Troponin I 18.207 ng/mL (< 0.028) H* 05/08/20 03:09 - Assessment/Plan Assessment/Plan: 1. Acute on chronic systolic CHF 2. Chronic asthma 3. NOMAN/CKD 4. paroxysmal AF 5. COPD 6. DM Patient with good output. LifeVest in place. On ACT, but slightly underdosed by age/weight/Cr. Continue abx and supportive care. No changes on my part today. 05/15/2020 RG agree with the above. Pt seen and examined.
[2020-05-16] MEDS: Insulin Regular 300 UNITS/3 ML VIAL SC PRN (17:52)
[2020-05-16] MEDS: Atorvastatin Calcium 40 MG TAB PO SCH (21:11)
[2020-05-17 05:14] LABS: Anion Gap 17 mmol/L (10-20); BUN (Urea Nitrogen) 64 mg/dL (8.4-25.7); Calc. Creatinine Clearance 36 mL/min (70-130); Calcium 8.7 mg/dL (7.8-10.44); Carbon Dioxide 25 mmol/L (23-31); Chloride 103 mmol/L (98-107); Glucose 93 mg/dL (83-110); Potassium 4.6 mmol/L (3.5-5.1); Sodium 140 mmol/L (136-145)
[2020-05-17] MEDS ORDERED: predniSONE 20 MG TAB PO SCH (08:00)
[2020-05-17] MEDS: Furosemide 20 MG TAB PO SCH (08:55)
[2020-05-17] MEDS: Multivit, Therapeutic 1 TAB PO SCH (08:55)
[2020-05-17] MEDS: Carvedilol 6.25 MG TAB PO SCH (08:55)
[2020-05-17] MEDS: Cyanocobalamin (Vitamin B-12) 1,000 MCG TAB PO SCH (08:56)
[2020-05-17] MEDS: Apixaban 2.5 MG TAB PO SCH (08:56)
[2020-05-17] MEDS: Famotidine 20 MG TAB PO SCH (08:56)
[2020-05-17] MEDS: Aspirin Chewable 81 MG TAB PO SCH (08:56)
[2020-05-17] MEDS: Senokot S 8.6-50 MG TAB PO SCH (08:56)
[2020-05-17] MEDS: Folic Acid 1 MG TAB PO SCH (08:57)
[2020-05-17] MEDS: Polyethylene Glycol 3350 17 GM Packet PO SCH (08:59)
[2020-05-17] MEDS ORDERED: Cefdinir 300 MG CAP PO SCH (09:00)
[2020-05-17] MEDS: NPH, Human Insulin Isophane 300 UNIT/3 ML VIAL SC SCH (10:47)
[2020-05-17 13:14] VITALS: BP 132/60; TEMP 97.5
--- NOTE | 2020-05-17 13:18 | PDOC.HOSPP ---
- Subjective Encounter Date: 05/17/20 Encounter Time: 12:15 Subjective: no sob, is ambulating with rw had shower this am feels better - Objective Vital Signs & Weight: Vital Signs (12 hours) Temp Pulse Resp BP BP BP Pulse Ox 05/17/20 12:07 97.5 F L 82 16 132/60 96 05/17/20 10:04 77 12 05/17/20 08:55 134/75 05/17/20 08:00 98.6 F 77 16 134/75 94 L 05/17/20 06:42 98 14 05/17/20 03:45 98.1 F 49 L 18 144/74 H 98 Weight Admit Weight 194 lb Weight 216 lb Most Recent Monitor Data Heart Rate from ECG 55 NIBP 134/69 NIBP BP-Mean 90 Respiration from ECG 17 SpO2 97 I&O: 05/16/20 05/17/20 05/18/20 06:59 06:59 06:59 Intake Total 1160 1280 240 Output Total 800 Balance 360 1280 240 Result Diagrams: 05/16/20 04:48 05/17/20 04:03 Additional Labs: Accuchecks 05/17/20 05/17/20 05/16/20 10:53 05:14 17:29 POC Glucose 148 H 101 H 196 H Hospitalist ROS - Medication Medications: Active Medications Generic Name Dose Route Start Last Admin Trade Name Freq PRN Reason Stop Dose Admin Acetaminophen 650 mg 05/12/20 04:27 05/12/20 04:34 Acetaminophen 325 Mg Tab PO 650 mg Q6H PRN Administration Fever/Mild Pain Albuterol/Ipratropium 3 ml 05/09/20 10:30 05/17/20 10:04 Ipratropium/Albuterol Sulfate 3 Ml Neb NEB 3 ml [id number] SAUD Administration Apixaban 2.5 mg 05/08/20 09:00 05/17/20 08:56 Apixaban 2.5 Mg Tab PO 2.5 mg BID SAUD Administration Aspirin 81 mg 05/09/20 09:00 05/17/20 08:56 Aspirin Chewable 81 Mg Tab PO 81 mg DAILY SAUD Administration Atorvastatin Calcium 40 mg 05/10/20 21:00 05/16/20 21:11 Atorvastatin Calcium 40 Mg Tab PO 40 mg HS SAUD Administration Bisacodyl 10 mg 05/11/20 10:22 05/11/20 16:38 Bisacodyl 10 Mg Supp MO 10 mg DAILYPRN PRN Administration Constipation Carvedilol 6.25 mg 05/08/20 21:00 05/17/20 08:55 Carvedilol 6.25 Mg Tab PO 6.25 mg BID SAUD Administration Cefdinir 300 mg 05/17/20 09:00 05/17/20 08:56 Cefdinir 300 Mg Cap PO 300 mg DAILY ASUD Administration Cyanocobalamin 1,000 mcg 05/12/20 09:00 05/17/20 08:56 Cyanocobalamin (Vitamin B-12) 1,000 Mcg Tab PO 1,000 mcg DAILY SAUD Administration Famotidine 20 mg 05/12/20 09:00 05/17/20 08:56 Famotidine 20 Mg Tab PO 20 mg 0900 SAUD Administration Folic Acid 1 mg 05/12/20 09:00 05/17/20 08:57 Folic Acid 1 Mg Tab PO 1 mg DAILY SAUD Administration Furosemide 40 mg 05/09/20 09:00 05/17/20 08:55 Furosemide 20 Mg Tab PO 40 mg QAM SAUD Administration Insulin Human NPH 15 unit 05/14/20 09:00 05/17/20 10:47 Nph, Human Insulin Isophane 300 Unit/3 Ml Vial SC Not Given DAILY [facility] Insulin Human Regular 0 units 05/10/20 19:04 05/16/20 17:52 Insulin Regular 300 Units/3 Ml Vial SC 2 unit .MODERATE SLIDING SC PRN Administration Moderate Correctional Scale Insulin Human Regular 0 units 05/10/20 19:04 05/11/20 02:33 Insulin Regular 300 Units/3 Ml Vial SC 2 unit .BEDTIME SLIDING SC PRN Administration Bedtime Correctional Scale Multivitamins 1 tab 05/12/20 09:00 05/17/20 08:55 Multivit, Therapeutic 1 Tab PO 1 tab DAILY SAUD Administration Nitroglycerin 0.4 mg 05/05/20 16:15 05/06/20 23:05 Nitroglycerin 0.4 Mg Tab (25 Tab Bottle) SL 0.4 mg Q5MIN PRN Administration Chest Pain Ondansetron HCl 8 mg 05/07/20 09:10 05/08/20 11:24 Ondansetron Odt 4 Mg Tab SL 8 mg BID PRN Administration Nausea/Vomiting Polyethylene Glycol 17 gm 05/13/20 09:00 05/17/20 08:59 Polyethylene Glycol 3350 17 Gm Packet PO Not Given DAILY ASUD Prednisone 20 mg 05/17/20 08:00 05/17/20 08:56 Prednisone 20 Mg Tab PO 20 mg QAM-WM SAUD Administration Senna/Docusate Sodium 1 tab 05/13/20 06:04 05/17/20 08:56 Senokot S 8.6-50 Mg Tab PO 1 tab BID SAUD Administration Simethicone 80 mg 05/07/20 01:49 05/10/20 21:17 Simethicone Chewable 80 Mg Tab PO 80 mg PCHS PRN Administration Gas Pain Sodium Chloride 10 ml 05/05/20 16:15 05/07/20 10:07 Flush - Normal Saline 10 Ml Syringe IVF 10 ml PRN PRN Administration Saline Flush Sodium Chloride 10 ml 05/05/20 21:00 05/17/20 09:05 Flush - Normal Saline 10 Ml Syringe IVF 10 ml Q12HR SAUD Administration - Exam General Appearance: awake alert Eye: PERRL, anicteric sclera ENT: no oropharyngeal lesions, moist mucosa Neck: supple, no JVD Heart: RRR, no murmur Respiratory: no wheezes, no rales Gastrointestinal: soft, non-tender, non-distended, normal bowel sounds Extremities: no cyanosis, no edema Neurological: cranial nerve grossly intact, no focal deficits Psychiatric: A&O x 3 Hosp A/P (1) Acute systolic (congestive) heart failure Code(s): I50.21 - ACUTE SYSTOLIC (CONGESTIVE) HEART FAILURE Status: Acute (2) STEMI (ST elevation myocardial infarction) Status: Acute Qualifiers: Involved coronary artery: left main coronary artery Qualified Code(s): I21.01 - ST elevation (STEMI) myocardial infarction involving left main coronary artery (3) Acute on chronic renal failure Code(s): N17.9 - ACUTE KIDNEY FAILURE, UNSPECIFIED; N18.9 - CHRONIC KIDNEY DISEASE, UNSPECIFIED Status: Acute Qualifiers: Chronic kidney disease stage: stage 3 (moderate) (4) Physical deconditioning Code(s): R53.81 - OTHER MALAISE Status: Acute (5) Asthma Code(s): J45.909 - UNSPECIFIED ASTHMA, UNCOMPLICATED Status: Chronic Qualifiers: Asthma severity: moderate Asthma persistence: persistent Asthma complication type: unspecified Qualified Code(s): J45.40 - Moderate persistent asthma, uncomplicated (6) HTN (hypertension) Code(s): I10 - ESSENTIAL (PRIMARY) HYPERTENSION Status: Chronic Qualifiers: Hypertension type: essential hypertension Qualified Code(s): I10 - Essential (primary) hypertension (7) H/O prostate cancer Code(s): Z85.46 - PERSONAL HISTORY OF MALIGNANT NEOPLASM OF PROSTATE Status: Chronic (8) Dyslipidemia Code(s): E78.5 - HYPERLIPIDEMIA, UNSPECIFIED Status: Chronic (9) CAD (coronary artery disease) Code(s): I25.10 - ATHSCL HEART DISEASE OF [place] CORONARY ARTERY W/O ANG PCTRS Status: Acute Qualifiers: Coronary Disease-Associated Artery/Lesion type: red devil artery [place] vs. transplanted heart: red devil heart Associated angina: with stable angina Qualified Code(s): I25.118 - Atherosclerotic heart disease of [place] coronary artery with other forms of angina pectoris (10) Afib Code(s): I48.91 - UNSPECIFIED ATRIAL FIBRILLATION Status: Chronic Qualifiers: Atrial fibrillation type: longstanding persistent Qualified Code(s): I48.11 - Longstanding persistent atrial fibrillation (11) Hyperglycemia Code(s): R73.9 - HYPERGLYCEMIA, UNSPECIFIED Status: Chronic - Plan is on eliquis, asp, lipitor, coreg, lasix, nebs, nph 8u, prednisone renal function is slowly trending down prognosis guarded is wearing life vest hemostable omnicef for uti/asthma flare up anterolat stemi with diffuse disease of LAD/multivessel disease and ef of 20% with severe hypokinesis/akinesis of LV may dc to inpt rehab if accepted
--- NOTE | 2020-05-18 16:07 | DIS ---
DATE OF ADMISSION: 05/06/2020 DATE OF DISCHARGE: 05/17/2020 DISCHARGE DISPOSITION: To inpatient rehab. PRIMARY DISCHARGE DIAGNOSES: Acute congestive heart failure exacerbation with systolic dysfunction, ST-elevation myocardial infarction with involvement of left main coronary artery, acute on chronic renal failure, deconditioning, history of moderate persistent asthma, hypertension, history of prostate cancer, dyslipidemia, coronary artery disease, chronic atrial fibrillation, hyperglycemia due to steroids/glucose intolerance. PROCEDURES DONE DURING HOSPITALIZATION: Chest x-ray done on the day of admission showed interstitial prominence. Coronary angiogram done on 05/05/[address] Figueroa showed severely impaired LV function with ejection fraction of around 20% to 25%, multivessel coronary artery disease, diffuse coronary artery disease, diffuse of the left main coronary artery. Left main coronary artery had 75% stenosis, 5 mm in length. Mid LAD had 90% stenosis, distal LAD 90% stenosis, proximal LAD 90% stenosis, second obtuse marginal at 30% stenosis. RCA showed previous stent to be patent. Distal RCA had 50% stenosis. Echo with 2D Doppler done showed ejection fraction of 20% to 25%. Entire apex was akinetic. The only portion that showed some degree of contractility was the base. Urine culture grew Citrobacter freundii, resistant to cefoxitin, but sensitive to all other antibiotics. H and H 15 and 47, platelet count 252, white count of 14. BUN 64, creatinine 2.2 on the day of discharge, had creatinine of 3.16 on the 09 of May, BUN of 82 on the 10 of May. HbA1c 6.4. Total cholesterol 165, triglycerides 137, LDL 118, and HDL 20. Troponin-I peaking up to 20.1 on the . CK-MB peaking up to 32.8 on the 06 of May. COVID-19 PCR was not detected on 05/06/2020. DISCHARGE MEDICATIONS: 1. Plavix 75 mg p.o. daily. 2. Aspirin 81 mg p.o. daily. 3. Vitamin D3 once weekly. 4. Coreg 6.25 mg twice daily. 5. DuoNeb q.6 hourly p.r.n. 6. Eliquis 2.5 mg twice daily. 7. Folic acid 1 mg daily. 8. NPH insulin 8 units subcu daily. 9. Lasix 40 mg p.o. q.a.m. 10. Lipitor 40 mg p.o. at bedtime. 11. MiraLAX 17 g daily. 12. Omnicef 300 mg p.o. daily for a total of 6 days. 13. Prednisone 5 mg p.o. daily for 5 days and to discontinue. 14. Multivitamin 1 tablet once daily. 15. Senokot S 1 tablet twice daily. 16. Vitamin B12 of 1000 mcg p.o. daily. ALLERGIES: TO CODEINE AND PENICILLIN. DISCHARGE PLAN: The patient to follow up with Dr. Figueroa in 10 days. He needs to follow up with primary care physician in 1 week. BRIEF COURSE DURING HOSPITALIZATION: The patient initially was brought as a STEMI alert with anterolateral wall IN to emergency room. He was taken for cardiac cath by Dr. Figueroa. The findings of coronary angiogram have been described above. Essentially, the patient had diffuse disease of LAD with multivessel disease with ejection fraction of 20% for medical management. He has had consultation with Dr. Loredo for Cardiothoracic Surgery as well. The patient had completed his anteroapical infarct and the target vessel was not a very good target to begin with, and conservative management was done for his STEMI. He has had gentle diuresis done initially, which resulted in acute on chronic renal failure. His acute kidney injury is slowly resolving at present. He has had severe deconditioning and is slowly ambulating with a rolling walker. His medications have been optimized. He had moderate persistent asthma flare up and was placed on steroids and antibiotics. He has had urinary tract infection as well, which is resolving at the time of discharge. The patient is being discharged to inpatient rehab for further recuperation prior to going home. He has severe decrease in LV ejection fraction and has had placement of a LifeVest. He is cleared for discharge by all specialists. A total of 35 minutes was spent on discharge plan. Please see a [id number] documentation for the day of discharge on [facility]. Job ID: [id number] [facility]
== END 2020-05-17 15:30 | DRG 280 ==
LOC: ERS 14:12 → CCL 14:50 → CCU 05-06 06:39 → 2NO 05-13 14:02
PROVIDERS: ADMIT Internal Medicine Cardiovascular Disease; ATTEND Internal Medicine
PROC: 4A023N7 Measurement of Cardiac Sampling and Pressure, Left Heart, Percutaneous Approach (ICD-10-PCS; principal; 2020-05-05)
PROC: B2151ZZ Fluoroscopy of Left Heart using Low Osmolar Contrast (ICD-10-PCS; 2020-05-05)
PROC: B2111ZZ Fluoroscopy of Multiple Coronary Arteries using Low Osmolar Contrast (ICD-10-PCS; 2020-05-05)
PROC: 0T9B70Z Drainage of Bladder with Drainage Device, Via Natural or Artificial Opening (ICD-10-PCS; 2020-05-10)
PROC: 5A09357 Assistance with Respiratory Ventilation, Less than 24 Consecutive Hours, Continuous Positive Airway Pressure (ICD-10-PCS; 2020-05-10)
DX: I21.01 ST elevation (STEMI) myocardial infarction involving left main coronary artery (principal); I50.23 Acute on chronic systolic (congestive) heart failure; J96.01 Acute respiratory failure with hypoxia; I13.0 Hypertensive heart and chronic kidney disease with heart failure and stage 1 through stage 4 chronic kidney disease, or unspecified chronic kidney disease; N17.9 Acute kidney failure, unspecified; I48.11 Longstanding persistent atrial fibrillation; N18.4 Chronic kidney disease, stage 4 (severe); E87.2 Acidosis; J44.1 Chronic obstructive pulmonary disease with (acute) exacerbation; J45.41 Moderate persistent asthma with (acute) exacerbation; Z51.5 Encounter for palliative care; Z20.828 Contact with and (suspected) exposure to other viral communicable diseases; E78.5 Hyperlipidemia, unspecified; M19.90 Unspecified osteoarthritis, unspecified site; R73.03 Prediabetes; E78.00 Pure hypercholesterolemia, unspecified; J98.01 Acute bronchospasm; I25.5 Ischemic cardiomyopathy; M54.5 Low back pain; G89.29 Other chronic pain; I48.0 Paroxysmal atrial fibrillation; R73.02 Impaired glucose tolerance (oral); E66.9 Obesity, unspecified; G47.33 Obstructive sleep apnea (adult) (pediatric); I25.118 Atherosclerotic heart disease of native coronary artery with other forms of angina pectoris; R73.9 Hyperglycemia, unspecified; K59.00 Constipation, unspecified; Z95.5 Presence of coronary angioplasty implant and graft; Z98.1 Arthrodesis status; Z79.01 Long term (current) use of anticoagulants; Z79.899 Other long term (current) drug therapy; Z88.0 Allergy status to penicillin; Z88.5 Allergy status to narcotic agent; Z86.73 Personal history of transient ischemic attack (TIA), and cerebral infarction without residual deficits; Z90.49 Acquired absence of other specified parts of digestive tract; Z68.31 Body mass index [BMI] 31.0-31.9, adult; Z85.46 Personal history of malignant neoplasm of prostate
CPT/HCPCS: 36415; 36416; 71045; 74018; 80048; 80053; 80061; 81001; 82550; 82553; 82805; 83036; 83735; 84484; 85007; 85014; 85018; 85025; 85027; 85347; 85610; 85730; 86850; 86900; 86901; 87077; 87086; 87186; 87635; 93005; 93010; 93306; 93458; 94640; 94660; 96374; 96375; 96376; J0696; J1160; J1644; J1815; J1940; J2270; J2920; J3475; J3490; J7512; J7620; Q0162; Q9967; S0028; U0003

== ENCOUNTER 2020-05-30 10:54 | Inpatient (IN) | payer MEDICARE, BC ==
[2020-05-30] MEDS ORDERED: Magnesium 2 GM/50 ML BAG (IN WATER) ONE (11:15)
[2020-05-30] MEDS ORDERED: Digoxin 0.5 MG/2 ML AMP ONE (11:16)
[2020-05-30 11:42] LABS: #Basophils 0.1 thou/uL (0.0-0.2); #Lymphocytes 0.8 thou/uL (1.20-3.40); #Monocytes 0.6 thou/uL (0.11-0.59); #Neutrophils 7.4 thou/uL (1.40-6.50); %Basophils 0.6 % (0.0-1.0); %Eosinophils 0.5 % (0.0-10.0); %Lymphocytes 9.4 % (21.0-51.0); %Monocytes 6.3 % (0.0-10.0); %Neutrophils 83.2 % (42.0-75.0); Hemoglobin 14.2 g/dL (14.0-18.0); Mean Corpuscular HGB CONC 32.1 g/dL (32.0-36.0); Mean Corpuscular Hemoglobin 29.4 pg (27.0-31.0); Mean Corpuscular Volume 91.5 fL (78.0-98.0); Platelet Count 171 thou/uL (130-400); RBC Distribution Width 12.1 % (11.5-14.5); Red Blood Cell (RBC) Count 4.83 mill/uL (4.70-6.10); White Blood Cell (WBC) Count 8.9 thou/uL (4.8-10.8)
[2020-05-30 11:59] LABS: ALT (SGPT) 36 U/L (8-55); AST (SGOT) 25 U/L (5-34); Albumin 3.7 g/dL (3.4-4.8); Alkaline Phosphatase 77 U/L (40-110); Anion Gap 18 mmol/L (10-20); BUN (Urea Nitrogen) 40 mg/dL (8.4-25.7); Bilirubin, Total 1.5 mg/dL (0.2-1.2); CK (CPK) 82 U/L (30-200); Calc. Creatinine Clearance 0 mL/min (70-130); Carbon Dioxide 21 mmol/L (23-31); Chloride 106 mmol/L (98-107); Estimated GFR-MDRD 25; Globulin 2.8 g/dL (2.4-3.5); Glucose 199 mg/dL (83-110); Lipase 27 U/L (8-78); Potassium 4.6 mmol/L (3.5-5.1); Protein, Total 6.5 g/dL (5.8-8.1); Sodium 140 mmol/L (136-145)
[2020-05-30] MEDS ORDERED: Furosemide 40 MG/4 ML VIAL ONE (12:15)
--- NOTE | 2020-05-30 12:32 | RAD ---
PORTABLE CHEST 1 VIEW: Date: 05/30/2020 Time: 1159 hours HISTORY: Chest pain, shortness of breath, COPD, atrial fibrillation. COMPARISON: 05/09/2020. FINDINGS/IMPRESSION: The heart size is prominent but stable. The aorta is tortuous. There are small bilateral pleural effu sions and atelectatic change/infiltrate at the left lung base. No pneumothoraces are seen. POS: [facility]
[2020-05-30 12:34] LABS: CKMB 7.7 ng/mL (0-6.6)
--- NOTE | 2020-05-30 13:41 | PDOC.HHP ---
Hospitalist HPI - History of Present Illness Shortness of breath History of Present Illness: Mr. Yousif is a 79-year-old male with a past medical history of CHF with EF of 20%, LifeVest, CKD, asthma, hypertension, glucose intolerance, coronary artery disease, chronic atrial fibrillation on Eliquis, recent admission at the beginning of May for STEMI which was medically managed who presents to the emergency room for shortness of breath. Patient reports that he was just discharged from rehab 2 days ago, however this morning at approximately 3 AM he woke up with worsening shortness of breath. Patient reports that his breathing was more difficult when lying down and felt better when sitting up. He denies any chest pain, palpitations at this time. Denies lightheadedness, changes in vision, numbness, weakness. Patient reports his lower extremities have become more swollen in the past few days and he feels as though he has more fluid on him. Patient follows with Dr. Figueroa of cardiology. Patient denies cough, fever/night sweats or chills. Denies any known Covid contacts. Emergency room initial vital signs 124/83, 124, 18, 98.4, 97% on room air. EKG showed atrial fibrillation with rapid ventricular rate of 124. Initial troponin 0 0.342, CK-MB 7.7. BNP elevated 2418, BUN/CR 40/2.49. Sodium 140, potassium 4.6. H&H 14.2/44.2, WBC 8.9. Chest x-ray showed small bilateral pleural effusions. D-dimer 0.51. Patient received 40 mg of Lasix IV, digoxin, diltiazem, magnesium and 500 L of normal saline in the emergency room. Hospitalist ROS - Review of Systems Constitutional: denies: fever, chills, sweats, weakness, malaise, other Eyes: denies: pain, vision change, conjunctivae inflammation, eyelid inflammation, redness, other ENT: denies: ear pain, ear discharge, nose pain, nose discharge, nose congestion, mouth pain, mouth swelling, throat pain, throat swelling, other Respiratory: denies: cough, dry, shortness of breath, hemoptysis, SOB with excertion, pleuritic pain, sputum, wheezing, other Cardiovascular: reports: orthopnea, edema. denies: chest pain, palpitations, light headedness Gastrointestinal: denies: nausea, vomiting, abdominal pain, diarrhea, constipation, melena, hematochezia, other Genitourinary: denies: dysuria, frequency, incontinence, hematuria, retention, other Musculoskeletal: denies: neck pain, shoulder pain, arm pain, back pain, hand pain, leg pain, foot pain, other Skin: denies: rash, lesions, beverley, bruising, other Neurological: denies: weakness, numbness, incoordination, change in speech, confusion, seizures, other - Medication Medications: Home medications include Albuterol inhaler Atorvastatin 40 mg Prednisone 5 mg Eliquis 2.5 mg twice daily NPH 8 units subcutaneous daily Aspirin 81 mg Carvedilol 6.25 mg Plavix 75 mg Vitamin B12 Vitamin D 2 Folic acid Furosemide 40 mg daily Multivitamin Patient reports allergy to penicillins which she gets hives, and codeine for which he gets itchy. Patient has received morphine without problems during last admission. Hospitalist History - Past Medical History Other Medical History: Past medical history includes Congestive heart failure with EF of 20%, LifeVest STEMI on May 06, 2020 which was medically managed Moderate persistent asthma Hypertension Hyperlipidemia Coronary artery disease Chronic atrial fibrillation on Eliquis History of prostate cancer Steroid induced glucose intolerance - Past Surgical History Other Surgical History: Past surgical history significant for Cardiacs catheterization in May 2020 Remote cardiac stenting Neck surgery Back surgery Cholecystectomy - Family History Other Family History: Patient denies past family history of heart disease, diabetes or cancer. - Social History Smoking Status: Never smoker Alcohol: reports: None Drugs: reports: none Living Situation: With Family Activity level: independent ambulation - Exam General Appearance: NAD, awake alert Eye: PERRL ENT: normocephalic atraumatic, no oropharyngeal lesions, moist mucosa Neck: supple, symmetric, no thyromegaly, no lymphadenopathy, no carotid bruit, JVD Heart: normal peripheral pulses, irregular, murmur present Respiratory - other findings: Crackles at bases Gastrointestinal: soft, non-tender, non-distended, normal bowel sounds, no palpable masses, no hepatomegaly, no splenomegaly, no bruit Extremities: 2+ LE edema Extremities - other findings: Severe pitting edema bilaterally Skin: normal turgor, no lesions, no rashes Neurological: cranial nerve grossly intact, normal sensation to touch, no weakness, no focal deficits, no new deficit Musculoskeletal: normal tone, normal strength, no muscle wasting Psychiatric: normal affect, normal behavior, A&O x 3 Hospitalist Results - Labs Result Diagrams: 05/30/20 11:26 05/30/20 11:26 Lab results: WBC 8.9 thou/uL (4.8-10.8) 05/30/20 11:26 Hgb 14.2 g/dL (14.0-18.0) 05/30/20 11:26 Hct 44.2 % (42.0-52.0) 05/30/20 11:26 MCV 91.5 fL (78.0-98.0) 05/30/20 11:26 Plt Count 171 thou/uL (130-400) 05/30/20 11:26 Neutrophils % 83.2 % (42.0-75.0) H 05/30/20 11:26 Sodium 140 mmol/L (136-145) 05/30/20 11:26 Potassium 4.6 mmol/L (3.5-5.1) 05/30/20 11:26 Chloride 106 mmol/L (98-107) 05/30/20 11:26 Carbon Dioxide 21 mmol/L (23-31) L 05/30/20 11:26 BUN 40 mg/dL (8.4-25.7) H 05/30/20 11:26 Creatinine 2.49 mg/dL (0.7-1.3) H 05/30/20 11:26 Glucose 199 mg/dL (83-110) H 05/30/20 11:26 Calcium 9.0 mg/dL (7.8-10.44) 05/30/20 11:26 Total Bilirubin 1.5 mg/dL (0.2-1.2) H 05/30/20 11:26 AST 25 U/L (5-34) 05/30/20 11:26 ALT 36 U/L (8-55) 05/30/20 11:26 Alkaline Phosphatase 77 U/L (40-110) 05/30/20 11:26 Creatine Kinase 82 U/L (30-200) 05/30/20 11:26 CK-MB (CK-2) 7.7 ng/mL (0-6.6) H* 05/30/20 11:26 Troponin I 0.342 ng/mL (< 0.028) H* 05/30/20 11:26 B-Natriuretic Peptide 2418.6 pg/mL (0-100) H 05/30/20 11:26 Serum Total Protein 6.5 g/dL (5.8-8.1) 05/30/20 11:26 Albumin 3.7 g/dL (3.4-4.8) 05/30/20 11:26 Lipase 27 U/L (8-78) 05/30/20 11:26 Hospitalist H&P A/P - Plan Plan: 79-year-old male with past medical history of CHF, STEMI in May which was treated medically, CKD, asthma, hypertension, chronic atrial fibrillation on Xarelto, remote prostate cancer, presents with shortness of breath found to be in acute CHF exacerbation after just being discharged home from rehab. Acute CHF exacerbation Acute CHF exacerbation with dyspnea and orthopnea. Significant bilateral lower extremity pitting edema. BNP elevated to 418, chest x-ray showed small bilateral pleural effusions. Patient received 40 mg of IV Lasix in the emergency room, and 500 L of normal saline. Patient's home dose of Lasix is 40 mg daily. Patient reports his breathing does feel improved since receiving Lasix. We will continue Lasix twice daily and consult cardiology. Patient is maintaining O2 sat on room air currently. Plan 40 mg Lasix twice daily Closely monitor respiratory status EF of 20% Cardiology consulted, recommendations appreciated Atrial fibrillation with rapid ventricular rate Patient presented in atrial fibrillation with rapid ventricular rate to 124. In emergency room patient received digoxin as well as 10 mg of diltiazem and magnesium. Patient's ventricular rate improved and now well controlled in the 80s. Is on home carvedilol 6.25 mg. Patient also on Eliquis twice daily. Plan Continue home carvedilol 6.25 mg Telemetry monitoring -TSH, Mg Continue home Eliquis twice daily Cardiology consulted Coronary artery disease History of severe coronary artery disease with remote history of [place] and cardiac stent at [facility] years ago and more recently STEMI on 05/05/2020 requiring urgent catheterization revealing multivessel coronary artery disease. Patient unfortunately not surgical candidate and was medically managed. Patient has an ejection fraction of 20% and has a LifeVest in place patient reports that this has not gone off. Plan Continue aspirin, Plavix Continue Xarelto Continue Lasix and carvedilol Cardiology consulted Moderate persistent asthma History of moderate persistent asthma. Patient on steroid taper for acute asthma exacerbation on prior admission. Patient on home albuterol inhalers. Will offer albuterol inhalers and duo nebs as needed. Maintaining O2 saturation well. No wheezing on exam. Plan Albuterol inhaler every 2 as needed DuoNebs every 4 as needed Chronic kidney disease History of chronic kidney disease. Baseline creatinine appears to be about 2. BUN/CR today 40/2.49. Potassium 4.6. GFR 25. Plan Monitor kidney function Avoid nephrotoxic agents when possible Renal dosing as appropriate Glucose intolerance Patient with glucose intolerance secondary to steroid administration during recent prolonged admission for NSTEMI complicated by acute asthma/COPD exacerbation. Recent rehab notes that patient is still on 5 mg of prednisone daily. Patient is now on daily insulin. Will closely monitor blood sugars place patient on sliding scale insulin and decrease prednisone to 2.5 mg daily. Plan Insulin sliding scale, carb consistent diet, ACHS glucose checks Continue prednisone taper reduce to 2.5 mg daily Hypertension History of hypertension on Cardizem, Lasix. Patient normotensive in emergency room. We will continue medications. Hyperlipidemia History of hyperlipidemia patient on atorvastatin 40 mg daily. We will continue. DVT prophylaxison Morales Full code patient has named his sons as his medical decision-makers Case discussed with Dr. Dela Cruz.
[2020-05-30 15:10] VITALS: BMI 30.4
[2020-05-30 15:21] LABS: Troponin I 0.357 ng/mL (< 0.028)
[2020-05-30] MEDS: Furosemide 40 MG/4 ML VIAL SLOW IVP SCH (16:13)
[2020-05-30 17:52] LABS: Troponin I 0.466 ng/mL (< 0.028)
[2020-05-30] MEDS ORDERED: Dextrose 50% Abboject 50 ML SYRINGE SLOW IVP PRN (18:27)
[2020-05-30] MEDS ORDERED: HumaLOG 300 UNITS/3 ML VIAL SC PRN (18:27)
[2020-05-30] MEDS ORDERED: Dextrose 5% in Water 1,000 ML IV PRN (18:27)
--- NOTE | 2020-05-30 20:30 | CON ---
DATE OF CONSULTATION: INDICATION FOR CONSULTATION: A 79-year-old gentleman with a cardiomyopathy, which is ischemic cardiomyopathy, who was recently seen, was discharged approximately 10 days ago. I recently saw this gentleman when he was on his last admission. He was just discharged on 05/18 and presents again now 05/30 with some of the same symptoms that he had when he was admitted the very 1st time on 05/06. He is a 79-year-old gentleman, who suffered a relatively large anterolateral myocardial infarction. When he arrived on 05/06/2020, he was still having chest pain and then significant shortness of breath with EKG changes, and he was taken to the cardiac environmental laboratory technician, where he was found to have left main stenosis, severe three-vessel disease with severe stenosis in multiple areas of the left anterior descending artery. CT Surgery was consulted, who did not feel he was good candidate at this time to undergo bypass surgery. He was treated medically. He was then discharged to rehab and actually did very well on rehab and was discharged from the rehab just two days ago. This morning, he developed more chest pain and shortness of breath like he had had on his previous admission and was admitted again to the hospital. His cardiac enzymes are slightly elevated. However, on the last admission, his peak troponin I was up to 20.15 and then started to decline again. It is possible he had suffered a larger anterior myocardial infarction even prior to being admitted, which was most likely somewhat silent at that time because enzymes did not approach to severe level as one would expect from a large anterior myocardial infarction. At this time, his enzymes probably are still trending downward. His troponin I was 0.34 and then 0.35 and 0.46, not any significant increased for a new myocardial infarction. At this time, he is more stable. He is on a nebulizer at this time and is able to converse without problems and is having no complaints of chest pain at this time. His BUN and creatinine are elevated. On his last admission, it was noted that he did develop acute on chronic renal insufficiency. His creatinine now is 2.49. He has not been very good candidate for SAE inhibitors or Aldactone, but has been on beta-blockers as well as Eliquis and also had received a LifeVest on his last admission. PAST MEDICAL HISTORY: Significant for the coronary artery disease, myocardial infarction. He has had bilateral inguinal hernia repairs. He has had angioplasty and stent placement. He has had a prostatectomy. He has had cataract surgery. He has had prostate cancer. He had a left rotator cuff repair at C3 through C5 spinal fusion. He has had other neck surgery for nerve entrapment in the neck. He has had bilateral inguinal hernia repairs and history of arthritis. SOCIAL HISTORY: He is . He has children, who are alive and well and have no heart disease. He has no history of tobacco abuse. He has occasional alcohol use. He is retired. ALLERGIES: HE IS ALLERGIC TO PENICILLIN, CODEINE, AND MORPHINE. FAMILY HISTORY: Noncontributory. REVIEW OF SYSTEMS: A 12-point review of systems as noted in the history of present illness. Otherwise, there were no significant new complaints. MEDICATIONS: On discharge include 1. Plavix 75 mg a day. 2. Aspirin 81 mg a day. 3. Vitamin D3 once a week. 4. Coreg 6.25 mg b.i.d. 5. DuoNebs q.6 hours. 6. Eliquis 2.5 mg b.i.d. 7. Folic acid 1 mg a day. 8. NPH insulin as well as Lasix 40 mg a day. 9. Lipitor 40 mg q.p.m. 10. MiraLAX. 11. Omnicef for total of 6 days. He should have completed this by now. 12. He was also on a short dose of prednisone as well as multivitamins, Senokot, and vitamin B12. PHYSICAL EXAMINATION: GENERAL: Reveals an elderly gentleman, who is in no acute distress at this time. He is alert. He is oriented. VITAL SIGNS: Show blood pressure of 126/95, heart rate is in the 90s to 100s, respiratory rate is about 17 to 20. He is afebrile. HEENT: Unremarkable. He has no obvious JVD at this time. No carotid bruits were noted. CHEST: Relatively clear to auscultation. I did not hear any rales, rhonchi, or wheezing. CARDIOVASCULAR: Reveals a relatively regular rhythm at this time. Heart sounds are somewhat distant. EXTREMITIES: Show no clubbing or cyanosis. He does have 2+ lower extremity edema. Pedal pulses are difficult to palpate. NEUROLOGIC: The patient appears to be grossly intact. LABORATORY DATA: Show a troponin as noted above at 0.466, it is a peak that we have seen today at 5 o'clock. Sodium is 140, potassium 4.6, BUN was 40 with a creatinine of 2.49, bicarb was 21, blood sugar was 199. WBC of 8.9, hemoglobin 14.2, and hematocrit 44.2, and platelet count of 171,000. His EKG shows an irregular rhythm, at times almost appears to be regular, but it does appear to be underlying atrial fibrillation. There is evidence of an old inferior myocardial infarction and EKG changes compatible with also most likely an anterolateral myocardial infarction with Q waves and diffuse ST-segment changes. IMPRESSION: 1. Elderly gentleman with history of ischemic cardiomyopathy with repeat episode of chest pain. He has a severe 3-vessel coronary artery disease. He is probably not most likely a candidate for bypass surgery. We can rediscuss this with the CT surgeons once the patient becomes more stable. He does have poor targets for bypass surgery. We will continue to treat him medically at this time. He is not a candidate for SAE inhibitors due to the renal insufficiency. We will continue to treat him with other medications as possible. 2. History of hypertension. This is stable at this time. 3. Atrial fibrillation. We will continue the Eliquis. His rate is under relatively good control at this time. We will continue to monitor the patient very carefully for any further changes. Job ID: [id number]
[2020-05-30] MEDS: Apixaban 2.5 MG TAB PO SCH (21:19)
[2020-05-30] MEDS: Atorvastatin Calcium 40 MG TAB PO SCH (21:19)
[2020-05-30] MEDS: Senokot S 8.6-50 MG TAB PO SCH (21:19)
[2020-05-30] MEDS: Carvedilol 6.25 MG TAB PO SCH (21:20)
[2020-05-31 04:57] LABS: #Eosinphils 0.1 thou/uL (0.0-0.7); #Lymphocytes 1.2 thou/uL (1.20-3.40); #Monocytes 0.7 thou/uL (0.11-0.59); #Neutrophils 4.7 thou/uL (1.40-6.50); %Basophils 0.3 % (0.0-1.0); %Eosinophils 2.2 % (0.0-10.0); %Lymphocytes 17.3 % (21.0-51.0); %Neutrophils 70.2 % (42.0-75.0); Hemoglobin 12.7 g/dL (14.0-18.0); Mean Corpuscular HGB CONC 32.6 g/dL (32.0-36.0); Mean Corpuscular Hemoglobin 30.1 pg (27.0-31.0); Mean Corpuscular Volume 92.2 fL (78.0-98.0); Mean Platelet Volume 8.8 fL (7.4-10.4); Platelet Count 145 thou/uL (130-400); RBC Distribution Width 11.8 % (11.5-14.5); Red Blood Cell (RBC) Count 4.23 mill/uL (4.70-6.10); White Blood Cell (WBC) Count 6.6 thou/uL (4.8-10.8)
[2020-05-31 05:22] LABS: Digoxin 0.78 ng/mL (0.8-2.0)
[2020-05-31 05:23] LABS: Anion Gap 14 mmol/L (10-20); BUN (Urea Nitrogen) 35 mg/dL (8.4-25.7); Calc. Creatinine Clearance 33 mL/min (70-130); Calcium 8.3 mg/dL (7.8-10.44); Carbon Dioxide 25 mmol/L (23-31); Chloride 104 mmol/L (98-107); Estimated GFR-MDRD 27; Glucose 145 mg/dL (83-110); Sodium 139 mmol/L (136-145)
[2020-05-31] MEDS: Furosemide 40 MG/4 ML VIAL SLOW IVP SCH ×2 (05:39→13:25)
[2020-05-31] MEDS: Senokot S 8.6-50 MG TAB PO SCH (08:41)
[2020-05-31] MEDS: Aspirin Chewable 81 MG TAB PO SCH (08:41)
[2020-05-31] MEDS: Polyethylene Glycol 3350 17 GM Packet PO SCH (08:41)
[2020-05-31] MEDS: Clopidogrel Bisulfate 75 MG TAB PO SCH (08:41)
[2020-05-31] MEDS: Carvedilol 6.25 MG TAB PO SCH (08:41)
[2020-05-31] MEDS: Folic Acid 1 MG TAB PO SCH (08:41)
[2020-05-31] MEDS: Cyanocobalamin (Vitamin B-12) 1,000 MCG TAB PO SCH (08:41)
[2020-05-31] MEDS: Apixaban 2.5 MG TAB PO SCH (08:41)
--- NOTE | 2020-05-31 10:58 | PDOC.CPN ---
- Subjective Date: 05/31/20 Time: 10:57 Interval history: Patient doing well this morning, he states he is feeling much better this morning and slept well last night, he remains in atrial fibrillation, he denies any chest pain, shortness of breath or palpitations. He has a visitor this morning, he is sitting up in bed with his BLE elevated. - Review of Systems General: denies: fever/chills, weight/appetite/sleep changes, night sweats, fatigue Respiratory: denies: cough, congestion, shortness of breath, exercise intolerance Cardiovascular: denies: chest pain, palpitation, edema, paroxysmal nocturnal dyspnea, orthopnea Gastrointestinal: denies: nausea, vomiting, diarrhea, constipation, abd pain, GI bleeding Musculoskeletal: reports: swelling (BLE edema) Neurological: denies: numbness, syncope, seizure, weakness - Objective Allergies/Adverse Reactions: Allergies Allergy/AdvReac Type Severity Reaction Status Date / Time codeine Allergy Verified 05/05/20 16:11 Penicillins Allergy Verified 05/05/20 20:32 Visit Medications: Current Medications Albuterol/Ipratropium (Ipratropium/Albuterol Sulfate 3 Ml Neb) 3 ml NEB [id number] [facility] Last Admin: 05/31/20 08:19 Dose: 3 ml Documented by: Apixaban (Apixaban 2.5 Mg Tab) 2.5 mg PO BID [facility] Last Admin: 05/31/20 08:41 Dose: 2.5 mg Documented by: Aspirin (Aspirin Chewable 81 Mg Tab) 81 mg PO DAILY [facility] Last Admin: 05/31/20 08:41 Dose: 81 mg Documented by: Atorvastatin Calcium (Atorvastatin Calcium 40 Mg Tab) 40 mg PO HS [facility] Last Admin: 05/30/20 21:19 Dose: 40 mg Documented by: Carvedilol (Carvedilol 6.25 Mg Tab) 6.25 mg PO BID [facility] Last Admin: 05/31/20 08:41 Dose: 6.25 mg Documented by: Clopidogrel Bisulfate (Clopidogrel Bisulfate 75 Mg Tab) 75 mg PO DAILY [facility] Last Admin: 05/31/20 08:41 Dose: 75 mg Documented by: Cyanocobalamin (Cyanocobalamin (Vitamin B-12) 1,000 Mcg Tab) 1,000 mcg PO DAILY [facility] Last Admin: 05/31/20 08:41 Dose: 1,000 mcg Documented by: Dextrose/Water (Dextrose 50% Abboject 50 Ml Syringe) 25 gm SLOW IVP PRN PRN PRN Reason: Hypoglycemia Folic Acid (Folic Acid 1 Mg Tab) 1 mg PO DAILY [facility] Last Admin: 05/31/20 08:41 Dose: 1 mg Documented by: Furosemide (Furosemide 40 Mg/4 Ml Vial) 40 mg SLOW IVP 0600,1400 [facility] Last Admin: 05/31/20 05:39 Dose: 40 mg Documented by: Glucagon (Glucagon 1 Mg/Ml Vial) 1 mg IM PRN PRN PRN Reason: Hypoglycemia Dextrose/Water (D5w) 1,000 mls @ 0 mls/hr IV .Q0M PRN PRN Reason: Hypoglycemia Insulin Human Lispro (Humalog 300 Units/3 Ml Vial) 0 units SC .MILD SLIDING SCALE PRN PRN Reason: Mild Correctional Scale Insulin Human Lispro (Humalog 300 Units/3 Ml Vial) 0 units SC .BEDTIME SLIDING SC PRN PRN Reason: Bedtime Correctional Scale Polyethylene Glycol (Polyethylene Glycol 3350 17 Gm Packet) 17 gm PO DAILY [facility] Last Admin: 05/31/20 08:41 Dose: 17 gm Documented by: Senna/Docusate Sodium (Senokot S 8.6-50 Mg Tab) 1 tab PO BID [facility] Last Admin: 05/31/20 08:41 Dose: 1 tab Documented by: Vital Signs & Weight: Vital Signs Temp Pulse Resp BP Pulse Ox 05/31/20 08:19 79 18 05/31/20 08:00 98.8 F 74 17 109/61 94 L 05/31/20 04:00 98.4 F 97 16 100/65 94 L 05/31/20 01:03 96 05/31/20 00:50 90 16 96 Weight 204 lb 6.4 oz - Quality Measures Condition: Atrial Fibrillation/Flutter (hx or current), Coronary Artery Disease, Heart Failure CV meds: Beta Melvi: Yes, SAE/ARB: No (Renal insufficiency), Statin: Yes, ASA: Yes, Plavix/Effient/Brilinta: Yes, Anticoagulant: Yes (Eliquis ) - Medication Contraindications No SAE/ARB reason: Medical contraindication (Renal insufficiency) - Physical Exam General: alert & oriented x3, appears well, no apparent distress HEENT: mucus membranes moist, normocephaly Neck: supple neck, midline trachea, no JVD/HJR, no bruit Cardiac: irregularly regular, other (somewhat distant heart sounds, he is wearing an external Life Vest) Lungs: clear to auscultation, no wheeze, rales, rhonchi Neuro: grossly intact, motor function intact Abdomen: active bowel sounds, soft, non-tender, no masses Extremities: no cyanosis, 2+ LE edema (patient wearing compression stockings, eleavting BLE in bed with pillows) Skin: clear Musculoskeletal: normal range of motion, no pain - Labs Result Diagrams: 05/31/20 04:23 05/31/20 04:23 Troponin/CKMB CK-MB (CK-2) 7.7 ng/mL (0-6.6) H* 05/30/20 11:26 Troponin I 0.466 ng/mL (< 0.028) H* 05/30/20 17:05 - EKG Interpretation EKG Method: Telemetry EKG shows: atrial fibrillation - Assessment/Plan Assessment/Plan: 1. Ischemic cardiomyopathy with repeat episode of chest pain. His chest pain has gotten better since admission to the hospital, he denies any CP or SOB overnight or this morning. He has severe 3 vessel coronary artery disease. He is most likely not a candidate for bypass surgery. We can re-discuss with CT surgeons when patient becomes more stable. He has poor targets for bypass surgery, we will continue to treat medically at this time, He is receiving IV Lasix BID. He is not a candidate for an SAE inhibitor at this time d/t renal insufficiency. 2. History of hypertension: Well controlled at this time. BP this A.M. 109/61 3. Atrial fibrillation: He is on Eliquis, we will continue this at this time, his rate is under control at this time with a HR in the 80's. We will continue to monitor the patient very carefully for further changes.
[2020-05-31] MEDS: HumaLOG 300 UNITS/3 ML VIAL SC PRN (11:38)
--- NOTE | 2020-05-31 15:28 | PDOC.HOSPP ---
- Subjective Encounter Date: 05/31/20 Subjective: Denies any chest pain today. - Objective Vital Signs & Weight: Vital Signs (12 hours) Temp Pulse Pulse Pulse Resp BP BP 05/31/20 13:35 98 16 05/31/20 11:53 98.7 F 102 H 17 05/31/20 10:58 86 106 H 115/77 124/78 05/31/20 08:19 79 18 05/31/20 08:00 98.8 F 74 17 05/31/20 04:00 98.4 F 97 16 BP Pulse Ox Pulse Ox Pulse Ox 05/31/20 13:35 05/31/20 11:53 124/78 97 05/31/20 10:58 94 L 97 05/31/20 08:19 05/31/20 08:00 109/61 94 L 05/31/20 04:00 100/65 94 L Weight Weight 204 lb 6.4 oz I&O: 05/30/20 05/31/20 06/01/20 06:59 06:59 06:59 Intake Total 440 Output Total 1240 Balance -800 Result Diagrams: 05/31/20 04:23 05/31/20 04:23 Additional Labs: Accuchecks 05/31/20 05/30/20 05/30/20 10:52 20:20 17:14 POC Glucose 182 H 185 H 177 H Hospitalist ROS - Medication Medications: Active Medications Generic Name Dose Route Start Last Admin Trade Name Freq PRN Reason Stop Dose Admin Albuterol/Ipratropium 3 ml 05/30/20 19:00 05/31/20 13:35 Ipratropium/Albuterol Sulfate 3 Ml Neb NEB 3 ml [id number] SAUD Administration Apixaban 2.5 mg 05/30/20 21:00 05/31/20 08:41 Apixaban 2.5 Mg Tab PO 2.5 mg BID [facility] Administration Aspirin 81 mg 05/31/20 09:00 05/31/20 08:41 Aspirin Chewable 81 Mg Tab PO 81 mg DAILY [facility] Administration Atorvastatin Calcium 40 mg 05/30/20 21:00 05/30/20 21:19 Atorvastatin Calcium 40 Mg Tab PO 40 mg HS [facility] Administration Carvedilol 6.25 mg 05/30/20 21:00 05/31/20 08:41 Carvedilol 6.25 Mg Tab PO 6.25 mg BID [facility] Administration Clopidogrel Bisulfate 75 mg 05/31/20 09:00 05/31/20 08:41 Clopidogrel Bisulfate 75 Mg Tab PO 75 mg DAILY [facility] Administration Cyanocobalamin 1,000 mcg 05/31/20 09:00 05/31/20 08:41 Cyanocobalamin (Vitamin B-12) 1,000 Mcg Tab PO 1,000 mcg DAILY [facility] Administration Folic Acid 1 mg 05/31/20 09:00 05/31/20 08:41 Folic Acid 1 Mg Tab PO 1 mg DAILY [facility] Administration Furosemide 40 mg 05/30/20 14:00 05/31/20 13:25 Furosemide 40 Mg/4 Ml Vial SLOW IVP 40 mg 0600,1400 [facility] Administration Insulin Human Lispro 0 units 05/30/20 18:27 05/31/20 11:38 Humalog 300 Units/3 Ml Vial SC 2 unit .MILD SLIDING SCALE PRN Administration Mild Correctional Scale Polyethylene Glycol 17 gm 05/31/20 09:00 05/31/20 08:41 Polyethylene Glycol 3350 17 Gm Packet PO 17 gm DAILY ASUD Administration Senna/Docusate Sodium 1 tab 05/30/20 21:00 05/31/20 08:41 Senokot S 8.6-50 Mg Tab PO 1 tab BID [facility] Administration - Exam General Appearance: awake alert ENT: normocephalic atraumatic Neck: supple, no JVD Heart: RRR Respiratory: normal chest expansion, no tachypnea Gastrointestinal: soft Neurological: cranial nerve grossly intact, no focal deficits Hosp A/P (1) Ischemic cardiomyopathy Code(s): I25.5 - ISCHEMIC CARDIOMYOPATHY Status: Acute (2) CAD (coronary artery disease) Code(s): I25.10 - ATHSCL HEART DISEASE OF [place] CORONARY ARTERY W/O ANG PCTRS Status: Acute Qualifiers: Coronary Disease-Associated Artery/Lesion type: [place] artery [place] vs. transplanted heart: [place] heart Associated angina: with stable angina Qualified Code(s): I25.118 - Atherosclerotic heart disease of [place] coronary artery with other forms of angina pectoris (3) Afib Code(s): I48.91 - UNSPECIFIED ATRIAL FIBRILLATION Status: Chronic Qualifiers: Atrial fibrillation type: longstanding persistent Qualified Code(s): I48.11 - Longstanding persistent atrial fibrillation (4) Dyslipidemia Code(s): E78.5 - HYPERLIPIDEMIA, UNSPECIFIED Status: Chronic (5) HTN (hypertension) Code(s): I10 - ESSENTIAL (PRIMARY) HYPERTENSION Status: Chronic Qualifiers: Hypertension type: essential hypertension Qualified Code(s): I10 - Essential (primary) hypertension - Plan Chest pain likely due to severe multivessel coronary artery disease. Patient is a poor candidate for bypass surgery. Continue medical management per cardiology. The patient saturating well on room air. Change Lasix to 40 mg orally daily. Check BMP in the morning. Appreciate cardiology.
[2020-06-01] MEDS: Senokot S 8.6-50 MG TAB PO SCH ×3 (04:23→20:17)
[2020-06-01] MEDS: Carvedilol 6.25 MG TAB PO SCH ×3 (04:23→20:15)
[2020-06-01] MEDS: Apixaban 2.5 MG TAB PO SCH ×3 (04:23→20:16)
[2020-06-01] MEDS: Atorvastatin Calcium 40 MG TAB PO SCH ×2 (04:23→20:16)
[2020-06-01 04:38] LABS: #Eosinphils 0.2 thou/uL (0.0-0.7); #Lymphocytes 1.4 thou/uL (1.20-3.40); #Monocytes 0.6 thou/uL (0.11-0.59); #Neutrophils 3.6 thou/uL (1.40-6.50); %Basophils 0.6 % (0.0-1.0); %Eosinophils 3.6 % (0.0-10.0); %Lymphocytes 23.5 % (21.0-51.0); %Neutrophils 61.4 % (42.0-75.0); Hemoglobin 13.3 g/dL (14.0-18.0); Mean Corpuscular HGB CONC 32.8 g/dL (32.0-36.0); Mean Corpuscular Hemoglobin 30.1 pg (27.0-31.0); Mean Corpuscular Volume 91.6 fL (78.0-98.0); Mean Platelet Volume 8.7 fL (7.4-10.4); Platelet Count 153 thou/uL (130-400); Red Blood Cell (RBC) Count 4.42 mill/uL (4.70-6.10); White Blood Cell (WBC) Count 5.8 thou/uL (4.8-10.8)
[2020-06-01 05:09] LABS: Anion Gap 16 mmol/L (10-20); BUN (Urea Nitrogen) 37 mg/dL (8.4-25.7); Calc. Creatinine Clearance 35 mL/min (70-130); Calcium 8.5 mg/dL (7.8-10.44); Carbon Dioxide 25 mmol/L (23-31); Chloride 102 mmol/L (98-107); Estimated GFR-MDRD 29; Glucose 145 mg/dL (83-110); Potassium 3.9 mmol/L (3.5-5.1); Sodium 139 mmol/L (136-145)
[2020-06-01] MEDS: Furosemide 40 MG TAB PO SCH (08:17)
--- NOTE | 2020-06-01 09:36 | PDOC.CPN ---
- Subjective Date: 06/01/20 Time: 08:15 Interval history: No overnight events, he remains in Atrial fibrillation, rate maintained 80's-100 throughout the night. He has no new complaints today, he states he is starting to feel better today, she states he is still having some edema to his BLE. Den ies chest pain, shortness of breath, dyspnea on exertion, trouble breathing, palpitations, or dizziness. - Review of Systems General: denies: fever/chills, weight/appetite/sleep changes, night sweats, fatigue Respiratory: denies: cough, congestion, shortness of breath, exercise intolerance Cardiovascular: denies: chest pain, palpitation, edema, paroxysmal nocturnal dyspnea, orthopnea Gastrointestinal: denies: nausea, vomiting, diarrhea, constipation, abd pain, GI bleeding Musculoskeletal: reports: swelling (edema to BLE). denies: pain, tenderness, stiffness, arthritis/arthralgias Neurological: denies: numbness, syncope, seizure, weakness - Objective Allergies/Adverse Reactions: Allergies Allergy/AdvReac Type Severity Reaction Status Date / Time codeine Allergy Verified 05/05/20 16:11 Penicillins Allergy Verified 05/05/20 20:32 Visit Medications: Current Medications Albuterol/Ipratropium (Ipratropium/Albuterol Sulfate 3 Ml Neb) 3 ml NEB [id number] [facility] Last Admin: 06/01/20 06:49 Dose: 3 ml Documented by: Apixaban (Apixaban 2.5 Mg Tab) 2.5 mg PO BID [facility] Last Admin: 06/01/20 04:23 Dose: 2.5 mg Documented by: Aspirin (Aspirin Chewable 81 Mg Tab) 81 mg PO DAILY [facility] Last Admin: 05/31/20 08:41 Dose: 81 mg Documented by: Atorvastatin Calcium (Atorvastatin Calcium 40 Mg Tab) 40 mg PO HS [facility] Last Admin: 06/01/20 04:23 Dose: 40 mg Documented by: Carvedilol (Carvedilol 6.25 Mg Tab) 6.25 mg PO BID [facility] Last Admin: 06/01/20 04:23 Dose: 6.25 mg Documented by: Clopidogrel Bisulfate (Clopidogrel Bisulfate 75 Mg Tab) 75 mg PO DAILY [facility] Last Admin: 05/31/20 08:41 Dose: 75 mg Documented by: Cyanocobalamin (Cyanocobalamin (Vitamin B-12) 1,000 Mcg Tab) 1,000 mcg PO DAILY [facility] Last Admin: 05/31/20 08:41 Dose: 1,000 mcg Documented by: Dextrose/Water (Dextrose 50% Abboject 50 Ml Syringe) 25 gm SLOW IVP PRN PRN PRN Reason: Hypoglycemia Folic Acid (Folic Acid 1 Mg Tab) 1 mg PO DAILY [facility] Last Admin: 05/31/20 08:41 Dose: 1 mg Documented by: Furosemide (Furosemide 40 Mg Tab) 40 mg PO DAILY[facility] Last Admin: 06/01/20 08:17 Dose: 40 mg Documented by: Glucagon (Glucagon 1 Mg/Ml Vial) 1 mg IM PRN PRN PRN Reason: Hypoglycemia Dextrose/Water (D5w) 1,000 mls @ 0 mls/hr IV .Q0M PRN PRN Reason: Hypoglycemia Insulin Human Lispro (Humalog 300 Units/3 Ml Vial) 0 units SC .MILD SLIDING SCALE PRN PRN Reason: Mild Correctional Scale Last Admin: 05/31/20 11:38 Dose: 2 unit Documented by: Insulin Human Lispro (Humalog 300 Units/3 Ml Vial) 0 units SC .BEDTIME SLIDING SC PRN PRN Reason: Bedtime Correctional Scale Polyethylene Glycol (Polyethylene Glycol 3350 17 Gm Packet) 17 gm PO DAILY [facility] Last Admin: 05/31/20 08:41 Dose: 17 gm Documented by: Senna/Docusate Sodium (Senokot S 8.6-50 Mg Tab) 1 tab PO BID [facility] Last Admin: 06/01/20 04:23 Dose: 1 tab Documented by: Vital Signs & Weight: Vital Signs Temp Pulse Resp BP BP BP Pulse Ox 06/01/20 08:00 97.5 F L 73 18 111/77 94 L 06/01/20 06:51 99 06/01/20 06:49 98 20 99 06/01/20 04:23 131/78 06/01/20 04:00 98.2 F 94 21 H 133/74 96 06/01/20 00:18 54 L 20 95 Weight 203 lb 4.8 oz - Quality Measures Condition: Atrial Fibrillation/Flutter (hx or current), Coronary Artery Disease, Heart Failure CV meds: Beta Melvi: Yes, SAE/ARB: No (Renal insufficiency), Statin: Yes, ASA: Yes, Plavix/Effient/Brilinta: Yes, Anticoagulant: Yes (Eliquis ) - Medication Contraindications No SAE/ARB reason: Medical contraindication (Renal insufficiency) - Physical Exam General: alert & oriented x3, appears well (he is wearing his external defi brilator. Tolerating well. No complaints), no apparent distress HEENT: mucus membranes moist Neck: supple neck, midline trachea, no JVD/HJR, no masses, no bruit Cardiac: irregularly regular Lungs: clear to auscultation, no wheeze, rales, rhonchi (able to take deeper breaths this morning) Neuro: grossly intact, motor function intact, sensory function intact Abdomen: active bowel sounds, soft, non-tender Extremities: no cyanosis, no clubbing, 2+ LE edema (wearing compression stockings. Patient sitting on side of bed this morning eatin breakfast, has been elevating BLE on pillows frequently throughout the day) Skin: clear Musculoskeletal: normal range of motion, no pain - Labs Result Diagrams: 06/01/20 04:08 06/01/20 04:08 Troponin/CKMB CK-MB (CK-2) 7.7 ng/mL (0-6.6) H* 05/30/20 11:26 Troponin I 0.466 ng/mL (< 0.028) H* 05/30/20 17:05 - EKG Interpretation EKG Method: Telemetry EKG shows: atrial fibrillation - Assessment/Plan Assessment/Plan: 1. Ischemic cardiomyopathy with repeat episode of chest pain. His chest pain has gotten better since admission to the hospital, he denies any CP or SOB overnight or this morning. He has severe 3 vessel coronary artery disease. He is most likely not a candidate for bypass surgery. We can re-discuss with CT surgeons when patient becomes more stable. He has poor targets for bypass surgery, we will continue to treat medically at this time, His IV Lasix has been changed to PO by primary service. He did have a negative fluid balance of 460 mL yesterday, he states he is feeling better and is starting to breath easier. He is not a candidate for an SAE inhibitor at this time d/t renal insufficiency. We will continue the PO Lasix for diuresis. 2. History of hypertension: Well controlled at this time. BP this A.M. 133/74. We will continue with current treatment, we will continue to hold SAE inhibitor d/t Creatinine level of 2.23 this morning. 3. Atrial fibrillation: He is on Eliquis, we will continue this at this time, his rate is under relatively reasonable control but occasionally is in th low 100's.Start amiodarone. Perhaps he will convert to sinus rhythm. If not he may need an electrical cardioversion to establish NSR. Given the severe decrease in the EF he will benefit from atrial contraction. We will continue to monitor the patient very carefully for further changes. Pt. seen and eval. by me,. I agree with the A/P by the DISC PAD KNOCKOUT WORKER and I have suggested we start amiodarone.
[2020-06-01] MEDS: Polyethylene Glycol 3350 17 GM Packet PO SCH (10:25)
[2020-06-01] MEDS: Cyanocobalamin (Vitamin B-12) 1,000 MCG TAB PO SCH (10:26)
[2020-06-01] MEDS: Clopidogrel Bisulfate 75 MG TAB PO SCH (10:26)
[2020-06-01] MEDS: Folic Acid 1 MG TAB PO SCH (10:26)
[2020-06-01] MEDS: Aspirin Chewable 81 MG TAB PO SCH (10:26)
[2020-06-01] MEDS: Amiodarone 450 MG in Dextrose 5% in Water 250 ML IVPB SCH ×2 (12:17→20:43)
[2020-06-01] MEDS: HumaLOG 300 UNITS/3 ML VIAL SC PRN (13:42)
--- NOTE | 2020-06-01 14:55 | PQF ---
CLINICAL DOCUMENTATION CLARIFICATION FORM: Dear Dr. Patel Date: 06/01/20 Please exercise your independent, professional judgment in responding to the clarification form. Clinical indicators are provided on the bottom of this form for your review. Please check appropriate box(es): HEART FAILURE: A. ACUITY [ ] Acute [ >] Acute on Chronic [ ] Chronic B. TYPE: [ >] Systolic / HFrEF [ ] Diastolic / HFpEF [ ] Combined Systolic / Diastolic [ ] Hypertensive Heart and Kidney disease [ ] Hypertensive Heart Disease [ ] Hypertensive Kidney Disease [ ] Other diagnosis [ ] Unable to determine In addition, please specify: Present on Admission (POA): [ > ] Yes [ ] No [ ] Unable to determine For continuity of documentation, please document condition throughout progress notes and discharge summary. Thank You. To be completed by CDI/Coding staff for physician review: CLINICAL INDICATORS - SIGNS / SYMPTOMS / LABS / RESULTS AND LOCATION IN EMR H&P: "ACUTE CHF EXACERBATION" BNP 418 RISKS FACTORS / RESULTS AND LOCATION IN EMR H/O CHF WITH ER 20% (H&P- Nikunj WOODY PA-C) "LOWER EXTREMITIES HAVE BECOME MORE SWOLLEN" "HE FEELS IF HE HAS MORE FLUID ON HIM" (H&PShaka WOODY PA-C) TREATMENTS / RESULTS AND LOCATION IN EMR IV LASIX (ER-05/31) PO LASIX (05/31-PRESENT) COREG (05/30-PRESENT) CARDIOLOGY CONSULT 05/30 TELEMETRY MONITORING CDS Signature: Jodee Last RN Phone #: [phone] Date: This is a permanent part of the Medical Record [facility]
--- NOTE | 2020-06-01 15:04 | PDOC.HOSPP ---
- Subjective Encounter Date: 06/01/20 Subjective: Patient denies any chest pain or shortness of breath today. - Objective Vital Signs & Weight: Vital Signs (12 hours) Temp Pulse Pulse Pulse Resp BP BP 06/01/20 12:16 105 H 20 06/01/20 10:26 131/78 06/01/20 09:18 115 H 108 H 153/67 H 06/01/20 08:00 97.5 F L 73 18 06/01/20 06:51 06/01/20 06:49 98 20 06/01/20 04:23 131/78 06/01/20 04:00 98.2 F 94 21 H BP BP BP Pulse Ox Pulse Ox Pulse Ox 06/01/20 12:16 95 06/01/20 10:26 06/01/20 09:18 124/72 98 94 L 06/01/20 08:00 111/77 95 06/01/20 06:51 99 06/01/20 06:49 99 06/01/20 04:23 06/01/20 04:00 133/74 96 Weight Weight 203 lb 4.8 oz I&O: 05/31/20 06/01/20 06/02/20 06:59 06:59 06:59 Intake Total 440 1020 Output Total 1240 1480 Balance -800 -460 Result Diagrams: 06/01/20 04:08 06/01/20 04:08 Additional Labs: Accuchecks 06/01/20 06/01/20 06/01/20 11:05 06:27 05:45 POC Glucose 206 H 138 H 148 H 05/31/20 05/31/20 21:22 17:21 POC Glucose 226 H 113 H Hospitalist ROS - Medication Medications: Active Medications Generic Name Dose Route Start Last Admin Trade Name Freq PRN Reason Stop Dose Admin Albuterol/Ipratropium 3 ml 05/30/20 19:00 06/01/20 12:16 Ipratropium/Albuterol Sulfate 3 Ml Neb NEB 3 ml [id number] SAUD Administration Apixaban 2.5 mg 05/30/20 21:00 06/01/20 10:25 Apixaban 2.5 Mg Tab PO 2.5 mg BID SAUD Administration Aspirin 81 mg 05/31/20 09:00 06/01/20 10:26 Aspirin Chewable 81 Mg Tab PO 81 mg DAILY SAUD Administration Atorvastatin Calcium 40 mg 05/30/20 21:00 06/01/20 04:23 Atorvastatin Calcium 40 Mg Tab PO 40 mg HS SAUD Administration Carvedilol 6.25 mg 05/30/20 21:00 06/01/20 10:26 Carvedilol 6.25 Mg Tab PO 6.25 mg BID SAUD Administration Clopidogrel Bisulfate 75 mg 05/31/20 09:00 06/01/20 10:26 Clopidogrel Bisulfate 75 Mg Tab PO 75 mg DAILY SAUD Administration Cyanocobalamin 1,000 mcg 05/31/20 09:00 06/01/20 10:26 Cyanocobalamin (Vitamin B-12) 1,000 Mcg Tab PO 1,000 mcg DAILY SAUD Administration Folic Acid 1 mg 05/31/20 09:00 06/01/20 10:26 Folic Acid 1 Mg Tab PO 1 mg DAILY SAUD Administration Furosemide 40 mg 06/01/20 07:30 06/01/20 08:17 Furosemide 40 Mg Tab PO 40 mg DAILY-AC SAUD Administration Amiodarone HCl 450 mg/ 259 mls @ 0 mls/hr 06/01/20 10:45 06/01/20 12:17 Dextrose/Water IVPB 259 mls INF SAUD Administration Protocol Per Protocol Insulin Human Lispro 0 units 05/30/20 18:27 06/01/20 13:42 Humalog 300 Units/3 Ml Vial SC 3 unit .MILD SLIDING SCALE PRN Administration Mild Correctional Scale Polyethylene Glycol 17 gm 05/31/20 09:00 06/01/20 10:25 Polyethylene Glycol 3350 17 Gm Packet PO Not Given DAILY SAUD Senna/Docusate Sodium 1 tab 05/30/20 21:00 06/01/20 10:27 Senokot S 8.6-50 Mg Tab PO Not Given BID SAUD - Exam General Appearance: awake alert ENT: normocephalic atraumatic Neck: supple, no JVD Respiratory: normal chest expansion, no tachypnea Extremities: no cyanosis, no clubbing Neurological: cranial nerve grossly intact Hosp A/P (1) Ischemic cardiomyopathy Code(s): I25.5 - ISCHEMIC CARDIOMYOPATHY Status: Acute (2) CAD (coronary artery disease) Code(s): I25.10 - ATHSCL HEART DISEASE OF [place] CORONARY ARTERY W/O ANG PCTRS Status: Acute Qualifiers: Coronary Disease-Associated Artery/Lesion type: [place] artery [place] vs. transplanted heart: [place] heart Associated angina: with stable angina Qualified Code(s): I25.118 - Atherosclerotic heart disease of [place] coronary artery with other forms of angina pectoris (3) Afib Code(s): I48.91 - UNSPECIFIED ATRIAL FIBRILLATION Status: Chronic Qualifiers: Atrial fibrillation type: longstanding persistent Qualified Code(s): I48.11 - Longstanding persistent atrial fibrillation (4) Dyslipidemia Code(s): E78.5 - HYPERLIPIDEMIA, UNSPECIFIED Status: Chronic (5) HTN (hypertension) Code(s): I10 - ESSENTIAL (PRIMARY) HYPERTENSION Status: Chronic Qualifiers: Hypertension type: essential hypertension Qualified Code(s): I10 - Essential (primary) hypertension - Plan Chest pain likely due to severe multivessel coronary artery disease. Patient is a poor candidate for bypass surgery. Continue medical management per cardiology. The patient saturating well on room air. Continue Lasix to 40 mg orally daily. Check BMP in the morning. Appreciate cardiology.
[2020-06-02 04:53] LABS: #Eosinphils 0.2 thou/uL (0.0-0.7); #Lymphocytes 1.6 thou/uL (1.20-3.40); #Monocytes 0.6 thou/uL (0.11-0.59); #Neutrophils 3.7 thou/uL (1.40-6.50); %Basophils 0.7 % (0.0-1.0); %Eosinophils 3.6 % (0.0-10.0); %Lymphocytes 25.4 % (21.0-51.0); %Monocytes 10.3 % (0.0-10.0); %Neutrophils 59.9 % (42.0-75.0); Hemoglobin 13.9 g/dL (14.0-18.0); Mean Corpuscular HGB CONC 32.9 g/dL (32.0-36.0); Mean Corpuscular Hemoglobin 30.2 pg (27.0-31.0); Mean Corpuscular Volume 91.6 fL (78.0-98.0); Mean Platelet Volume 8.8 fL (7.4-10.4); Platelet Count 162 thou/uL (130-400); White Blood Cell (WBC) Count 6.2 thou/uL (4.8-10.8)
[2020-06-02 05:23] LABS: Anion Gap 17 mmol/L (10-20); BUN (Urea Nitrogen) 35 mg/dL (8.4-25.7); Calc. Creatinine Clearance 36 mL/min (70-130); Calcium 8.7 mg/dL (7.8-10.44); Carbon Dioxide 22 mmol/L (23-31); Chloride 103 mmol/L (98-107); Estimated GFR-MDRD 29; Glucose 156 mg/dL (83-110); Potassium 4.1 mmol/L (3.5-5.1); Sodium 138 mmol/L (136-145)
[2020-06-02] MEDS: HumaLOG 300 UNITS/3 ML VIAL SC PRN ×3 (07:32→17:14)
[2020-06-02] MEDS: Carvedilol 6.25 MG TAB PO SCH ×2 (08:56→21:16)
[2020-06-02] MEDS: Apixaban 2.5 MG TAB PO SCH ×2 (08:57→21:16)
[2020-06-02] MEDS: Furosemide 40 MG TAB PO SCH (08:57)
[2020-06-02] MEDS: Aspirin Chewable 81 MG TAB PO SCH (08:57)
[2020-06-02] MEDS: Polyethylene Glycol 3350 17 GM Packet PO SCH (08:57)
[2020-06-02] MEDS: Cyanocobalamin (Vitamin B-12) 1,000 MCG TAB PO SCH (08:58)
[2020-06-02] MEDS: Clopidogrel Bisulfate 75 MG TAB PO SCH (08:58)
[2020-06-02] MEDS: Senokot S 8.6-50 MG TAB PO SCH ×2 (08:58→21:16)
[2020-06-02] MEDS: Folic Acid 1 MG TAB PO SCH (08:58)
[2020-06-02] MEDS: Amiodarone 450 MG in Dextrose 5% in Water 250 ML IVPB SCH (12:17)
--- NOTE | 2020-06-02 12:56 | PDOC.CPN ---
- Subjective Date: 06/02/20 Time: 08:00 Interval history: No overnight events, patient remains in atrial fibrillation rate has sustained between 80-100 per telemetry records. Patient states that he feels like his breathing has stayed about the same. He does feel as if his BLE have become more edematous. He denies any chest pain, dizziness. - Review of Systems General: denies: fever/chills, weight/appetite/sleep changes, night sweats, fatigue Respiratory: reports: shortness of breath (SOB with exertion) Cardiovascular: reports: edema (worsening BLE edema) Gastrointestinal: denies: nausea, vomiting, diarrhea, constipation, abd pain, GI bleeding Musculoskeletal: denies: pain, tenderness, stiffness, swelling, arthritis/arthralgias Neurological: denies: numbness, syncope, seizure, weakness - Objective Allergies/Adverse Reactions: Allergies Allergy/AdvReac Type Severity Reaction Status Date / Time codeine Allergy Verified 05/05/20 16:11 Penicillins Allergy Verified 05/05/20 20:32 Visit Medications: Current Medications Albuterol/Ipratropium (Ipratropium/Albuterol Sulfate 3 Ml Neb) 3 ml NEB [id number] [facility] Last Admin: 06/02/20 07:16 Dose: 3 ml Documented by: Apixaban (Apixaban 2.5 Mg Tab) 2.5 mg PO BID [facility] Last Admin: 06/02/20 08:57 Dose: 2.5 mg Documented by: Aspirin (Aspirin Chewable 81 Mg Tab) 81 mg PO DAILY [facility] Last Admin: 06/02/20 08:57 Dose: 81 mg Documented by: Atorvastatin Calcium (Atorvastatin Calcium 40 Mg Tab) 40 mg PO HS [facility] Last Admin: 06/01/20 20:16 Dose: 40 mg Documented by: Carvedilol (Carvedilol 6.25 Mg Tab) 6.25 mg PO BID [facility] Last Admin: 06/02/20 08:56 Dose: 6.25 mg Documented by: Clopidogrel Bisulfate (Clopidogrel Bisulfate 75 Mg Tab) 75 mg PO DAILY [facility] Last Admin: 06/02/20 08:58 Dose: 75 mg Documented by: Cyanocobalamin (Cyanocobalamin (Vitamin B-12) 1,000 Mcg Tab) 1,000 mcg PO DAILY [facility] Last Admin: 06/02/20 08:58 Dose: 1,000 mcg Documented by: Dextrose/Water (Dextrose 50% Abboject 50 Ml Syringe) 25 gm SLOW IVP PRN PRN PRN Reason: Hypoglycemia Folic Acid (Folic Acid 1 Mg Tab) 1 mg PO DAILY [facility] Last Admin: 06/02/20 08:58 Dose: 1 mg Documented by: Furosemide (Furosemide 40 Mg/4 Ml Vial) 40 mg SLOW IVP 0600,1400 SAUD Glucagon (Glucagon 1 Mg/Ml Vial) 1 mg IM PRN PRN PRN Reason: Hypoglycemia Dextrose/Water (D5w) 1,000 mls @ 0 mls/hr IV .Q0M PRN PRN Reason: Hypoglycemia Amiodarone HCl 450 mg/ (Dextrose/Water) 259 mls @ 0 mls/hr IVPB INF [facility]; Protocol Last Admin: 06/02/20 12:17 Dose: 259 mls Documented by: Insulin Human Lispro (Humalog 300 Units/3 Ml Vial) 0 units SC .MILD SLIDING SCALE PRN PRN Reason: Mild Correctional Scale Last Admin: 06/02/20 12:09 Dose: 3 unit Documented by: Insulin Human Lispro (Humalog 300 Units/3 Ml Vial) 0 units SC .BEDTIME SLIDING SC PRN PRN Reason: Bedtime Correctional Scale Polyethylene Glycol (Polyethylene Glycol 3350 17 Gm Packet) 17 gm PO DAILY [facility] Last Admin: 06/02/20 08:57 Dose: Not Given Documented by: Senna/Docusate Sodium (Senokot S 8.6-50 Mg Tab) 1 tab PO BID [facility] Last Admin: 06/02/20 08:58 Dose: 1 tab Documented by: Vital Signs & Weight: Vital Signs Temp Pulse Pulse Pulse Resp BP BP 06/02/20 12:15 98 F 85 18 06/02/20 10:07 95 88 121/67 116/64 06/02/20 08:54 97.9 F 97 18 06/02/20 07:19 06/02/20 07:16 86 16 06/02/20 04:00 98 F 92 17 06/02/20 01:06 90 16 BP BP Pulse Ox Pulse Ox Pulse Ox 06/02/20 12:15 119/75 96 06/02/20 10:07 99 96 06/02/20 08:54 114/80 98 06/02/20 07:19 95 06/02/20 07:16 95 12/01/20 04:00 120/72 97 06/02/20 01:06 98 Weight 208 lb 3.2 oz - Quality Measures Condition: Atrial Fibrillation/Flutter (hx or current), Coronary Artery Disease, Heart Failure CV meds: Beta Melvi: Yes, SAE/ARB: No (Renal insufficiency), Statin: Yes, ASA: Yes, Plavix/Effient/Brilinta: Yes, Anticoagulant: Yes (Eliquis ) - Medication Contraindications No SAE/ARB reason: Medical contraindication (Renal insufficiency) - Physical Exam General: alert & oriented x3, appears well, no apparent distress HEENT: mucus membranes moist Neck: supple neck, no JVD/HJR, no masses Cardiac: irregularly regular, other (wearing external defibrilator, tolerating well.) Lungs: clear to auscultation, no wheeze, rales, rhonchi Neuro: cranial nerve 2-12 intact, grossly intact, motor function intact Abdomen: active bowel sounds, soft, non-tender Extremities: 2+ LE edema (wearing compression stockings) Skin: clear Musculoskeletal: normal range of motion - Labs Result Diagrams: 06/02/20 04:36 06/02/20 04:35 Troponin/CKMB CK-MB (CK-2) 7.7 ng/mL (0-6.6) H* 05/30/20 11:26 Troponin I 0.466 ng/mL (< 0.028) H* 05/30/20 17:05 - EKG Interpretation EKG Method: Telemetry EKG shows: atrial fibrillation - Assessment/Plan Assessment/Plan: 1. Ischemic cardiomyopathy with repeat episode of chest pain. His chest pain has gotten better since admission to the hospital, he denies any CP overnight or this morning. He does c/o SOB upon exertion this morning. His lung sounds are CTA bilaterally throughout. He has severe 3 vessel coronary artery disease. He is most likely not a candidate for bypass surgery. We can re-discuss with CT surgeons when patient becomes more stable. He has poor targets for bypass surgery, we will continue to treat medically at this time. 2. History of hypertension: Well controlled at this time. BP this A.M. 120/72. We will continue with current treatment, we will continue to hold SAE inhibitor d/t Creatinine level of 2.20, his creatinine level is trending down, but we will continue to hold at this time. 3. Atrial fibrillation: He is on Eliquis, we will continue this at this time, his rate is under relatively reasonable control but occasionally is in the low 100's. He remains on Amiodarone drip that was started yesterday, he continues to be in atrial fibrillation. Perhaps he will convert to sinus rhythm. If not he may need an electrical cardioversion to establish NSR. Given the severe decrease in the EF he will benefit from atrial contraction. We will continue to monitor the patient very carefully for further changes. 4. Bilateral lower extremity edema: he feels as if his legs are more edematous than yesterday. I do agree with this assessment upon my exam this morning. He wa s changed to PO Lasix 40 mg once a day yesterday. We will change this back to Lasix 40 mg BID IV. His output record shows that he is retaining fluid. We will continue to monitor his intake and output and kidney function. Pt. seen and eval. by me. I agree with the A/P by the [employer].Chest clear. Irreg/i rreg. rhythm. Poor prognosis overall. [place]
[2020-06-02] MEDS: Furosemide 40 MG/4 ML VIAL SLOW IVP SCH (14:22)
--- NOTE | 2020-06-02 15:01 | PDOC.HOSPP ---
- Subjective Encounter Date: 06/02/20 Subjective: The patient denies chest pain or shortness of breath. - Objective Vital Signs & Weight: Vital Signs (12 hours) Temp Pulse Pulse Pulse Resp BP BP 06/02/20 12:59 71 16 06/02/20 12:15 98 F 85 18 06/02/20 10:07 95 88 121/67 116/64 06/02/20 08:54 97.9 F 97 18 06/02/20 07:19 06/02/20 07:16 86 16 06/02/20 04:00 98 F 92 17 BP BP Pulse Ox Pulse Ox Pulse Ox 06/02/20 12:59 91 L 06/02/20 12:15 119/75 96 06/02/20 10:07 99 96 06/02/20 08:54 114/80 98 06/02/20 07:19 95 06/02/20 07:16 95 06/02/20 04:00 120/72 97 Weight Weight 208 lb 3.2 oz I&O: 06/01/20 06/02/20 06/03/20 06:59 06:59 06:59 Intake Total 1020 1736 Output Total 1480 825 Balance -460 911 Result Diagrams: 06/02/20 04:36 06/02/20 04:35 Additional Labs: Accuchecks 06/02/20 06/02/20 06/01/20 10:29 06:06 20:28 POC Glucose 234 H 168 H 171 H Hospitalist ROS - Medication Medications: Active Medications Generic Name Dose Route Start Last Admin Trade Name Freq PRN Reason Stop Dose Admin Albuterol/Ipratropium 3 ml 05/30/20 19:00 06/02/20 12:59 Ipratropium/Albuterol Sulfate 3 Ml Neb NEB 3 ml [id number] SAUD Administration Apixaban 2.5 mg 05/30/20 21:00 06/02/20 08:57 Apixaban 2.5 Mg Tab PO 2.5 mg BID SAUD Administration Aspirin 81 mg 05/31/20 09:00 06/02/20 08:57 Aspirin Chewable 81 Mg Tab PO 81 mg DAILY SAUD Administration Atorvastatin Calcium 40 mg 05/30/20 21:00 06/01/20 20:16 Atorvastatin Calcium 40 Mg Tab PO 40 mg HS SAUD Administration Carvedilol 6.25 mg 05/30/20 21:00 06/02/20 08:56 Carvedilol 6.25 Mg Tab PO 6.25 mg BID SAUD Administration Clopidogrel Bisulfate 75 mg 05/31/20 09:00 06/02/20 08:58 Clopidogrel Bisulfate 75 Mg Tab PO 75 mg DAILY SAUD Administration Cyanocobalamin 1,000 mcg 05/31/20 09:00 06/02/20 08:58 Cyanocobalamin (Vitamin B-12) 1,000 Mcg Tab PO 1,000 mcg DAILY SAUD Administration Folic Acid 1 mg 05/31/20 09:00 06/02/20 08:58 Folic Acid 1 Mg Tab PO 1 mg DAILY SAUD Administration Furosemide 40 mg 06/02/20 14:00 06/02/20 14:22 Furosemide 40 Mg/4 Ml Vial SLOW IVP 40 mg 0600,1400 SAUD Administration Amiodarone HCl 450 mg/ 259 mls @ 0 mls/hr 06/01/20 10:45 06/02/20 12:17 Dextrose/Water IVPB 259 mls INF SAUD Administration Protocol Per Protocol Insulin Human Lispro 0 units 05/30/20 18:27 06/02/20 12:09 Humalog 300 Units/3 Ml Vial SC 3 unit .MILD SLIDING SCALE PRN Administration Mild Correctional Scale Polyethylene Glycol 17 gm 05/31/20 09:00 06/02/20 08:57 Polyethylene Glycol 3350 17 Gm Packet PO Not Given DAILY SAUD Senna/Docusate Sodium 1 tab 05/30/20 21:00 06/02/20 08:58 Senokot S 8.6-50 Mg Tab PO 1 tab BID SAUD Administration - Exam General Appearance: awake alert ENT: normocephalic atraumatic Neck: supple, no JVD Heart: RRR Respiratory: normal chest expansion, no tachypnea Extremities: no cyanosis, no clubbing Hosp A/P (1) Ischemic cardiomyopathy Code(s): I25.5 - ISCHEMIC CARDIOMYOPATHY Status: Acute (2) CAD (coronary artery disease) Code(s): I25.10 - ATHSCL HEART DISEASE OF [place] CORONARY ARTERY W/O ANG PCTRS Status: Acute Qualifiers: Coronary Disease-Associated Artery/Lesion type: [place] artery [place] vs. transplanted heart: [place] heart Associated angina: with stable angina Qualified Code(s): I25.118 - Atherosclerotic heart disease of [place] coronary artery with other forms of angina pectoris (3) Afib Code(s): I48.91 - UNSPECIFIED ATRIAL FIBRILLATION Status: Chronic Qualifiers: Atrial fibrillation type: longstanding persistent Qualified Code(s): I48.11 - Longstanding persistent atrial fibrillation (4) Dyslipidemia Code(s): E78.5 - HYPERLIPIDEMIA, UNSPECIFIED Status: Chronic (5) HTN (hypertension) Code(s): I10 - ESSENTIAL (PRIMARY) HYPERTENSION Status: Chronic Qualifiers: Hypertension type: essential hypertension Qualified Code(s): I10 - [place] (primary) hypertension - Plan Chest pain likely due to severe multivessel coronary artery disease. Patient is a poor candidate for bypass surgery. Continue medical management per cardiology. The patient saturating well on room air. Lasix changed to 40 mg IV twice daily due to worsening peripheral edema. The patient is on amiodarone for atrial fibrillation.
[2020-06-02] MEDS: Atorvastatin Calcium 40 MG TAB PO SCH (21:16)
[2020-06-03] MEDS: Amiodarone 450 MG in Dextrose 5% in Water 250 ML IVPB SCH (03:16)
[2020-06-03 04:46] LABS: #Eosinphils 0.2 thou/uL (0.0-0.7); #Lymphocytes 1.5 thou/uL (1.20-3.40); #Monocytes 0.8 thou/uL (0.11-0.59); %Basophils 0.4 % (0.0-1.0); %Eosinophils 3.8 % (0.0-10.0); %Neutrophils 60.9 % (42.0-75.0); Hemoglobin 13.4 g/dL (14.0-18.0); Mean Corpuscular HGB CONC 33.4 g/dL (32.0-36.0); Mean Corpuscular Hemoglobin 30.4 pg (27.0-31.0); Mean Corpuscular Volume 91.1 fL (78.0-98.0); Mean Platelet Volume 8.8 fL (7.4-10.4); Platelet Count 171 thou/uL (130-400); RBC Distribution Width 12.1 % (11.5-14.5); Red Blood Cell (RBC) Count 4.42 mill/uL (4.70-6.10); White Blood Cell (WBC) Count 6.6 thou/uL (4.8-10.8)
[2020-06-03 05:08] LABS: Anion Gap 15 mmol/L (10-20); BUN (Urea Nitrogen) 34 mg/dL (8.4-25.7); Calc. Creatinine Clearance 35 mL/min (70-130); Calcium 8.7 mg/dL (7.8-10.44); Carbon Dioxide 23 mmol/L (23-31); Chloride 102 mmol/L (98-107); Estimated GFR-MDRD 28; Glucose 154 mg/dL (83-110); Potassium 3.9 mmol/L (3.5-5.1); Sodium 136 mmol/L (136-145)
[2020-06-03] MEDS: Furosemide 40 MG/4 ML VIAL SLOW IVP SCH ×2 (05:57→13:31)
[2020-06-03] MEDS: Carvedilol 6.25 MG TAB PO SCH ×2 (09:37→21:19)
[2020-06-03] MEDS: Senokot S 8.6-50 MG TAB PO SCH (09:37)
[2020-06-03] MEDS: Clopidogrel Bisulfate 75 MG TAB PO SCH (09:37)
[2020-06-03] MEDS: Polyethylene Glycol 3350 17 GM Packet PO SCH (09:37)
[2020-06-03] MEDS: Apixaban 2.5 MG TAB PO SCH ×2 (09:37→21:19)
[2020-06-03] MEDS: Folic Acid 1 MG TAB PO SCH (09:37)
[2020-06-03] MEDS: Cyanocobalamin (Vitamin B-12) 1,000 MCG TAB PO SCH (09:37)
[2020-06-03] MEDS: Aspirin Chewable 81 MG TAB PO SCH (09:37)
[2020-06-03] MEDS: HumaLOG 300 UNITS/3 ML VIAL SC PRN ×2 (11:37→17:46)
[2020-06-03] MEDS ORDERED: Metolazone 5 MG TAB PO SCH (13:00)
--- NOTE | 2020-06-03 13:10 | PDOC.CPN ---
"- Subjective Date: 06/03/20 Time: 08:00 Interval history: No overnight events, he remains in atrial fibrillation with a rate of 70's-100. He states his shortness of breath feels the same as it was upon admission, he denies any chest pain, dizziness. - Review of Systems General: denies: fever/chills, weight/appetite/sleep changes, night sweats, fatigue Respiratory: reports: shortness of breath Cardiovascular: reports: edema. denies: chest pain, palpitation, paroxysmal nocturnal dyspnea, orthopnea Musculoskeletal: denies: pain, tenderness, stiffness, swelling, arthritis/arthr algias Neurological: denies: numbness, syncope, seizure, weakness - Objective Allergies/Adverse Reactions: Allergies Allergy/AdvReac Type Severity Reaction Status Date / Time codeine Allergy Verified 05/05/20 16:11 Penicillins Allergy Verified 05/05/20 20:32 Visit Medications: Current Medications Albuterol/Ipratropium (Ipratropium/Albuterol Sulfate 3 Ml Neb) 3 ml NEB [id number] [facility] Last Admin: 06/03/20 08:00 Dose: 3 ml Documented by: Amiodarone HCl (Amiodarone 200 Mg Tab) 200 mg PO TID [facility] Apixaban (Apixaban 2.5 Mg Tab) 2.5 mg PO BID [facility] Last Admin: 06/03/20 09:37 Dose: 2.5 mg Documented by: Aspirin (Aspirin Chewable 81 Mg Tab) 81 mg PO DAILY [facility] Last Admin: 06/03/20 09:37 Dose: 81 mg Documented by: Atorvastatin Calcium (Atorvastatin Calcium 40 Mg Tab) 40 mg PO HS [facility] Last Admin: 06/02/20 21:16 Dose: 40 mg Documented by: Carvedilol (Carvedilol 6.25 Mg Tab) 6.25 mg PO BID [facility] Last Admin: 06/03/20 09:37 Dose: 6.25 mg Documented by: Clopidogrel Bisulfate (Clopidogrel Bisulfate 75 Mg Tab) 75 mg PO DAILY [facility] Last Admin: 06/03/20 09:37 Dose: 75 mg Documented by: Cyanocobalamin (Cyanocobalamin (Vitamin B-12) 1,000 Mcg Tab) 1,000 mcg PO DAILY [facility] Last Admin: 06/03/20 09:37 Dose: 1,000 mcg Documented by: Dextrose/Water (Dextrose 50% Abboject 50 Ml Syringe) 25 gm SLOW IVP PRN PRN PRN Reason: Hypoglycemia Folic Acid (Folic Acid 1 Mg Tab) 1 mg PO DAILY [facility] Last Admin: 06/03/20 09:37 Dose: 1 mg Documented by: Furosemide (Furosemide 40 Mg/4 Ml Vial) 40 mg SLOW IVP 0600,1400 [facility] Last Admin: 06/03/20 05:57 Dose: 40 mg Documented by: Glucagon (Glucagon 1 Mg/Ml Vial) 1 mg IM PRN PRN PRN Reason: Hypoglycemia Dextrose/Water (D5w) 1,000 mls @ 0 mls/hr IV .Q0M PRN PRN Reason: Hypoglycemia Insulin Human Lispro (Humalog 300 Units/3 Ml Vial) 0 units SC .MILD SLIDING SCALE PRN PRN Reason: Mild Correctional Scale Last Admin: 06/03/20 11:37 Dose: 2 unit Documented by: Insulin Human Lispro (Humalog 300 Units/3 Ml Vial) 0 units SC .BEDTIME SLIDING SC PRN PRN Reason: Bedtime Correctional Scale Metolazone (Metolazone 5 Mg Tab) 5 mg PO NOW [facility] Stop: 06/03/20 15:00 Polyethylene Glycol (Polyethylene Glycol 3350 17 Gm Packet) 17 gm PO DAILY [facility] Last Admin: 06/03/20 09:37 Dose: 17 gm Documented by: Senna/Docusate Sodium (Senokot S 8.6-50 Mg Tab) 1 tab PO BID [facility] Last Admin: 06/03/20 09:37 Dose: 1 tab Documented by: Vital Signs & Weight: Vital Signs Temp Pulse Resp BP BP Pulse Ox 06/03/20 12:05 98.4 F 74 16 117/76 96 06/03/20 08:00 91 14 98 06/03/20 07:25 98.6 F 87 18 133/79 99 06/03/20 03:12 98 F 94 20 117/67 95 Weight 200 lb 12.8 oz - Quality Measures Condition: Atrial Fibrillation/Flutter (hx or current), Coronary Artery Disease, Heart Failure CV meds: Beta Melvi: Yes, SAE/ARB: No (Renal insufficiency), Statin: Yes, ASA: Yes, Plavix/Effient/Brilinta: Yes, Anticoagulant: Yes (Eliquis ) - Medication Contraindications No SAE/ARB reason: Medical contraindication (Renal insufficiency) - Physical Exam General: alert & oriented x3, appears well, no apparent distress HEENT: mucus membranes moist Neck: supple neck, no masses, no bruit Cardiac: irregularly regular Lungs: normal breath sounds, no wheeze, rales, rhonchi (getting breathing treament during exam) Neuro: grossly intact, motor function intact Abdomen: soft, non-tender Extremities: 2+ LE edema Skin: clear Musculoskeletal: normal range of motion, no pain - Labs Result Diagrams: 06/03/20 04:22 06/03/20 04:22 Troponin/CKMB CK-MB (CK-2) 7.7 ng/mL (0-6.6) H* 05/30/20 11:26 Troponin I 0.466 ng/mL (< 0.028) H* 05/30/20 17:05 - EKG Interpretation EKG Method: Telemetry EKG shows: atrial fibrillation - Assessment/Plan Assessment/Plan: 1. Ischemic cardiomyopathy with repeat episode of chest pain. His chest pain has gotten better since admission to the hospital, he denies any CP overnight or this morning. He does c/o SOB upon exertion this morning. His lung sounds are CTA bilaterally throughout. He has severe 3 vessel coronary artery disease. He is most likely not a candidate for bypass surgery. He has poor targets for bypass surgery, we will continue to treat medically at this time. 2. History of hypertension: Continues to be Well controlled. BP this A.M. 117/67. We will continue with current treatment, we will continue to hold SAE inhibitor d/t Creatinine level of 2.20, his creatinine level is trending down, but we will continue to hold at this time. 3. Atrial fibrillation: He is on Eliquis, we will continue this at this time, his rate is under relatively reasonable control but occasionally is in the low 100's. . If not he may need an electrical cardioversion to establish NSR. Given the severe decrease in the EF he will benefit from atrial contraction. We will continue to monitor the patient very carefully for further changes. Will we transition to PO Amiodarone 200 mg TID and stop the Amiodarone drip, he remains well controlled with a rate ranging from 70-100. 4. Bilateral lower extremity edema: Leg continue to be edematous, he continues to wear compression stockings. He was changed back to IV Lasix yesterday, he still did not have much output. Will order a one time dose of Zaroxolyn. We will continue to monitor his intake and output and kidney function. His Creatinine levels have slightly decreased this morning. Pt. seen and eval. by me. I agree with the A|P by the [employer]UCATION. Family is trying to arrange home hospice for the pt. This is reasonable. [place]"
[2020-06-03] MEDS: Amiodarone 200 MG TAB PO SCH ×2 (14:53→21:19)
--- NOTE | 2020-06-03 16:09 | PDOC.HOSPP ---
- Subjective Encounter Date: 06/03/20 - Objective Vital Signs & Weight: Vital Signs (12 hours) Temp Pulse Resp BP BP Pulse Ox 06/03/20 15:30 98.1 F 81 17 113/60 96 06/03/20 12:05 98.4 F 74 16 117/76 96 06/03/20 08:00 91 14 98 06/03/20 07:25 98.6 F 87 18 133/79 99 Weight Weight 200 lb 12.8 oz I&O: 06/02/20 06/03/20 06/04/20 06:59 06:59 06:59 Intake Total 1736 1832.4 Output Total 825 1950 Balance 911 -117.6 Result Diagrams: 06/03/20 04:22 06/03/20 04:22 Additional Labs: Accuchecks 06/03/20 06/03/20 06/02/20 11:02 05:50 20:09 POC Glucose 179 H 151 H 158 H 06/02/20 16:49 POC Glucose 170 H Hospitalist ROS - Medication Medications: Active Medications Generic Name Dose Route Start Last Admin Trade Name Freq PRN Reason Stop Dose Admin Albuterol/Ipratropium 3 ml 05/30/20 19:00 06/03/20 14:01 Ipratropium/Albuterol Sulfate 3 Ml Neb NEB Not Given [id number] SAUD Amiodarone HCl 200 mg 06/03/20 15:00 06/03/20 14:53 Amiodarone 200 Mg Tab PO 200 mg TID SAUD Administration Apixaban 2.5 mg 05/30/20 21:00 06/03/20 09:37 Apixaban 2.5 Mg Tab PO 2.5 mg BID SUAD Administration Aspirin 81 mg 05/31/20 09:00 06/03/20 09:37 Aspirin Chewable 81 Mg Tab PO 81 mg DAILY SAUD Administration Atorvastatin Calcium 40 mg 05/30/20 21:00 06/02/20 21:16 Atorvastatin Calcium 40 Mg Tab PO 40 mg HS SAUD Administration Carvedilol 6.25 mg 05/30/20 21:00 06/03/20 09:37 Carvedilol 6.25 Mg Tab PO 6.25 mg BID SAUD Administration Clopidogrel Bisulfate 75 mg 05/31/20 09:00 06/03/20 09:37 Clopidogrel Bisulfate 75 Mg Tab PO 75 mg DAILY SAUD Administration Cyanocobalamin 1,000 mcg 05/31/20 09:00 06/03/20 09:37 Cyanocobalamin (Vitamin B-12) 1,000 Mcg Tab PO 1,000 mcg DAILY SAUD Administration Folic Acid 1 mg 05/31/20 09:00 06/03/20 09:37 Folic Acid 1 Mg Tab PO 1 mg DAILY SAUD Administration Furosemide 40 mg 06/02/20 14:00 06/03/20 13:31 Furosemide 40 Mg/4 Ml Vial SLOW IVP 40 mg 0600,1400 SAUD Administration Insulin Human Lispro 0 units 05/30/20 18:27 06/03/20 11:37 Humalog 300 Units/3 Ml Vial SC 2 unit .MILD SLIDING SCALE PRN Administration Mild Correctional Scale Polyethylene Glycol 17 gm 05/31/20 09:00 06/03/20 09:37 Polyethylene Glycol 3350 17 Gm Packet PO 17 gm DAILY SAUD Administration Senna/Docusate Sodium 1 tab 05/30/20 21:00 06/03/20 09:37 Senokot S 8.6-50 Mg Tab PO 1 tab BID SAUD Administration Hosp A/P (1) Ischemic cardiomyopathy Code(s): I25.5 - ISCHEMIC CARDIOMYOPATHY Status: Acute (2) CAD (coronary artery disease) Code(s): I25.10 - ATHSCL HEART DISEASE OF [place] CORONARY ARTERY W/O ANG PCTRS Status: Acute Qualifiers: Coronary Disease-Associated Artery/Lesion type: [place] artery [place] vs. transplanted heart: [place] heart Associated angina: with stable angina Qualified Code(s): I25.118 - Atherosclerotic heart disease of [place] coronary artery with other forms of angina pectoris (3) Afib Code(s): I48.91 - UNSPECIFIED ATRIAL FIBRILLATION Status: Chronic Qualifiers: Atrial fibrillation type: longstanding persistent Qualified Code(s): I48.11 - Longstanding persistent atrial fibrillation (4) Dyslipidemia Code(s): E78.5 - HYPERLIPIDEMIA, UNSPECIFIED Status: Chronic (5) HTN (hypertension) Code(s): I10 - ESSENTIAL (PRIMARY) HYPERTENSION Status: Chronic Qualifiers: Hypertension type: essential hypertension Qualified Code(s): I10 - Essential (primary) hypertension - Plan Chest pain likely due to severe multivessel coronary artery disease. Patient is a poor candidate for bypass surgery. Continue medical management per cardiology. The patient saturating well on room air. No significant urine output despite being on Lasix. Compression stockings for lower extremity edema. Clinically stable for discharge when okay by cardiology.
[2020-06-03] MEDS ORDERED: Acetaminophen 500 MG TAB PO SCH (21:00)
[2020-06-03] MEDS: Atorvastatin Calcium 40 MG TAB PO SCH (21:19)
[2020-06-04 04:25] LABS: #Eosinphils 0.2 thou/uL (0.0-0.7); #Lymphocytes 1.5 thou/uL (1.20-3.40); #Monocytes 0.8 thou/uL (0.11-0.59); #Neutrophils 3.4 thou/uL (1.40-6.50); %Lymphocytes 25.5 % (21.0-51.0); %Monocytes 14.3 % (0.0-10.0); %Neutrophils 57.2 % (42.0-75.0); Hemoglobin 13.1 g/dL (14.0-18.0); Mean Corpuscular HGB CONC 33.3 g/dL (32.0-36.0); Mean Corpuscular Hemoglobin 30.9 pg (27.0-31.0); Mean Corpuscular Volume 92.7 fL (78.0-98.0); Mean Platelet Volume 9.6 fL (7.4-10.4); Platelet Count 157 thou/uL (130-400); RBC Distribution Width 12.2 % (11.5-14.5); Red Blood Cell (RBC) Count 4.25 mill/uL (4.70-6.10); White Blood Cell (WBC) Count 5.9 thou/uL (4.8-10.8)
[2020-06-04 04:42] LABS: Anion Gap 15 mmol/L (10-20); BUN (Urea Nitrogen) 40 mg/dL (8.4-25.7); Calc. Creatinine Clearance 34 mL/min (70-130); Calcium 8.7 mg/dL (7.8-10.44); Carbon Dioxide 26 mmol/L (23-31); Chloride 101 mmol/L (98-107); Estimated GFR-MDRD 28; Glucose 128 mg/dL (83-110); Potassium 3.6 mmol/L (3.5-5.1); Sodium 138 mmol/L (136-145)
[2020-06-04] MEDS: Senokot S 8.6-50 MG TAB PO SCH ×3 (04:43→21:20)
[2020-06-04] MEDS: Furosemide 40 MG/4 ML VIAL SLOW IVP SCH ×2 (06:28→14:59)
[2020-06-04] MEDS: Clopidogrel Bisulfate 75 MG TAB PO SCH (08:25)
[2020-06-04] MEDS: Aspirin Chewable 81 MG TAB PO SCH (08:25)
[2020-06-04] MEDS: Cyanocobalamin (Vitamin B-12) 1,000 MCG TAB PO SCH (08:25)
[2020-06-04] MEDS: Folic Acid 1 MG TAB PO SCH (08:25)
[2020-06-04] MEDS: Apixaban 2.5 MG TAB PO SCH ×2 (08:25→21:20)
[2020-06-04] MEDS: Amiodarone 200 MG TAB PO SCH ×3 (08:25→21:20)
[2020-06-04] MEDS: Carvedilol 6.25 MG TAB PO SCH ×2 (08:25→21:20)
[2020-06-04] MEDS: Polyethylene Glycol 3350 17 GM Packet PO SCH (08:27)
--- NOTE | 2020-06-04 08:53 | PDOC.CPN ---
- Subjective Date: 06/04/20 Time: 07:30 Interval history: No over night events, he remains in atrial fibrillation. He denies any chest pain or shorntess of breath this morning. He is still at the side of the bed eating breakfast. He is wearing compression stockings. - Review of Systems General: denies: fever/chills, weight/appetite/sleep changes, night sweats, fatigue Respiratory: denies: cough, congestion, shortness of breath, exercise intolerance Cardiovascular: reports: edema Gastrointestinal: denies: nausea, vomiting, diarrhea, constipation, abd pain, GI bleeding Musculoskeletal: denies: pain, tenderness, stiffness, swelling, arthritis/arthralgias Neurological: denies: numbness, syncope, seizure, weakness - Objective Allergies/Adverse Reactions: Allergies Allergy/AdvReac Type Severity Reaction Status Date / Time codeine Allergy Verified 05/05/20 16:11 Penicillins Allergy Verified 05/05/20 20:32 Visit Medications: Current Medications Albuterol/Ipratropium (Ipratropium/Albuterol Sulfate 3 Ml Neb) 3 ml NEB [id number] [facility] Last Admin: 06/04/20 07:17 Dose: 3 ml Documented by: Amiodarone HCl (Amiodarone 200 Mg Tab) 200 mg PO TID [facility] Last Admin: 06/04/20 08:25 Dose: 200 mg Documented by: Apixaban (Apixaban 2.5 Mg Tab) 2.5 mg PO BID [facility], [facility] Last Admin: 06/04/20 08:25 Dose: 2.5 mg Documented by: Aspirin (Aspirin Chewable 81 Mg Tab) 81 mg PO DAILY [facility]1983 Last Admin: 06/04/20 08:25 Dose: 81 mg Documented by: Atorvastatin Calcium (Atorvastatin Calcium 40 Mg Tab) 40 mg PO HS [facility], [facility]1983 Last Admin: 06/03/20 21:19 Dose: 40 mg Documented by: Carvedilol (Carvedilol 6.25 Mg Tab) 6.25 mg PO BID [facility]1983 Last Admin: 06/04/20 08:25 Dose: 6.25 mg Documented by: Clopidogrel Bisulfate (Clopidogrel Bisulfate 75 Mg Tab) 75 mg PO DAILY [facility] Last Admin: 06/04/20 08:25 Dose: 75 mg Documented by: Cyanocobalamin (Cyanocobalamin (Vitamin B-12) 1,000 Mcg Tab) 1,000 mcg PO DAILY [facility] Last Admin: 06/04/20 08:25 Dose: 1,000 mcg Documented by: Dextrose/Water (Dextrose 50% Abboject 50 Ml Syringe) 25 gm SLOW IVP PRN PRN PRN Reason: Hypoglycemia Folic Acid (Folic Acid 1 Mg Tab) 1 mg PO DAILY [facility] Last Admin: 06/04/20 08:25 Dose: 1 mg Documented by: Furosemide (Furosemide 40 Mg/4 Ml Vial) 40 mg SLOW IVP 0600,1400 [facility] Last Admin: 06/04/20 06:28 Dose: 40 mg Documented by: Glucagon (Glucagon 1 Mg/Ml Vial) 1 mg IM PRN PRN PRN Reason: Hypoglycemia Dextrose/Water (D5w) 1,000 mls @ 0 mls/hr IV .Q0M PRN PRN Reason: Hypoglycemia Insulin Human Lispro (Humalog 300 Units/3 Ml Vial) 0 units SC .MILD SLIDING SCALE PRN PRN Reason: Mild Correctional Scale Last Admin: 06/03/20 17:46 Dose: 2 unit Documented by: Insulin Human Lispro (Humalog 300 Units/3 Ml Vial) 0 units SC .BEDTIME SLIDING SC PRN PRN Reason: Bedtime Correctional Scale Metolazone (Metolazone 5 Mg Tab) 5 mg PO ONE [facility] Polyethylene Glycol (Polyethylene Glycol 3350 17 Gm Packet) 17 gm PO DAILY [facility] Last Admin: 06/04/20 08:27 Dose: Not Given Documented by: Senna/Docusate Sodium (Senokot S 8.6-50 Mg Tab) 1 tab PO BID [facility] Last Admin: 06/04/20 08:25 Dose: 1 tab Documented by: Vital Signs & Weight: Vital Signs Temp Pulse Resp BP BP BP Pulse Ox 06/04/20 07:55 98.6 F 85 16 115/80 94 L 06/04/20 07:22 98 06/04/20 07:17 84 16 97 06/04/20 04:00 97.6 F 78 18 99/56 L 95 06/04/20 00:21 16 06/03/20 21:19 114/71 Weight 200 lb 9.6 oz - Quality Measures Condition: Atrial Fibrillation/Flutter (hx or current), Coronary Artery Disease, Heart Failure CV meds: Beta Melvi: Yes, SAE/ARB: No (Renal insufficiency), Statin: Yes, ASA: Yes, Plavix/Effient/Brilinta: Yes, Anticoagulant: Yes (Eliquis ) - Medication Contraindications No SAE/ARB reason: Medical contraindication (Renal insufficiency) - Physical Exam General: alert & oriented x3, appears well, no apparent distress HEENT: mucus membranes moist Neck: supple neck, midline trachea, no JVD/HJR, no bruit Cardiac: irregularly regular Lungs: clear to auscultation, no wheeze, rales, rhonchi Neuro: cranial nerve 2-12 intact, grossly intact Abdomen: active bowel sounds, soft, non-tender Extremities: no cyanosis, 2+ LE edema (wearing knee-high compression stockings) Skin: clear, other (wearing external defibrilator, tolerating well.) Musculoskeletal: normal range of motion, no pain - Labs Result Diagrams: 06/04/20 04:02 06/04/20 04:02 Troponin/CKMB CK-MB (CK-2) 7.7 ng/mL (0-6.6) H* 05/30/20 11:26 Troponin I 0.466 ng/mL (< 0.028) H* 05/30/20 17:05 - EKG Interpretation EKG Method: Telemetry EKG shows: atrial fibrillation - Assessment/Plan Assessment/Plan: 1. Ischemic cardiomyopathy with repeat episode of chest pain. His chest pain has gotten better since admission to the hospital, he denies any CP overnight or this morning. He does c/o SOB upon exertion this morning. His lung sounds are CTA bilaterally throughout. He has severe 3 vessel coronary artery disease. He is most likely not a candidate for bypass surgery. He has poor targets for bypass surgery, we will continue to treat medically at this time. 2. History of hypertension: Continues to be Well controlled. BP this A.M. 117/67. We will continue with current treatment, we will continue to hold SAE inhibitor d/t Creatinine level of 2.29, his creatinine level is trending down, but we will continue to hold at this time. 3. Atrial fibrillation: He remains in atrial fibrillation, He is on Eliquis, we will continue this at this time, his rate is under relatively reasonable control but occasionally is in the low 100's. He remained in the 70's-90's throughout the night. We will continue with PO Amiodarone for rate control. 4. Bilateral lower extremity edema: Leg continue to be edematous, he continues to wear compression stockings. He was changed back to IV Lasix yesterday, he still did not have much output. Will order a one time dose of Zaroxolyn. We will continue to monitor his intake and output and kidney function. His Creatinine levels have slightly decreased this morning. We will add Metolazone 5 mg PO three times weekly. Family is trying to arrange home hospice, this is reasonable. Pt. seen and eval. by me. No complaints. I agree with the A/P by the REGULATORY ADMINISTRATOR. Chest clear. Irreg rhythm. 2+ lower leg edema. Home with hospice when that can be arranged. [place]
[2020-06-04] MEDS: HumaLOG 300 UNITS/3 ML VIAL SC PRN ×2 (12:36→17:11)
--- NOTE | 2020-06-04 12:44 | PDOC.FMACP ---
Advance Care Planning - Problem (1) Ischemic cardiomyopathy Status: Acute Code(s): I25.5 - ISCHEMIC CARDIOMYOPATHY (2) Acute on chronic renal failure Status: Acute Code(s): N17.9 - ACUTE KIDNEY FAILURE, UNSPECIFIED; N18.9 - CHRONIC KIDNEY DISEASE, UNSPECIFIED Qualifiers: Chronic kidney disease stage: stage 3 (moderate) (3) Acute systolic (congestive) heart failure Status: Acute Code(s): I50.21 - ACUTE SYSTOLIC (CONGESTIVE) HEART FAILURE (4) Palliative care encounter Status: Acute Code(s): Z51.5 - ENCOUNTER FOR PALLIATIVE CARE (5) Physical deconditioning Status: Acute Code(s): R53.81 - OTHER MALAISE - Note Participants: patient, family, palliative care Summary: Palliative Care revisited Advanced Care Planning. The diagnosis, prognosis and goals of care were discussed. Appropriate forms and documentation to accomplish the goals of care were discussed. All questions were answered. Confirmed MPOA and Directives in chart, elected to complete OOHDNAR and transition to hospice. OOHDNAR prepared, communicated with Dr Patel. Elected Standards hospice. Please also refer to Palliative Care notes in note section. Time Spent (mins): 15
--- NOTE | 2020-06-04 14:53 | PDOC.HOSPP ---
- Subjective Encounter Date: 06/04/20 Subjective: No new complaints. - Objective Vital Signs & Weight: Vital Signs (12 hours) Temp Pulse Pulse Pulse Resp BP BP 06/04/20 12:43 85 16 06/04/20 11:35 97.8 F 81 18 06/04/20 11:30 87 78 116/56 L 109/62 06/04/20 07:55 98.6 F 85 16 06/04/20 07:22 06/04/20 07:17 84 16 06/04/20 04:00 97.6 F 78 18 BP BP Pulse Ox 06/04/20 12:43 98 06/04/20 11:35 109/62 94 L 06/04/20 11:30 06/04/20 07:55 115/80 94 L 06/04/20 07:22 98 06/04/20 07:17 97 06/04/20 04:00 99/56 L 95 Weight Weight 200 lb 9.6 oz I&O: 06/03/20 06/04/20 06/05/20 06:59 06:59 06:59 Intake Total 1832.4 1150 Output Total 1950 1710 Balance -117.6 -560 Result Diagrams: 06/04/20 04:02 06/04/20 04:02 Additional Labs: Accuchecks 06/04/20 06/04/20 06/03/20 11:03 05:11 21:43 POC Glucose 207 H 130 H 130 H 06/03/20 16:45 POC Glucose 180 H Hospitalist ROS - Medication Medications: Active Medications Generic Name Dose Route Start Last Admin Trade Name Freq PRN Reason Stop Dose Admin Albuterol/Ipratropium 3 ml 05/30/20 19:00 06/04/20 12:43 Ipratropium/Albuterol Sulfate 3 Ml Neb NEB 3 ml [id number] SAUD Administration Amiodarone HCl 200 mg 06/03/20 15:00 06/04/20 08:25 Amiodarone 200 Mg Tab PO 200 mg TID SAUD Administration Apixaban 2.5 mg 05/30/20 21:00 06/04/20 08:25 Apixaban 2.5 Mg Tab PO 2.5 mg BID SAUD Administration Aspirin 81 mg 05/31/20 09:00 06/04/20 08:25 Aspirin Chewable 81 Mg Tab PO 81 mg DAILY SAUD Administration Atorvastatin Calcium 40 mg 05/30/20 21:00 06/03/20 21:19 Atorvastatin Calcium 40 Mg Tab PO 40 mg HS SAUD Administration Carvedilol 6.25 mg 05/30/20 21:00 06/04/20 08:25 Carvedilol 6.25 Mg Tab PO 6.25 mg BID SAUD Administration Clopidogrel Bisulfate 75 mg 05/31/20 09:00 06/04/20 08:25 Clopidogrel Bisulfate 75 Mg Tab PO 75 mg DAILY SAUD Administration Cyanocobalamin 1,000 mcg 05/31/20 09:00 06/04/20 08:25 Cyanocobalamin (Vitamin B-12) 1,000 Mcg Tab PO 1,000 mcg DAILY SAUD Administration Folic Acid 1 mg 05/31/20 09:00 06/04/20 08:25 Folic Acid 1 Mg Tab PO 1 mg DAILY SAUD Administration Furosemide 40 mg 06/02/20 14:00 06/04/20 06:28 Furosemide 40 Mg/4 Ml Vial SLOW IVP 40 mg 0600,1400 SAUD Administration Insulin Human Lispro 0 units 05/30/20 18:27 06/04/20 12:36 Humalog 300 Units/3 Ml Vial SC 3 unit .MILD SLIDING SCALE PRN Administration Mild Correctional Scale Polyethylene Glycol 17 gm 05/31/20 09:00 06/04/20 08:27 Polyethylene Glycol 3350 17 Gm Packet PO Not Given DAILY SAUD Senna/Docusate Sodium 1 tab 05/30/20 21:00 06/04/20 08:25 Senokot S 8.6-50 Mg Tab PO 1 tab BID SAUD Administration Sodium Chloride 10 ml 06/04/20 09:00 06/04/20 09:14 Flush - Normal Saline 10 Ml Syringe IVF 10 ml Q12HR SAUD Administration - Exam General Appearance: awake alert ENT: normocephalic atraumatic Neck: supple, no JVD Heart: RRR Respiratory: normal chest expansion, no tachypnea Gastrointestinal: soft Extremities: no cyanosis Neurological: no focal deficits Hosp A/P (1) Ischemic cardiomyopathy Code(s): I25.5 - ISCHEMIC CARDIOMYOPATHY Status: Acute (2) CAD (coronary artery disease) Code(s): I25.10 - ATHSCL HEART DISEASE OF [place] CORONARY ARTERY W/O ANG PCTRS Status: Acute Qualifiers: Coronary Disease-Associated Artery/Lesion type: [place] artery [place] vs. transplanted heart: [place] heart Associated angina: with stable angina Qualified Code(s): I25.118 - Atherosclerotic heart disease of [place] coronary artery with other forms of angina pectoris (3) Afib Code(s): I48.91 - UNSPECIFIED ATRIAL FIBRILLATION Status: Chronic Qualifiers: Atrial fibrillation type: longstanding persistent Qualified Code(s): I48.11 - Longstanding persistent atrial fibrillation (4) Dyslipidemia Code(s): E78.5 - HYPERLIPIDEMIA, UNSPECIFIED Status: Chronic (5) HTN (hypertension) Code(s): I10 - ESSENTIAL (PRIMARY) HYPERTENSION Status: Chronic Qualifiers: Hypertension type: essential hypertension Qualified Code(s): I10 - Essential (primary) hypertension - Plan Chest pain likely due to severe multivessel coronary artery disease. Patient is a poor candidate for bypass surgery. Continue medical management per cardiology. The patient saturating well on room air. No significant urine output despite being on Lasix. Compression stockings for lower extremity edema. The patient and family decided to pursue hospice care. Palliative care arranging for home hospice.
[2020-06-04] MEDS: Atorvastatin Calcium 40 MG TAB PO SCH (21:20)
[2020-06-05] MEDS: Furosemide 40 MG/4 ML VIAL SLOW IVP SCH (05:05)
[2020-06-05 05:06] LABS: #Eosinphils 0.2 thou/uL (0.0-0.7); #Lymphocytes 1.7 thou/uL (1.20-3.40); #Monocytes 0.9 thou/uL (0.11-0.59); #Neutrophils 3.7 thou/uL (1.40-6.50); %Basophils 0.4 % (0.0-1.0); %Eosinophils 2.9 % (0.0-10.0); %Lymphocytes 25.9 % (21.0-51.0); %Monocytes 13.5 % (0.0-10.0); %Neutrophils 57.4 % (42.0-75.0); Hemoglobin 13.7 g/dL (14.0-18.0); Mean Corpuscular HGB CONC 33.3 g/dL (32.0-36.0); Mean Corpuscular Hemoglobin 30.1 pg (27.0-31.0); Mean Corpuscular Volume 90.1 fL (78.0-98.0); Mean Platelet Volume 8.5 fL (7.4-10.4); Platelet Count 174 thou/uL (130-400); RBC Distribution Width 12.1 % (11.5-14.5); Red Blood Cell (RBC) Count 4.55 mill/uL (4.70-6.10); White Blood Cell (WBC) Count 6.5 thou/uL (4.8-10.8)
[2020-06-05 05:30] LABS: Anion Gap 17 mmol/L (10-20); BUN (Urea Nitrogen) 49 mg/dL (8.4-25.7); Calc. Creatinine Clearance 29 mL/min (70-130); Calcium 8.9 mg/dL (7.8-10.44); Carbon Dioxide 30 mmol/L (23-31); Chloride 95 mmol/L (98-107); Estimated GFR-MDRD 23; Glucose 137 mg/dL (83-110); Sodium 139 mmol/L (136-145)
[2020-06-05] MEDS ORDERED: Metolazone 5 MG TAB PO SCH (08:30)
[2020-06-05] MEDS: Cyanocobalamin (Vitamin B-12) 1,000 MCG TAB PO SCH (08:39)
[2020-06-05] MEDS: Clopidogrel Bisulfate 75 MG TAB PO SCH (08:39)
[2020-06-05] MEDS: Carvedilol 6.25 MG TAB PO SCH (08:39)
[2020-06-05] MEDS: Aspirin Chewable 81 MG TAB PO SCH (08:39)
[2020-06-05] MEDS: Apixaban 2.5 MG TAB PO SCH (08:40)
[2020-06-05] MEDS: Senokot S 8.6-50 MG TAB PO SCH (08:40)
[2020-06-05] MEDS: Polyethylene Glycol 3350 17 GM Packet PO SCH (08:40)
[2020-06-05] MEDS: Amiodarone 200 MG TAB PO SCH (08:40)
[2020-06-05] MEDS: Folic Acid 1 MG TAB PO SCH (08:40)
--- NOTE | 2020-06-05 10:25 | PDOC.PALPN ---
Palliative Progress Note - Subjective Sitting on the side of the bed, no complaints. Ready to return to home setting. Son at bedside. - Objective Vital Signs: Vital Signs - Most Recent Temp Pulse Resp BP Pulse Ox 98.4 F 94 16 106/61 97 06/05/20 08:35 06/05/20 08:35 06/05/20 08:35 06/05/20 08:35 06/05/20 08:35 - Physical Exam Constitutional: NAD HEENT: EOMI, moist MMs, sclera anicteric Deviation from normal: Perioribital edema Respiratory: no wheezing, unlabored breathing, diminished lung sound Cardiovascular: RRR Gastrointestinal: continent, soft, non-tender Musculoskeletal: no cyanosis, no clubbing Neurology: moves all 4 limbs, no focal deficits Skin: cap refill <2 seconds, fragile Psychiatric: A&O x 3, normal affect, normal mood - Plan Plan: Discussed his transition to the home setting with Hospice. Confirmed hospice company has established contact with family and equipment is in home setting. Son and patient voice ease with decision to transition to hospice. Emotional support and Therapeutic listening offered. Dr Patel has placed D/C orders, communicated to patient and son. [25] minutes spent on this encounter with >50% of the time in counseling and coordination of care. - ROS Constitutional: alert, weakness ENT: other (Denies throat irritation, congestion, cough) Cardiology: other (Denies chest pain or palpitations) Musculoskeletal: arthritis/arthralgias Skin: other (Denies rash or puritis)
[2020-06-05 12:19] VITALS: BP 110/60; TEMP 98
--- NOTE | 2020-06-06 14:52 | EKG ---
Test Reason : Blood Pressure : / mmHG Vent. Rate : 119 BPM Atrial Rate : 131 BPM P-R Int : 000 ms QRS Dur : 126 ms QT Int : 370 ms P-R-T Axes : 000 -51 106 degrees QTc Int : 520 ms Atrial fibrillation with rapid ventricular response Left axis deviation Non-specific intra-ventricular conduction block Inferior infarct , age undetermined Anterolateral infarct , age undetermined Abnormal ECG Confirmed by MARIFER HAYWARD MD ([id number]), editor in chief SOFÍA MULLER ([id number]) on 06/06/2020 2:51:59 PM Referred By: Confirmed By:MARIFER HAYWARD MD
--- NOTE | 2020-06-07 13:30 | DIS ---
DATE OF ADMISSION: 05/30/2020 DATE OF DISCHARGE: 06/05/2020 DISCHARGE DIAGNOSES: 1. Chest pain. 2. Coronary artery disease. 3. Ischemic cardiomyopathy. 4. Atrial fibrillation. 5. Dyslipidemia. 6. Hypertension. DISCHARGE MEDICATIONS: The patient will continue his current home medications with the addition of amiodarone 200 mg orally t.i.d. HISTORY OF PRESENT ILLNESS AND HOSPITAL COURSE: The patient is a 79-year-old male with past medical history of ischemic cardiomyopathy, who was recently discharged from the hospital after being managed for coronary artery disease. 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 Medical management was recommended at that time due to the patient's comorbidities and being deemed as poor surgical candidate per CV Surgery. He returned to the hospital with complaints of chest pain and was evaluated again by Cardiology. Medical management was recommended again. The patient was found to be in a state of acute on chronic exacerbation of heart failure and this was managed with diuretics. He was also started on IV amiodarone for management of his atrial fibrillation and this was changed to oral amiodarone as noted above prior to discharge. The patient and his family met with Palliative Care Team and decided to pursue hospice care, which will be arranged upon discharge. Job ID: [id number]
== END 2020-06-05 13:00 | disposition home or self-care (01) | DRG 280 ==
LOC: ERS 10:54 → 2NO 14:47
PROVIDERS: ADMIT Internal Medicine; ATTEND Internal Medicine
DX: I13.0 Hypertensive heart and chronic kidney disease with heart failure and stage 1 through stage 4 chronic kidney disease, or unspecified chronic kidney disease (principal); I21.4 Non-ST elevation (NSTEMI) myocardial infarction; I50.23 Acute on chronic systolic (congestive) heart failure; I48.20 Chronic atrial fibrillation, unspecified; I25.810 Atherosclerosis of coronary artery bypass graft(s) without angina pectoris; N17.9 Acute kidney failure, unspecified; Z51.5 Encounter for palliative care; E78.5 Hyperlipidemia, unspecified; J45.40 Moderate persistent asthma, uncomplicated; E74.39 Other disorders of intestinal carbohydrate absorption; N18.30 Chronic kidney disease, stage 3 unspecified; I25.5 Ischemic cardiomyopathy; Z79.82 Long term (current) use of aspirin; Z79.51 Long term (current) use of inhaled steroids; Z79.52 Long term (current) use of systemic steroids; Z79.01 Long term (current) use of anticoagulants; Z79.899 Other long term (current) drug therapy; Z85.46 Personal history of malignant neoplasm of prostate; Z95.5 Presence of coronary angioplasty implant and graft; Z90.49 Acquired absence of other specified parts of digestive tract; Z88.0 Allergy status to penicillin; Z88.5 Allergy status to narcotic agent
CPT/HCPCS: 36415; 36416; 71045; 80048; 80053; 80162; 82550; 82553; 83690; 83735; 83880; 84443; 84484; 85025; 85379; 93005; 93798; 94640; 96365; 96375; 97139; J0282; J1160; J1940; J3475; J7070; J7620